=== PATIENT | female | born 1955 | race Caucasian/White ===

== ENCOUNTER 2016-11-24 09:43 | Inpatient (IN) | payer MEDICARE, OTHER ==
[~2016-11-24] VITALS: Ht 157.5 cm; Wt 49.5 kg
[2016-11-24] VITALS (10 sets, daily range): BP systolic 105–112; BP diastolic 64–70; PULSE 85–100; RESP 19–24; TEMP 97.6–98.7; O2SAT 98–100
[2016-11-24] MEDS: SODIUM CHLOR 0.9% 1000 ML INJ 1,000 ML IV SCH (11:30)
[2016-11-24] MEDS ORDERED: ACETAMINOPHEN 325 MG TAB PO PRN (11:30)
[2016-11-24] MEDS ORDERED: CHLORHEXIDINE GLUCONATE 2 % 1 PACK (2 CLOTHS) TOP PRN (11:30)
[2016-11-24] MEDS ORDERED: MISCELLANEOUS NURSING INFORMATION XX SCH (11:30)
[2016-11-24] MEDS ORDERED: MAGNESIUM SULFATE INJ 4 GM in SODIUM CHLORIDE 0.9% INJ 92 ML IV PRN (11:45)
[2016-11-24] MEDS ORDERED: POTASSIUM PHOSPHATE MONOBASIC 500 MG TAB PO PRN (11:45)
[2016-11-24] MEDS ORDERED: POTASSIUM CHLOR 40 MEQ PREMIX 100 ML IV PRN ×2 (11:45)
[2016-11-24] MEDS ORDERED: POTASSIUM CHLOR 20 MEQ PREMIX 100 ML IV PRN (11:45)
[2016-11-24] MEDS ORDERED: MAGNESIUM OXIDE 400 MG TAB PO PRN (11:45)
[2016-11-24] MEDS ORDERED: MAGNESIUM SULFATE INJ 2 GM in SODIUM CHLORIDE 0.9% INJ 96 ML IV PRN (11:45)
[2016-11-24] MEDS ORDERED: POTASSIUM PHOSPHATE INJ 30 MMOL in SODIUM CHLOR 0.9% 250 ML INJ 250 ML IV PRN (11:45)
[2016-11-24] MEDS ORDERED: POTASSIUM PHOSPHATE MONOBASIC 500 MG TAB PO/TUBE PRN (11:45)
[2016-11-24] MEDS ORDERED: SODIUM PHOSPHATE INJ 30 MMOL in SODIUM CHLOR 0.9% 250 ML INJ 240 ML IV PRN (11:45)
[2016-11-24] MEDS: RESP: ALBUTEROL 2.5 MG/IPRATROPIUM 0.5 MG NEB (SCH) NEB ×2 (12:00→21:06)
[2016-11-24] MEDS: LEVOFLOXACIN 750 MG PREMIX INJ 150 ML IV SCH (12:34)
[2016-11-24] MEDS: methylPREDNISolone SOD SUCC 125 MG/2 ML VIAL IV PUSH SCH ×3 (12:34→23:43)
[2016-11-24] MEDS: ENOXAPARIN SODIUM 40 MG/0.4 ML SYRINGE SQ SCH (12:35)
[2016-11-24 13:08] LABS: BLOOD GAS BASE EXCESS 1.9 mmol/L (-2-2); BLOOD GAS CARBOXYHEMOGLOBIN 0.8 % (0-4); BLOOD GAS HCO3 26 mmol/L (22-26); BLOOD GAS O2 HGB SATURATION 97 % (90-100); BLOOD GAS OXYGEN CONTENT 16.7 Vol % (12.0-20.0); BLOOD GAS PCO2 45 mmHg (38-42); BLOOD GAS PO2 153 mmHg (61-120); TEMP CORR TO 98.6
[2016-11-24 13:09] LABS: CRITICAL VALUE NO; OXYGEN DEVICE VENTILATOR; VENT SETTINGS VOLUME/AC 12/500/+5
[2016-11-24 13:10] LABS: FIO2 40 %
[2016-11-24 13:11] LABS: DRAW SITE RT RADIAL; NUMBER OF ARTERIAL PUNCTURES 2; STAT NO; ULNAR PULSE PRESENT
--- NOTE | 2016-11-24 13:24 | HHI.HP ---
[facility] Service Critical Care Medicine Primary Care Physician Unknown Admission Diagnosis Diagnosis: (1) Acute respiratory failure Diagnosis: Principal (2) COPD with acute exacerbation Diagnosis: Principal (3) Hypokalemia Diagnosis: Principal (4) COPD (chronic obstructive pulmonary disease) Diagnosis: Secondary (5) Tobacco abuse Diagnosis: Secondary (6) Hypertension Diagnosis: Secondary Chief Complaint: Severe SOB Respiratory failure Travel History International Travel<30 Days: No Contact w/Intl Traveler <30 Da: No Traveled to Known Affected Are: No Sepsis Criteria SIRS Criteria (2 or more): Heart rate over 90, RR > 20 or PaCO2 < 32 Criteria Outcome: Meets SIRS criteria History of Present Illness Patient is a 60-year-old female with past medical history of COPD, hypertension , tobacco abuse. Apparently patient called EMS for increasing shortness of breath and COPD exacerbation. EMS gave her back to back breathing treatments but due to impending respiratory failure patient was intubated. Patient received 2 mg of Ativan and 20 mg of etomidate for sedation and for intubation. In the ER patient was given IV Solu-Medrol and breathing treatments. Chest x- ray was unremarkable. CT pulmonary angiogram did not show any pulmonary embolism or pneumonia shortly chronic scarring. Patient was transferred to [facility] from [place] ER I evaluated the patient in the ICU. She is intubated sedated has bilateral wheezing on exam. is at the bedside, confirms ongoing smoking history and history of COPD. No previous intubations. I have placed her on scheduled IV Solu-Medrol, scheduled DuoNeb and IV Levaquin. Sputum culture is ordered Review of Systems ROS Limitations: Intubated Past Family Social History Allergies: Coded Allergies: No Known Allergies (Unverified , 11/24/16) Past Medical History COPD Hypertension Tobacco abuse Past Surgical History 4 Reported Medications is unsure of the name of the medications, and they live in [place] Active Ordered Medications Reviewed Family History Unable to obtain family history as patient is intubated Social History No alcohol or drug use Smokes cigarettes Physical Exam Vital Signs Vital Signs Date Time Temp Pulse Resp B/P Pulse Ox O2 Delivery O2 Flow Rate FiO2 11/24/16 12:00 100 40 11/24/16 12:00 98.7 85 24 105/66 100 11/24/16 12:00 85 11/24/16 10:15 100 40 11/24/16 10:00 100 Mechanical Ventilator 11/24/16 10:00 98 Physical Exam GENERAL: Intubated, intermittently coughing on vent SKIN: Warm and dry. No cyanosis or pallor HEAD: Atraumatic. Normocephalic. EYES: Pupils equal and round. ENT: Orotracheally intubated NECK: Trachea midline. No JVD. CARDIOVASCULAR: S1-S2 normal no murmurs RESPIRATORY: Intubated, equal bilateral air entry chest wall rise and auscultation. Bilateral expiratory wheezes and coarse rhonchi GASTROINTESTINAL: Abdomen soft, non-tender, nondistended. Hepatic and splenic margins not palpable. Well-healed abdominal scars MUSCULOSKELETAL: Extremities without clubbing, cyanosis, or edema. No obvious deformities. NEUROLOGICAL: Intubated sedated with propofol. Purposefully moves all extremities Laboratory Laboratory Tests Test 11/24/16 12:55 Blood Gas Puncture Site RT RADIAL Blood Gas Patient Temperature 98.6 Blood Gas HCO3 26 Blood Gas Base Excess 1.9 Blood Gas Oxygen Saturation 97 Arterial Blood pH 7.39 Arterial Blood Partial 45 Pressure CO2 Arterial Blood Partial 153 Pressure O2 Arterial Blood Oxygen Content 16.7 Arterial Blood 0.8 Carboxyhemoglobin Arterial Blood Methemoglobin 1.0 Blood Gas Hemoglobin 12.0 Oxygen Delivery Device VENTILATOR Blood Gas Ventilator Setting VOLUME/AC 12/500/+5 Blood Gas Inspired Oxygen [address] pulmonary angiogram negative for PE. Chronic scarring Assessment and Plan Assessment and Plan NEURO: - Propofol for sedation and ventilator synchrony RESP: Acute COPD exacerbation Acute hypercapnic respiratory failure - AC/VC vent support - Solumedrol 60 mg IV q8h - DuoNeb every 4 hours scheduled and when necessary - Empiric Levaquin - Check sputum culture - Tobacco cessation CV: - Normal saline IV fluids 1L bolus and 75 ml per hour GI: - NPO. IV Protonix 40 mg daily : - Monitor renal function closely. Méndez catheter. ID: - Check sputum culture. Empiric Levaquin HEME: - Monitor CBC, CMP ENDO: Hypokalemia - Electrolyte Replacement per protocol PROPH: - Bilateral lower extremity SCDs. Lovenox 40 mg daily, protonix IV LINES: - Utilize peripheral IVs, central line if needed CC time 38 min Code Status Full Discussed Condition With Patient's and bedside RN Problem Qualifiers (1) Acute respiratory failure: Qualified Code: J96.02 - Acute respiratory failure with hypercapnia Kaylene Hill MD Nov 24, 2016 13:24
[2016-11-24 19:24] LABS: MAGNESIUM 1.9 MG/DL (1.5-2.5)
[2016-11-24] MEDS: CHLORHEXIDINE 0.12% (ORAL KIT) 15 ML CUP MT SCH (20:00)
[2016-11-24] MEDS: FAMOTIDINE 20 MG/2 ML VIAL IV PUSH SCH (20:22)
[2016-11-25] VITALS (21 sets, daily range): BP systolic 97–112; BP diastolic 56–60; PULSE 84–114; RESP 12–27; TEMP 97.8–99.2; O2SAT 93–100
[2016-11-25] MEDS: SODIUM CHLOR 0.9% 1000 ML INJ 1,000 ML IV SCH ×2 (00:50→14:10)
[2016-11-25] MEDS: RESP: ALBUTEROL 2.5 MG/IPRATROPIUM 0.5 MG NEB (SCH) NEB ×7 (04:00→22:55)
[2016-11-25] MEDS: CHLORHEXIDINE GLUCONATE 2 % 1 PACK (2 CLOTHS) TOP SCH (04:00)
[2016-11-25 05:37] LABS: AUTOMATED NEUTROPHIL # 7.5 TH/MM3 (1.8-7.7); BASOPHIL % 0.1 % (0.0-2.0); HEMATOCRIT 36.8 % (35.0-46.0); HEMO FLAGS DIFF FINAL; LYMPH % 6.2 % (9.0-44.0); LYMPHOCYTE # 0.6 TH/MM3 (1.0-4.8); MEAN CELL VOLUME 94.4 FL (80.0-100.0); MEAN CORPUSCULAR HEMOGLOBIN 31.4 PG (27.0-34.0); MEAN CORPUSCULAR HGB CONC 33.3 % (32.0-36.0); MONO % 8.5 % (0.0-8.0); NEUT % 85.2 % (16.0-70.0); PLATELET COUNT 159 TH/MM3 (150-450); WHITE BLOOD COUNT 8.8 TH/MM3 (4.0-11.0)
[2016-11-25] MEDS: methylPREDNISolone SOD SUCC 125 MG/2 ML VIAL IV PUSH SCH ×3 (05:41→18:06)
[2016-11-25 06:02] LABS: ANION GAP 7 MEQ/L (5-15); AST (GOT) 41 U/L (15-37); BICARBONATE 27.3 MEQ/L (21.0-32.0); BLOOD UREA NITROGEN 15 MG/DL (7-18); CHLORIDE 106 MEQ/L (98-107); GLOMERULAR FILTRATION RATE 117 ML/MIN (>89); POTASSIUM 3.7 MEQ/L (3.5-5.1); SODIUM (NA) 140 MEQ/L (136-145)
[2016-11-25 06:04] LABS: ALT (GPT) 30 U/L (10-53)
[2016-11-25 06:05] LABS: ALKALINE PHOSPHATASE 59 U/L (45-117); TOTAL BILIRUBIN ADULT 0.4 MG/DL (0.2-1.0)
--- NOTE | 2016-11-25 06:22 | RADRPT ---
EXAM DATE/TIME: 11/25/2016 04:48 [facility] COMPARISON: CT PULMONARY ANGIOGRAM, November 24, 2016, 7:02. CHEST SINGLE AP, November 24, 2016, 2:57. INDICATIONS : Shortness of breath. MEDICAL HISTORY : Unobtainable. SURGICAL HISTORY : Unobtainable. ENCOUNTER: Subsequent ACUITY: 2 days PAIN SCORE: Non-responsive. LOCATION: Bilateral chest FINDINGS: Portable AP view of the chest demonstrates a normal-sized cardiac silhouette. No effusion, consolidat ion, or pneumothorax is visualized. The bones and soft tissues demonstrate no acute abnormality. ETT and nasogastric tube are present. CONCLUSION: No acute cardiopulmonary abnormality is identified. Sergio Hall MD on November 25, 2016 at 6:20 Board Certified Radiologist. This report was verified electronically.
[2016-11-25] MEDS: CHLORHEXIDINE 0.12% (ORAL KIT) 15 ML CUP MT SCH ×2 (08:52→20:00)
[2016-11-25] MEDS: FAMOTIDINE 20 MG/2 ML VIAL IV PUSH SCH ×2 (08:52→20:43)
[2016-11-25] MEDS: RESP: ALBUTEROL 2.5 MG/3 ML NEB (PRN) INH ×2 (09:29→15:32)
--- NOTE | 2016-11-25 09:40 | HHI.CCPN ---
Subjective Remarks/Hospital Course Patient is a 60-year-old female with past medical history of COPD, hypertension , tobacco abuse. Apparently patient called EMS for increasing shortness of breath and COPD exacerbation. EMS gave her back to back breathing treatments but due to impending respiratory failure patient was intubated. Patient received 2 mg of Ativan and 20 mg of etomidate for sedation and for intubation. In the ER patient was given IV Solu-Medrol and breathing treatments. Chest x- ray was unremarkable. CT pulmonary angiogram did not show any pulmonary embolism or pneumonia shortly chronic scarring. Patient was transferred to [facility] from [place] ER I evaluated the patient in the ICU. She is intubated sedated has bilateral wheezing on exam. is at the bedside, confirms ongoing smoking history and history of COPD. No previous intubations. I have placed her on scheduled IV Solu-Medrol, scheduled DuoNeb and IV Levaquin. Sputum culture is ordered SUBJ 11/25: Remains intubated on sedation lightening patient is alert awake but becomes very agitated. Bilateral wheezing and respiratory distress on CPAP trial, patient was re-sedated due to respiratory distress and agitation Objective Vital Signs Date Time Temp Pulse Resp B/P Pulse Ox O2 Delivery O2 Flow Rate FiO2 11/25/16 09:10 35 11/25/16 09:10 99 11/25/16 07:00 Mechanical Ventilator 11/25/16 06:00 88 11/25/16 04:00 98.6 15 107/59 Intake and Output 11/24/16 11/24/16 11/24/16 07:59 15:59 23:59 Intake Total 346 ml 731 ml Output Total 400 ml 250 ml Balance -54 ml 481 ml Result Diagram: 11/25/16 0521 11/25/16 0521 Other Results Laboratory Tests Test 11/24/16 12:55 Blood Gas Puncture Site RT RADIAL Blood Gas Patient Temperature 98.6 Blood Gas HCO3 26 mmol/L (22-26) Blood Gas Base Excess 1.9 mmol/L (-2-2) Blood Gas Oxygen Saturation 97 % (90-100) Arterial Blood pH 7.39 (7.380-7.420) Arterial Blood Partial 45 mmHg (38-42) Pressure CO2 Arterial Blood Partial 153 mmHg Pressure O2 (61-120) Arterial Blood Oxygen Content 16.7 Vol % (12.0-20.0) Arterial Blood 0.8 % (0-4) Carboxyhemoglobin Arterial Blood Methemoglobin 1.0 % (0-2) Blood Gas Hemoglobin 12.0 G/DL (12.0-16.0) Oxygen Delivery Device VENTILATOR Blood Gas Ventilator Setting VOLUME/AC 12/500/+5 Blood Gas Inspired Oxygen 40 % Imaging CT pulmonary angiogram negative for PE. Chronic scarring Objective Remarks GENERAL: Intubated, intermittently coughing SKIN: Warm and dry. No cyanosis or pallor HEAD: Atraumatic. Normocephalic. EYES: Pupils equal and round. ENT: Orotracheally intubated NECK: Trachea midline. No JVD. CARDIOVASCULAR: S1-S2 normal no murmurs RESPIRATORY: Intubated, equal bilateral air entry chest wall rise and auscultation. Bilateral expiratory wheezes and coarse rhonchi GASTROINTESTINAL: Abdomen soft, non-tender, nondistended. Hepatic and splenic margins not palpable. Well-healed abdominal scars MUSCULOSKELETAL: Extremities without clubbing, cyanosis, or edema. No obvious deformities. NEUROLOGICAL: Intubated sedated with propofol. Purposefully moves all extremities Urinary Catheter: Yes Assessment to: Continue A/P Assessment and Plan NEURO: - Propofol for sedation and ventilator synchrony - Start Precedex to facilitate ventilator weaning RESP: Acute COPD exacerbation Acute hypercapnic respiratory failure - AC/VC vent support, daily CPAP - Solumedrol 60 mg IV q8h - DuoNeb every 4 hours scheduled and when necessary - Empiric Levaquin - F/U sputum culture - Tobacco cessation CV: - Normal saline IV fluids 75 ml per hour GI: - NPO. IV Protonix 40 mg daily : - Monitor renal function closely. Méndez catheter. ID: - F/U sputum culture. Empiric Levaquin HEME: - Monitor CBC, CMP ENDO: Hypokalemia - Electrolyte Replacement per protocol PROPH: - Bilateral lower extremity SCDs. Lovenox 40 mg daily, protonix IV LINES: - Utilize peripheral IVs, central line if needed CC time 32 min Failing CPAP due to severe respiratory distress and wheezing, remains critically ill. Continue IV steroids and DuoNeb with empiric antibiotics. Family at bedside updated Kaylene Hill MD Nov 25, 2016 09:40
[2016-11-25] MEDS: DEXMEDETOMIDINE INJ 200 MCG in SODIUM CHLORIDE 0.9% INJ 50 ML IV SCH (10:28)
[2016-11-25] MEDS ORDERED: RESP: ALBUTEROL 2.5 MG/IPRATROPIUM 0.5 MG NEB (SCH) NEB ONE (11:00)
[2016-11-25] MEDS: LEVOFLOXACIN 750 MG PREMIX INJ 150 ML IV SCH (11:47)
[2016-11-25] MEDS: ENOXAPARIN SODIUM 40 MG/0.4 ML SYRINGE SQ SCH (11:47)
[2016-11-25] MEDS ORDERED: ETOMIDATE 20 MG/10 ML VIAL ONE (15:18)
[2016-11-25] MEDS ORDERED: VECURONIUM BROMIDE 10 MG VIAL ONE (15:21)
[2016-11-25] MEDS: PROPOFOL 1000 MG/100 ML INJ 100 ML IV SCH (15:57)
--- NOTE | 2016-11-25 15:59 | PD.PROCEDR ---
Procedure Note Procedure After the risks and benefits were discussed the following procedure was performed: INTUBATION: The patient was put in optimal position for the procedure. Rapid sequence intubation was initiated by me using 20 milligrams of etomidate IV and 10 milligrams of Vecuronium IV. DL Mac 4 grad 1 view. (After I confirmed a Grade 1 view, the patient was intubated with a 7.5 cuffed endotracheal tube, by RT Nadine Gonzales, with myself being present at head of bed for procedure). Tube placement was confirmed by visualization of the tube and balloon passing through the cords, capnometry and subsequent chest x-ray. Breath sounds were equal and well aerated bilaterally postintubation. No breath sounds over stomach. Patient tolerated procedure well. Kaylene Hill MD Nov 25, 2016 15:59
[2016-11-25 16:51] LABS: BLOOD GAS BASE EXCESS 1.2 mmol/L (-2-2); BLOOD GAS CARBOXYHEMOGLOBIN 0.5 % (0-4); BLOOD GAS HCO3 27 mmol/L (22-26); BLOOD GAS METHEMOGLOBIN 0.9 % (0-2); BLOOD GAS O2 HGB SATURATION 98 % (90-100); BLOOD GAS OXYGEN CONTENT 16.8 Vol % (12.0-20.0); BLOOD GAS PCO2 56 mmHg (38-42); BLOOD GAS PO2 186 mmHg (61-120); TEMP CORR TO 98.6
[2016-11-25 16:52] LABS: CRITICAL VALUE YES; DRAW SITE RT RADIAL; FIO2 50 %; NUMBER OF ARTERIAL PUNCTURES 1; OXYGEN DEVICE VENTILATOR; STAT NO; ULNAR PULSE PRESENT; VENT SETTINGS AC/RR12/VT425/PEEP5
--- NOTE | 2016-11-25 17:19 | RADRPT ---
EXAM DATE/TIME: 11/25/2016 16:18 [facility] COMPARISON: CHEST SINGLE AP, November 25, 2016, 4:48. INDICATIONS : Post intubation. MEDICAL HISTORY : Unobtainable. SURGICAL HISTORY : Unobtainable. ENCOUNTER: Subsequent ACUITY: 1 day PAIN SCORE: Non-responsive. LOCATION: chest FINDINGS: Interval removal of nasogastric catheter. ETT is approximately 2 cm above the annia. Lungs are clear without significant focal pleural or parenchymal opacities. Cardi cell contours are within normal li mits. Remainder of the exam is unchanged. CONCLUSION: 1. ETT approximately 2 cm above the annia. 2. No acute abnormality. Juan Antonio Gallo MD on November 25, 2016 at 17:16 Board Certified Radiologist. This report was verified electronically.
[2016-11-25 18:18] LABS: POTASSIUM 3.5 MEQ/L (3.5-5.1)
[2016-11-25 18:49] LABS: CKMB 5.3 NG/ML (0.5-3.6)
[2016-11-25] MEDS ORDERED: HEPARIN SODIUM - IV 10,000 UNITS/10 ML VIAL IV PRN ×2 (19:30)
[2016-11-25] MEDS ORDERED: ASPIRIN 325 MG TAB PO ONE (20:00)
[2016-11-25] MEDS: HEPARIN 25,000 UNITS-D5W 250 ML - PREMIX IV SCH (20:49)
[2016-11-26] VITALS (17 sets, daily range): BP systolic 89–132; BP diastolic 53–72; PULSE 75–104; RESP 12–26; TEMP 97.8–99.3; O2SAT 98–100
[2016-11-26] MEDS: methylPREDNISolone SOD SUCC 125 MG/2 ML VIAL IV PUSH SCH ×4 (00:12→18:45)
[2016-11-26] MEDS: RESP: ALBUTEROL 2.5 MG/IPRATROPIUM 0.5 MG NEB (SCH) NEB ×6 (02:44→23:27)
[2016-11-26] MEDS: CHLORHEXIDINE GLUCONATE 2 % 1 PACK (2 CLOTHS) TOP SCH (03:02)
[2016-11-26] MEDS: SODIUM CHLOR 0.9% 1000 ML INJ 1,000 ML IV SCH ×2 (03:02→15:26)
[2016-11-26] MEDS: PROPOFOL 1000 MG/100 ML INJ 100 ML IV SCH ×3 (04:01→23:10)
[2016-11-26 04:24] LABS: APTT (PATIENT) 37.7 SEC (24.3-30.1)
[2016-11-26] MEDS: MIDAZOLAM 100 MG/ML INJ 100 ML IV SCH ×2 (06:43→13:07)
[2016-11-26] MEDS ORDERED: ROCURONIUM INJ 50 MG/5 ML VIAL IV ONE (08:45)
[2016-11-26] MEDS: CHLORHEXIDINE 0.12% (ORAL KIT) 15 ML CUP MT SCH ×2 (09:39→20:23)
[2016-11-26] MEDS: FAMOTIDINE 20 MG/2 ML VIAL IV PUSH SCH ×2 (09:46→20:24)
[2016-11-26] MEDS: ASPIRIN 325 MG TAB PO SCH (09:47)
[2016-11-26] MEDS ORDERED: SPIRCAP INH (10:19)
[2016-11-26] MEDS ORDERED: PRED10PA PO (10:19)
[2016-11-26] MEDS ORDERED: GUAI100S5 PO (10:19)
[2016-11-26] MEDS ORDERED: DULO1CAP3 PO (10:19)
[2016-11-26] MEDS ORDERED: DOXY100C PO (10:19)
[2016-11-26] MEDS ORDERED: LISI-515 PO (10:19)
[2016-11-26] MEDS ORDERED: VENTAER INH (10:19)
[2016-11-26] MEDS ORDERED: BUSP10TA PO (10:19)
[2016-11-26] MEDS: RESP: ALBUTEROL 2.5 MG/3 ML NEB (PRN) INH ×2 (10:20→21:22)
--- NOTE | 2016-11-26 10:26 | HHI.CCPN ---
Subjective Remarks/Hospital Course Patient is a 60-year-old female with past medical history of COPD, hypertension , tobacco abuse. Apparently patient called EMS for increasing shortness of breath and COPD exacerbation. EMS gave her back to back breathing treatments but due to impending respiratory failure patient was intubated. Patient received 2 mg of Ativan and 20 mg of etomidate for sedation and for intubation. In the ER patient was given IV Solu-Medrol and breathing treatments. Chest x- ray was unremarkable. CT pulmonary angiogram did not show any pulmonary embolism or pneumonia shortly chronic scarring. Patient was transferred to [facility] from [place] ER I evaluated the patient in the ICU. She is intubated sedated has bilateral wheezing on exam. is at the bedside, confirms ongoing smoking history and history of COPD. No previous intubations. I have placed her on scheduled IV Solu-Medrol, scheduled DuoNeb and IV Levaquin. Sputum culture is ordered SUBJ 11/25: Remains intubated on sedation lightening patient is alert awake but becomes very agitated. Bilateral wheezing and respiratory distress on CPAP trial, patient was re-sedated due to respiratory distress and agitation 11/26: Failed extubation trial yesterday. Developed severe shortness of breath and respiratory distress and was reintubated. Today has bilateral inspiratory and expiratory wheezing. Will not attempt vent weaning today Objective Vital Signs Date Time Temp Pulse Resp B/P Pulse Ox O2 Delivery O2 Flow Rate FiO2 11/26/16 07:32 100 35 11/26/16 06:00 82 11/26/16 04:00 98.3 18 131/71 11/25/16 19:00 Mechanical Ventilator 11/25/16 14:32 3 Intake and Output 11/25/16 11/25/16 11/26/16 08:00 16:00 00:00 Intake Total 666 ml 978 ml 592 ml Output Total 400 ml 325 ml 425 ml Balance 266 ml 653 ml 167 ml Result Diagram: 11/25/16 0521 11/25/16 1739 Other Results Laboratory Tests Test 11/25/16 16:38 Blood Gas Puncture Site RT RADIAL Blood Gas Patient Temperature 98.6 Blood Gas HCO3 27 mmol/L (22-26) Blood Gas Base Excess 1.2 mmol/L (-2-2) Blood Gas Oxygen Saturation 98 % (90-100) Arterial Blood pH 7.31 (7.380-7.420) Arterial Blood Partial 56 mmHg (38-42) Pressure CO2 Arterial Blood Partial 186 mmHg Pressure O2 (61-120) Arterial Blood Oxygen Content 16.8 Vol % (12.0-20.0) Arterial Blood 0.5 % (0-4) Carboxyhemoglobin Arterial Blood Methemoglobin 0.9 % (0-2) Blood Gas Hemoglobin 12.0 G/DL (12.0-16.0) Oxygen Delivery Device VENTILATOR Blood Gas Ventilator Setting AC/RR12/VT425/PEEP5 Blood Gas Inspired Oxygen 50 % Imaging CT pulmonary angiogram negative for PE. Chronic scarring Objective Remarks GENERAL: Intubated, becomes agitated on sedation lightening SKIN: Warm and dry. No cyanosis or pallor HEAD: Atraumatic. Normocephalic. EYES: Pupils equal and round. ENT: Orotracheally intubated NECK: Trachea midline. No JVD. CARDIOVASCULAR: S1-S2 normal no murmurs RESPIRATORY: Intubated, equal bilateral air entry chest wall rise and auscultation. Bilateral expiratory wheezes and coarse rhonchi GASTROINTESTINAL: Abdomen soft, non-tender, nondistended. Hepatic and splenic margins not palpable. Well-healed abdominal scars MUSCULOSKELETAL: Extremities without clubbing, cyanosis, or edema. No obvious deformities. NEUROLOGICAL: Intubated sedated with propofol, versed. Purposefully moves all extremities A/P Assessment and Plan NEURO: - Propofol, Versed for sedation and ventilator synchrony - Apparently takes Tylenol 3 at home. Start fentanyl infusion for pain control RESP: Acute COPD exacerbation Acute hypercapnic respiratory failure - AC/VC vent support, daily CPAP - Patient was extubated yesterday 11/25/16 but, due to respiratory distress was reintubated and next in the next 1 hour - Solu-medrol 60 mg IV q8h - DuoNeb every 4 hours scheduled and when necessary - Empiric Levaquin - F/U sputum culture - Tobacco cessation CV: - Normal saline IV fluids 75 ml per hour GI: - NPO. IV Protonix 40 mg daily : - Monitor renal function closely. Méndez catheter. ID: - F/U sputum culture. Empiric Levaquin HEME: - Monitor CBC, CMP ENDO: Hypokalemia - Electrolyte Replacement per protocol PROPH: - Bilateral lower extremity SCDs. Lovenox 40 mg daily, protonix IV LINES: - Utilize peripheral IVs, central line if needed CC time 35 min Continues to be critically ill with respiratory failure and COPD exacerbation with bilateral wheezing. Failed extubation yesterday almost immediately due to severe COPD Kaylene Hill MD Nov 26, 2016 10:26
[2016-11-26] MEDS ORDERED: guaiFENesin/CODEINE SYRUP 200 MG/20 MG/10 ML CUP PO PRN (10:30)
--- NOTE | 2016-11-26 10:49 | ECHRPT ---
Indication: RULE OUT GA CONCLUSIONS The left ventricular systolic function is shvhdhwa-li-tijrgxi reduced with an estimated ejection fra ction in the range of 35-40%. Wall thickness is measured at the upper limits of normal. Normal left ventricular size. Severe anterior and apical hypokinesis.There is mild tricuspid valve regurgitation. The estimated pulmonary arterial pressure is 33 mmHg. The pulmonary valve is not well visualized. BP: 131 / 71 HR: 89 Rhythm: Sinus MEASUREMENTS (Male / Female) Normal Values Technical Quality:Fair 2D ECHO LV Diastolic Diameter PLAX 4.3 cm 4.2 - 5.9 / 3.9 - 5.3 cm LV Systolic Diameter PLAX 3.7 cm IVS Diastolic Thickness 1.1 cm 0.6 - 1.0 / 0.6 - 0.9 cm LVPW Diastolic Thickness 1.1 cm 0.6 - 1.0 / 0.6 - 0.9 cm LV Relative Wall Thickness 0.5 LVOT Diameter 1.7 cm LA Systolic Diameter LX 3.0 cm 3.0 - 4.0 / 2.7 - 3.8 cm LA Volume Index 23.3 cm/m 16 - 28 cm/m M-MODE Aortic Root Diameter MM 1.9 cm DOPPLER AV Peak Velocity 105.0 cm/s AV Peak Gradient 4.4 mmHg LVOT Peak Velocity 83.4 cm/s LVOT Peak Gradient 2.8 mmHg AV Area Cont Eq pk 1.8 cm TR Peak Velocity 240.0 cm/s TR Peak Gradient 23.0 mmHg PV Peak Velocity 121.0 cm/s PV Peak Gradient 5.9 mmHg FINDINGS LEFT VENTRICLE The left ventricular systolic function is xheniesl-wz-ydperqm reduced with an estimated ejection fra ction in the range of 35-40%. Wall thickness is measured at the upper limits of normal. Normal left ventricular size. Severe anterior and apical hypokinesis. RIGHT VENTRICLE Normal right ventricular size and systolic function. LEFT ATRIUM The left atrial size is normal. RIGHT ATRIUM The right atrial size is normal. ATRIAL SEPTUM Normal atrial septal thickness without atrial level shunting by limited color doppler interrogation. AORTA The aortic root and proximal ascending aorta are normal in size on limited imaging. MITRAL VALVE Structurally normal mitral valve. No mitral valve stenosis or regurgitation. AORTIC VALVE Trileaflet aortic valve. No aortic valve stenosis or regurgitation. TRICUSPID VALVE There is mild tricuspid valve regurgitation. The estimated pulmonary arterial pressure is 33 mmHg. PULMONARY VALVE The pulmonary valve is not well visualized. VESSELS The inferior vena cava is normal in size. PERICARDIUM No pericardial effusion. Samuel Reese MD (Electronically Signed) Final Date:26 November 2016 10:48
[2016-11-26 11:21] LABS: APTT (PATIENT) 34.8 SEC (24.3-30.1)
[2016-11-26] MEDS: LEVOFLOXACIN 750 MG PREMIX INJ 150 ML IV SCH (11:55)
[2016-11-26] MEDS: fentaNYL DRIP 250 ML IV SCH (11:55)
[2016-11-26] MEDS: busPIRone HCL 10 MG TAB PO SCH (20:24)
[2016-11-26 20:27] LABS: APTT (PATIENT) 45.8 SEC (24.3-30.1)
--- NOTE | 2016-11-26 20:55 | MB ---
cc: JUSTINO RIVERA DATE OF CONSULTATION 11/26/16 HISTORY OF PRESENT ILLNESS Ms. Hollingsworth is a 60 year old white female with history of COPD, hypertension and smoking. She was brought to the emergency room by EMS for severe shortness of breath. She was diagnosed with respiratory failure and was intubated. Her pulmonary angiogram showed no evidence of pulmonary embolism or pneumonia. She was diagnosed with COPD exacerbation. She has had recent shortness of breath but no chest pains. Her echocardiogram showed moderate left ventricular dysfunction with an ejection fraction 35-40% with anterior and apical hypokinesis. PAST MEDICAL HISTORY 1. Positive for COPD, 2. Hypertension, 3. Smoking 4. C-sections ALLERGIES None. MEDICATIONS 1. Spiriva 2. BuSpar. 3. Fentanyl. 4. Aspirin 5. IV Heparin 6. Dexmedetomidine 7. Versed 8. Levofloxacin. 9. Propofol. SOCIAL HISTORY The patient does not drink alcohol. She is a smoker. FAMILY HISTORY Positive for heart disease. REVIEW OF SYSTEMS Otherwise negative. PHYSICAL EXAMINATION VITAL SIGNS: Blood pressure 89/63, pulse 83 and regular. HEENT: The patient is intubated and sedated, 2+ carotid upstrokes. LUNGS: With few wheezes and rhonchi. HEART: Regular with no murmur, gallop or rub. ABDOMEN: Soft. No bruits. EXTREMITIES: Without edema. 1+ distal pulses. NEUROLOGIC: Grossly nonfocal. The patient is sedated. LABORATORY DATA Hemoglobin 12.3, potassium 3.5, creatinine 0.5, AST 41, ALT 30, CK 210, CK-MB 5.3, troponin 1.21 and 1.20. DIAGNOSES 1. Acute exacerbation of chronic COPD 2. Acute respiratory failure 3. Moderate left ventricular dysfunction suggestive of ischemic cardiomyopathy. 4. Hypertension 5. Smoking. DISPOSITION Ms. Hollingsworth will be monitored in the ICU. She will be treated for COPD exacerbation. Her echocardiogram found moderate left ventricular dysfunction with anteroapical wall motion abnormality consistent with ischemic cardiomyopathy. Her troponin is only slightly elevated and is not consistent with recent acute coronary event. I recommend to continue ICU care with ventilatory support. Recommend to continue heparin, aspirin. Once she is stable, I recommend to have add beta-danielito as tolerated and GARRETT inhibitor. I recommend to add statin to her regimen. I will follow her for cardiology during hospitalization. Once she is extubated and stable, we will proceed with further cardiology evaluation. The plan will be discussed with the patient's son. MD BROOK[place]N Lora/ /6:33 PM /8:35 PM
[2016-11-26] MEDS ORDERED: SODIUM CHLOR 0.9% 1000 ML INJ 1,000 ML IV ONE (21:15)
[2016-11-27] VITALS (18 sets, daily range): BP systolic 103–132; BP diastolic 56–79; PULSE 52–86; RESP 10–17; TEMP 96.5–99.1; O2SAT 98–100
[2016-11-27] MEDS: methylPREDNISolone SOD SUCC 125 MG/2 ML VIAL IV PUSH SCH ×4 (00:17→18:17)
[2016-11-27] MEDS: HEPARIN 25,000 UNITS-D5W 250 ML - PREMIX IV SCH (01:12)
[2016-11-27] MEDS: RESP: ALBUTEROL 2.5 MG/3 ML NEB (PRN) INH ×3 (02:24→18:04)
[2016-11-27] MEDS: RESP: ALBUTEROL 2.5 MG/IPRATROPIUM 0.5 MG NEB (SCH) NEB ×5 (03:47→20:14)
[2016-11-27] MEDS: CHLORHEXIDINE GLUCONATE 2 % 1 PACK (2 CLOTHS) TOP SCH (04:09)
[2016-11-27 04:45] LABS: AUTOMATED NEUTROPHIL # 8.9 TH/MM3 (1.8-7.7); BASOPHIL % 0.1 % (0.0-2.0); HEMATOCRIT 35.8 % (35.0-46.0); LYMPH % 4.1 % (9.0-44.0); LYMPHOCYTE # 0.4 TH/MM3 (1.0-4.8); MEAN CELL VOLUME 95.5 FL (80.0-100.0); MEAN CORPUSCULAR HEMOGLOBIN 31.3 PG (27.0-34.0); MEAN CORPUSCULAR HGB CONC 32.8 % (32.0-36.0); MONO % 4.4 % (0.0-8.0); NEUT % 91.4 % (16.0-70.0); PLATELET COUNT 180 TH/MM3 (150-450); RED BLOOD COUNT 3.75 MIL/MM3 (4.00-5.30); RED CELL DISTRIBUTION WIDTH 14.3 % (11.6-17.2); WHITE BLOOD COUNT 9.8 TH/MM3 (4.0-11.0)
[2016-11-27 04:54] LABS: HEMO FLAGS AUTO DIFF
[2016-11-27 04:58] LABS: APTT (PATIENT) 41.1 SEC (24.3-30.1)
[2016-11-27 05:12] LABS: ANION GAP 6 MEQ/L (5-15); AST (GOT) 25 U/L (15-37); BICARBONATE 26.4 MEQ/L (21.0-32.0); BLOOD UREA NITROGEN 20 MG/DL (7-18); CHLORIDE 111 MEQ/L (98-107); GLOMERULAR FILTRATION RATE 137 ML/MIN (>89); MAGNESIUM 2.3 MG/DL (1.5-2.5); POTASSIUM 4.1 MEQ/L (3.5-5.1); SODIUM (NA) 143 MEQ/L (136-145)
[2016-11-27 05:14] LABS: ALKALINE PHOSPHATASE 49 U/L (45-117); ALT (GPT) 31 U/L (10-53); TOTAL BILIRUBIN ADULT 0.3 MG/DL (0.2-1.0)
[2016-11-27 05:26] LABS: SCAN/DIFF AUTO DIFF CONFIRMED
--- NOTE | 2016-11-27 05:40 | RADRPT ---
EXAM DATE/TIME: 11/27/2016 04:25 [facility] COMPARISON: CHEST SINGLE AP, November 25, 2016, 16:18. INDICATIONS : Respiratory disease. MEDICAL HISTORY : Unobtainable SURGICAL HISTORY : Unobtainable ENCOUNTER: Subsequent ACUITY: 3 days PAIN SCORE: Non-responsive. LOCATION: Bilateral chest FINDINGS: Single AP view of the chest. Nasogastric tube is now in place with the tip below the [id number] of the radiograph. Endotracheal tube remains in place. Lungs are clear. No evidence of pleural effusion or pneumothorax. CONCLUSION: Nasogastric tube non-place with the tip below the field of view of the radiograph. Kermit Veliz MD on November 27, 2016 at 5:38 Board Certified Radiologist. This report was verified electronically.
[2016-11-27] MEDS: SODIUM CHLOR 0.9% 1000 ML INJ 1,000 ML IV SCH ×2 (06:06→11:52)
[2016-11-27] MEDS: PROPOFOL 1000 MG/100 ML INJ 100 ML IV SCH ×4 (06:40→23:03)
[2016-11-27] MEDS: TIOTROPIUM BROMIDE 18 MCG INH INH SCH (09:00)
[2016-11-27] MEDS: busPIRone HCL 10 MG TAB PO SCH ×2 (09:22→20:24)
[2016-11-27] MEDS: FAMOTIDINE 20 MG/2 ML VIAL IV PUSH SCH ×2 (09:22→20:24)
[2016-11-27] MEDS: ASPIRIN 325 MG TAB PO SCH (09:22)
[2016-11-27] MEDS: CHLORHEXIDINE 0.12% (ORAL KIT) 15 ML CUP MT SCH ×2 (09:23→20:23)
[2016-11-27] MEDS: MIDAZOLAM 100 MG/ML INJ 100 ML IV SCH ×2 (11:51→23:03)
[2016-11-27] MEDS: LEVOFLOXACIN 750 MG PREMIX INJ 150 ML IV SCH (11:51)
[2016-11-27 12:15] LABS: APTT (PATIENT) 49.9 SEC (24.3-30.1)
--- NOTE | 2016-11-27 12:37 | HHI.CCPN ---
Subjective Remarks/Hospital Course Patient is a 60-year-old female with past medical history of COPD, hypertension , tobacco abuse. Apparently patient called EMS for increasing shortness of breath and COPD exacerbation. EMS gave her back to back breathing treatments but due to impending respiratory failure patient was intubated. Patient received 2 mg of Ativan and 20 mg of etomidate for sedation and for intubation. In the ER patient was given IV Solu-Medrol and breathing treatments. Chest x- ray was unremarkable. CT pulmonary angiogram did not show any pulmonary embolism or pneumonia shortly chronic scarring. Patient was transferred to [facility] from [place] [facility] I evaluated the patient in the ICU. She is intubated sedated has bilateral wheezing on exam. is at the bedside, confirms ongoing smoking history and history of COPD. No previous intubations. I have placed her on scheduled IV Solu-Medrol, scheduled DuoNeb and IV Levaquin. Sputum culture is ordered SUBJ 11/25: Remains intubated on sedation lightening patient is alert awake but becomes very agitated. Bilateral wheezing and respiratory distress on CPAP trial, patient was re-sedated due to respiratory distress and agitation 11/26: Failed extubation trial yesterday. Developed severe shortness of breath and respiratory distress and was reintubated. Today has bilateral inspiratory and expiratory wheezing. Will not attempt vent weaning today 11/27: Remains intubated. Continues to have bilateral wheezing. 2D Echo: The LV systolic function is qcxbvarp-ls-rjgopjxc reduced with an estimated EF 35-40% . Severe anterior and apical hypokinesis. Echo consistent with ischemic cardiomyopathy. Further cardiac workup once extubated-Dr. Lind Objective Vital Signs Date Time Temp Pulse Resp B/P Pulse Ox O2 Delivery O2 Flow Rate FiO2 11/27/16 12:00 35 11/27/16 12:00 67 11/27/16 08:18 99 11/27/16 07:00 Mechanical Ventilator 3.00 11/27/16 04:00 99.1 12 112/58 Intake and Output 11/26/16 11/26/16 11/27/16 08:00 16:00 00:00 Intake Total 750 ml 827 ml 1395 ml Output Total 500 ml 300 ml 140 ml Balance 250 ml 527 ml 1255 ml Result Diagram: 11/27/16 0352 11/27/16 0352 Other Results Microbiology Date/Time Procedure Status Source Growth 11/25/16 18:15 Gram Stain - Final Complete Sputum Endotracheal 11/25/16 18:15 Sputum Culture - Final Complete Sputum Endotracheal HEAVY GROWTH NORMAL RESPIRATORY [facility] Imaging CT pulmonary angiogram negative for PE. Chronic scarring Objective Remarks GENERAL: Intubated, becomes agitated on sedation lightening SKIN: Warm and dry. No cyanosis or pallor HEAD: Atraumatic. Normocephalic. EYES: Pupils equal and round. ENT: Orotracheally intubated NECK: Trachea midline. No JVD. CARDIOVASCULAR: S1-S2 normal no murmurs RESPIRATORY: Intubated, equal bilateral air entry. Bilateral expiratory wheezes and coarse rhonchi GASTROINTESTINAL: Abdomen soft, non-tender, nondistended. Hepatic and splenic margins not palpable. Well-healed abdominal scars MUSCULOSKELETAL: Extremities without clubbing, cyanosis, or edema. No obvious deformities. NEUROLOGICAL: Intubated sedated with propofol, versed. Purposefully moves all extremities A/P Assessment and Plan NEURO: - Propofol, Versed and fentanyl for sedation and ventilator synchrony - Apparently takes Tylenol 3 at home. - Daily sedation vacation if patient can tolerate RESP: Acute COPD exacerbation Acute hypercapnic respiratory failure - PRVC vent support, still with significant wheezing. No SBT - Patient was extubated 11/25/16 but, due to respiratory distress was reintubated same day - Solu-medrol 60 mg IV q8h - DuoNeb every 4 hours scheduled and when necessary - Empiric Levaquin - F/U sputum culture - Tobacco cessation CV: Ischemic cardiomyopathy Elevated troponin - Normal saline IV fluids 75 ml per hour-KVO - LV systolic function is sgymcydi-qh-adfkbxm reduced with an estimated EF 35- 40%. - Severe anterior and apical hypokinesis. - Further cardiac workup once extubated, get previous cardiac catheterization report - Start Coreg 3.125 mg twice a day - Continue aspirin. Check lipid profile start Lipitor - Chest x-ray did not show any evidence of heart failure GI: - Start Jevity today. IV Protonix 40 mg daily - Bowel regimen : - Monitor renal function closely. Méndez catheter. ID: - F/U sputum culture. Empiric Levaquin HEME: - Monitor CBC, CMP ENDO: Hypokalemia - Electrolyte Replacement per protocol PROPH: - Bilateral lower extremity SCDs. Lovenox 40 mg daily, protonix IV LINES: - Utilize peripheral IVs, central line if needed CC time 35 min Continues to be critically ill with respiratory failure and COPD exacerbation with bilateral wheezing. Failed extubation 11/25 almost immediately due to severe COPD. now with elevated troponin and ischemic heart disease Kaylene Hill MD Nov 27, 2016 12:37
[2016-11-27] MEDS ORDERED: ROCURONIUM INJ 50 MG/5 ML VIAL IV ONE (13:00)
[2016-11-27] MEDS: CARVEDILOL 3.125 MG TAB PO SCH (13:01)
[2016-11-27] MEDS: BENEPROTEIN POWDER 1 PACK G-TUBE SCH ×2 (13:02→18:17)
[2016-11-27] MEDS: NICOTINE 14 MG/24 HR PATCH TOPICAL SCH (15:09)
--- NOTE | 2016-11-27 18:00 | PD.CARD.PN ---
Subjective Subjective Remarks Intubated, sedated Objective Medications Current Medications Medications (Trade) Dose Ordered Sig/Jeniffer Route Start Time Stop Time Status Last Admin (NS 1000 ml Inj) 1,000 ml @ 75 mls/hr [id number] IV 11/24/16 11:30 11/27/16 11:52 (Tylenol) 650 mg Q6H PRN PO 11/24/16 11:30 (Peridex 0.12% Liq) 15 ml BID@08,20 MT 11/24/16 20:00 11/27/16 09:23 (Pepcid Inj) 20 mg Q12HR IV PUSH 11/24/16 21:00 11/27/16 09:22 Miscellaneous Information 1 [id number] XX 11/24/16 11:30 11/24/16 11:30 (Chlorhexidine 2% Cloth) 3 pack Taper DAILY@04 TOP 11/25/16 04:00 11/21/17 03:59 11/27/16 04:09 Chlorhexidine Gluconate 3 pack 3 pack UNSCH PRN TOP 11/24/16 11:30 Propofol 100 ml @ 0 mls/hr TITRATE IV 11/24/16 11:30 11/27/16 14:13 (Levaquin 750 Mg Premix Inj) 150 ml @ 100 mls/hr Q24H IV 11/24/16 12:00 11/27/16 11:51 Methylprednisolone Sodium Succinate 60 mg 60 mg Q6HR IV PUSH 11/24/16 12:00 11/27/16 11:51 Potassium Chloride 100 ml @ 50 mls/hr Q2H PRN IV 11/24/16 11:45 (KCl 20 Meq Premix Inj) 100 ml @ 50 mls/hr Q2H PRN IV 11/24/16 11:45 Potassium Bicarb/ Potassium Chloride 50 meq 50 meq UNSCH PRN PO 11/24/16 11:45 Potassium Chloride 100 ml @ 25 mls/hr UNSCH PRN IV 11/24/16 11:45 Potassium Chloride 100 ml @ 50 mls/hr Q2H PRN IV 11/24/16 11:45 (Magnesium Sulfate Inj/NS Inj) 100 ml @ 50 mls/hr UNSCH PRN IV 11/24/16 11:45 Magnesium Oxide 800 mg 800 mg UNSCH PRN PO 11/24/16 11:45 (Magnesium Sulfate Inj/NS Inj) 100 ml @ 50 mls/hr UNSCH PRN IV 11/24/16 11:45 Potassium Phosphate 2000 mg 2,000 mg Q4H PRN PO 11/24/16 11:45 (Sodium Phosphate Inj/NS 250 ml Inj) 250 ml @ 42 mls/hr UNSCH PRN IV 11/24/16 11:45 Potassium Phosphate 2000 mg 2,000 mg UNSCH PRN PO/TUBE 11/24/16 11:45 Potassium Phosphate 30 mmol/ Sodium Chloride 260 ml @ 42 mls/hr UNSCH PRN IV 11/24/16 11:45 Midazolam HCl 100 ml @ 0 mls/hr TITRATE IV 11/25/16 00:00 11/27/16 11:51 Dexmedetomidine HCl 200 mcg/ Sodium Chloride 52 ml @ 0 mls/hr TITRATE IV 11/25/16 09:45 11/25/16 10:28 (Heparin-D5W Inj) 250 ml @ 0 mls/hr TITRATE IV 11/25/16 19:30 11/27/16 01:12 (Heparin Inj) 5,000 units UNSCH PRN IV 11/25/16 19:30 (Heparin Inj) 2,500 units UNSCH PRN IV 11/25/16 19:30 Aspirin 325 mg 325 mg DAILY PO 11/26/16 09:00 11/27/16 09:22 (fentaNYL DRIP) 250 ml @ 0 mls/hr TITRATE IV 11/26/16 10:30 11/26/16 11:55 (Buspar) 10 mg BID PO 11/26/16 21:00 11/27/16 09:22 (Robitussin Ac 200-20 Mg/10 ml Liq) 5 ml Q6H PRN PO 11/26/16 10:30 (Spiriva Inh) 18 mcg DAILY INH 11/27/16 09:00 (Beneprotein Powder) 1 pack TID G-TUBE 11/27/16 13:00 11/27/16 13:02 (Coreg) 3.125 mg Q12H PO 11/27/16 13:00 11/27/16 13:01 (Lipitor) 20 mg HS PO 11/27/16 21:00 (Habitrol 14 Mg Patch.24 Hr) 1 patch DAILY TOPICAL 11/27/16 15:00 11/27/16 15:09 Miscellaneous Information 1 HS T-DERMAL 11/27/16 21:00 Vital Signs / I&O Vital Signs Date Time Temp Pulse Resp B/P Pulse Ox O2 Delivery O2 Flow Rate FiO2 11/27/16 16:00 35 11/27/16 16:00 58 11/27/16 15:58 98 35 11/27/16 14:00 60 11/27/16 12:28 99 35 11/27/16 12:00 35 11/27/16 12:00 67 11/27/16 12:00 98.7 62 10 132/73 99 11/27/16 10:00 63 11/27/16 08:18 99 35 11/27/16 08:00 98.6 86 17 121/73 100 11/27/16 08:00 35 11/27/16 08:00 64 11/27/16 07:00 100 Mechanical Ventilator 3.00 35 11/27/16 06:00 72 11/27/16 04:12 100 35 11/27/16 04:00 35 11/27/16 04:00 99.1 84 12 112/58 100 11/27/16 04:00 84 11/27/16 02:00 76 11/27/16 01:15 100 35 11/27/16 00:00 35 11/27/16 00:00 96.5 68 12 103/56 100 11/27/16 00:00 68 11/26/16 22:15 100 35 11/26/16 22:00 77 11/26/16 20:08 100 35 11/26/16 20:00 35 11/26/16 20:00 75 11/26/16 20:00 97.8 76 13 115/62 100 11/26/16 19:00 100 Mechanical Ventilator 35 11/26/16 18:00 83 I/O 11/26/16 11/26/16 11/26/16 11/27/16 11/27/16 11/27/16 07:00 15:00 23:00 07:00 15:00 23:00 Intake Total 750 ml 827 ml 1395 ml 1005 ml 932 ml Output Total 500 ml 300 ml 140 ml 185 ml 250 ml Balance 250 ml 527 ml 1255 ml 820 ml 682 ml Intake Oral 0 ml 0 ml 0 ml IV Total 600 ml 797 ml 1395 ml 1005 ml 932 ml Tube Irrigant 150 ml 30 ml 0 ml Output Urine Total 500 ml 250 ml 140 ml 185 ml 250 ml Gastric Drainage Total 50 ml 0 ml # Bowel Movements 0 0 0 0 Physical Exam GENERAL: Intubated, on the vent, sedated SKIN: Warm and dry. HEAD: Normocephalic. EYES: No scleral icterus. No injection or drainage. NECK: Supple, trachea midline. No JVD or lymphadenopathy. CARDIOVASCULAR: Regular rate and rhythm without murmurs, gallops, or rubs. RESPIRATORY: Breath sounds equal bilaterally. No accessory muscle use. GASTROINTESTINAL: Abdomen soft, non-tender, nondistended. MUSCULOSKELETAL: No cyanosis, or edema. Laboratory Laboratory Tests Test 11/26/16 11/27/16 11/27/16 11/27/16 19:28 03:45 03:52 11:30 Activated Partial 45.8 SEC 41.1 SEC 49.9 SEC Thromboplast Time White Blood Count 9.8 TH/MM3 Red Blood Count 3.75 MIL/MM3 Hemoglobin 11.7 GM/DL Hematocrit 35.8 % Mean Corpuscular Volume 95.5 FL Mean Corpuscular Hemoglobin 31.3 PG Mean Corpuscular Hemoglobin 32.8 % Concent Red Cell Distribution Width 14.3 % Platelet Count 180 TH/MM3 Mean Platelet Volume 9.0 FL Neutrophils (%) (Auto) 91.4 % Lymphocytes (%) (Auto) 4.1 % Monocytes (%) (Auto) 4.4 % Eosinophils (%) (Auto) 0.0 % Basophils (%) (Auto) 0.1 % Neutrophils # (Auto) 8.9 TH/MM3 Lymphocytes # (Auto) 0.4 TH/MM3 Monocytes # (Auto) 0.4 TH/MM3 Eosinophils # (Auto) 0.0 TH/MM3 Basophils # (Auto) 0.0 TH/MM3 CBC Comment AUTO DIFF Differential Comment AUTO DIFF CONFIRMED Sodium Level 143 MEQ/L Potassium Level 4.1 MEQ/L Chloride Level 111 MEQ/L Carbon Dioxide Level 26.4 MEQ/L Anion Gap 6 MEQ/L Blood Urea Nitrogen 20 MG/DL Creatinine 0.46 MG/DL Estimat Glomerular Filtration 137 ML/MIN Rate Random Glucose 124 MG/DL Calcium Level 8.6 MG/DL Magnesium Level 2.3 MG/DL Total Bilirubin 0.3 MG/DL Aspartate Amino Transf 25 U/L (AST/SGOT) Alanine Aminotransferase 31 U/L (ALT/SGPT) Alkaline Phosphatase 49 U/L B-Type Natriuretic Peptide 363 PG/ML Total Protein 5.8 GM/DL Albumin 2.7 GM/DL Imaging Last Impressions Chest X-Ray 11/27/16 0600 Signed Impressions: Service Date/Time: Sunday, November 27, 2016 04:25 - CONCLUSION: Nasogastric tube non-place with the tip below the field of view of the radiograph. Kermit Veliz MD Assessment and Plan Problem List: (1) Acute respiratory failure (2) COPD (chronic obstructive pulmonary disease) (3) Tobacco abuse (4) Hypertension (5) Cardiomyopathy Assessment and Plan Continue ICU care. Wean vent as tolerated. She had cath within the last 2 years in [place], will obtain the results. Dr. Barnard is her swage tender. She will likely need nuclear ST once extubated and stable. D/w pt's son. Problem Qualifiers (1) Acute respiratory failure: Qualified Code: J96.02 - Acute respiratory failure with hypercapnia Pearl Lind MD Nov 27, 2016 18:00
[2016-11-27] MEDS: fentaNYL DRIP 250 ML IV SCH (19:39)
[2016-11-27] MEDS: ATORVASTATIN 20 MG TAB PO SCH (20:24)
[2016-11-27] MEDS: REMOVE OLD PATCH T-DERMAL SCH (21:00)
[2016-11-28] VITALS (19 sets, daily range): BP systolic 114–171; BP diastolic 65–87; PULSE 52–134; RESP 10–30; TEMP 97.7–98.8; O2SAT 93–100
[2016-11-28] MEDS: RESP: ALBUTEROL 2.5 MG/IPRATROPIUM 0.5 MG NEB (SCH) NEB ×6 (00:10→19:23)
[2016-11-28] MEDS: CARVEDILOL 3.125 MG TAB PO SCH ×2 (01:00→13:00)
[2016-11-28] MEDS: methylPREDNISolone SOD SUCC 125 MG/2 ML VIAL IV PUSH SCH ×4 (01:13→18:03)
[2016-11-28] MEDS: PROPOFOL 1000 MG/100 ML INJ 100 ML IV SCH (04:11)
[2016-11-28] MEDS: CHLORHEXIDINE GLUCONATE 2 % 1 PACK (2 CLOTHS) TOP SCH (05:44)
[2016-11-28] MEDS ORDERED: SODIUM BICARBONATE 8.4% INJ 50 MEQ/50 ML SYR IV ONE (06:15)
[2016-11-28 06:24] LABS: HDL CHOLESTEROL 51.2 MG/DL (40.0-60.0)
[2016-11-28 07:25] LABS: APTT (PATIENT) 51.6 SEC (24.3-30.1)
[2016-11-28] MEDS: HEPARIN 25,000 UNITS-D5W 250 ML - PREMIX IV SCH (07:32)
[2016-11-28] MEDS: CHLORHEXIDINE 0.12% (ORAL KIT) 15 ML CUP MT SCH ×2 (08:00→20:00)
[2016-11-28] MEDS: TIOTROPIUM BROMIDE 18 MCG INH INH SCH (08:10)
[2016-11-28] MEDS: BENEPROTEIN POWDER 1 PACK G-TUBE SCH ×3 (09:52→18:00)
[2016-11-28] MEDS: FAMOTIDINE 20 MG/2 ML VIAL IV PUSH SCH ×2 (09:52→20:55)
[2016-11-28] MEDS: SODIUM CHLOR 0.9% 1000 ML INJ 1,000 ML IV SCH (09:52)
[2016-11-28] MEDS: ASPIRIN 325 MG TAB PO SCH (09:53)
[2016-11-28] MEDS: NICOTINE 14 MG/24 HR PATCH TOPICAL SCH (09:53)
[2016-11-28] MEDS: busPIRone HCL 10 MG TAB PO SCH ×2 (09:53→21:04)
--- NOTE | 2016-11-28 10:10 | HHI.CCPN ---
Subjective Remarks/Hospital Course Patient is a 60-year-old female with past medical history of COPD, hypertension , tobacco abuse. Apparently patient called EMS for increasing shortness of breath and COPD exacerbation. EMS gave her back to back breathing treatments but due to impending respiratory failure patient was intubated. Patient received 2 mg of Ativan and 20 mg of etomidate for sedation and for intubation. In the ER patient was given IV Solu-Medrol and breathing treatments. Chest x- ray was unremarkable. CT pulmonary angiogram did not show any pulmonary embolism or pneumonia shortly chronic scarring. Patient was transferred to [facility] from [place] [facility] I evaluated the patient in the ICU. She is intubated sedated has bilateral wheezing on exam. is at the bedside, confirms ongoing smoking history and history of COPD. No previous intubations. I have placed her on scheduled IV Solu-Medrol, scheduled DuoNeb and IV Levaquin. Sputum culture is ordered SUBJ 11/25: Remains intubated on sedation lightening patient is alert awake but becomes very agitated. Bilateral wheezing and respiratory distress on CPAP trial, patient was re-sedated due to respiratory distress and agitation 11/26: Failed extubation trial yesterday. Developed severe shortness of breath and respiratory distress and was reintubated. Today has bilateral inspiratory and expiratory wheezing. Will not attempt vent weaning today 11/27: Remains intubated. Continues to have bilateral wheezing. 2D Echo: The LV systolic function is hbupbhkf-xy-tennywvq reduced with an estimated EF 35-40% . Severe anterior and apical hypokinesis. Echo consistent with ischemic cardiomyopathy. Further cardiac workup once extubated-Dr. Lind 11/28: Remains intubated, heavily sedated for ventilator synchrony. Lateral wheezing appears to have improved. And was air trapping yesterday for that reason ventilatory rate was reduced to 10. Objective Vital Signs Date Time Temp Pulse Resp B/P Pulse Ox O2 Delivery O2 Flow Rate FiO2 11/28/16 07:50 100 35 11/28/16 06:00 58 11/28/16 04:00 98.1 10 122/71 11/27/16 19:00 Mechanical Ventilator 11/27/16 07:00 3.00 Intake and Output 11/27/16 11/27/16 11/27/16 07:59 15:59 23:59 Intake Total 1005 ml 932 ml 1027 ml Output Total 185 ml 250 ml 200 ml Balance 820 ml 682 ml 827 ml Result Diagram: 11/27/16 0352 11/27/16 0352 Other Results Microbiology Date/Time Procedure Status Source Growth 11/25/16 18:15 Gram Stain - Final Complete Sputum Endotracheal 11/25/16 18:15 Sputum Culture - Final Complete Sputum Endotracheal HEAVY GROWTH NORMAL RESPIRATORY [facility] Imaging CT pulmonary angiogram negative for PE. Chronic scarring Objective Remarks GENERAL: Intubated, becomes agitated on sedation lightening SKIN: Warm and dry. No cyanosis or pallor HEAD: Atraumatic. Normocephalic. EYES: Pupils equal and round. ENT: Orotracheally intubated NECK: Trachea midline. No JVD. CARDIOVASCULAR: S1-S2 normal no murmurs RESPIRATORY: Intubated, equal bilateral air entry. Bilateral expiratory wheezes and coarse rhonchi has improved in the interim GASTROINTESTINAL: Abdomen soft, non-tender, nondistended. Hepatic and splenic margins not palpable. Well-healed abdominal scars MUSCULOSKELETAL: Extremities without clubbing, cyanosis, or edema. No obvious deformities. NEUROLOGICAL: Intubated sedated with propofol, versed. Purposefully moves all extremities Urinary Catheter: Yes Assessment to: Continue A/P Assessment and Plan NEURO: - Propofol, Versed and fentanyl for sedation and ventilator synchrony - Start Precedex to facilitate weaning trial - Apparently takes Tylenol 3 at home. - Daily sedation vacation if patient can tolerate RESP: Acute COPD exacerbation Acute hypercapnic respiratory failure - PRVC vent support, improving wheezing. SBT today - Patient was extubated 11/25/16 but, due to respiratory distress was reintubated same day - Solu-medrol 60 mg IV q6h - DuoNeb every 4 hours scheduled and when necessary - Empiric Levaquin - F/U sputum culture-negative - Tobacco cessation CV: Ischemic cardiomyopathy Elevated troponin - Normal saline IV fluids 75 ml per hour-DC. Q Bumex 1 mg 1 - LV systolic function is moderately reduced with an estimated EF 35-40%. Severe anterior and apical hypokinesis. - Further cardiac workup once extubated, get previous cardiac catheterization report - Coreg 3.125 mg twice a day - Continue aspirin. Check lipid profile start Lipitor. Discontinue IV heparin - Chest x-ray did not show any evidence of heart failure GI: - Jevity. IV Protonix 40 mg daily - Bowel regimen : - Monitor renal function closely. Méndez catheter. ID: - F/U sputum culture-negative. Empiric Levaquin HEME: - Monitor CBC, CMP ENDO: Hypokalemia - Electrolyte Replacement per protocol PROPH: - Bilateral lower extremity SCDs. Lovenox 40 mg daily, protonix IV LINES: - Utilize peripheral IVs, central line if needed CC time 35 min Continues to be critically ill with respiratory failure and COPD exacerbation with bilateral wheezing. Failed extubation 11/25 almost immediately due to severe COPD. now with elevated troponin and ischemic heart disease. Will attend SBT again Kaylene Hill MD Nov 28, 2016 10:10
[2016-11-28] MEDS ORDERED: BUMETANIDE INJ 1 MG/4 ML VIAL IV PUSH ONE (10:15)
[2016-11-28] MEDS: DEXMEDETOMIDINE INJ 200 MCG in SODIUM CHLORIDE 0.9% INJ 50 ML IV SCH ×2 (10:46→14:51)
[2016-11-28] MEDS: ENOXAPARIN SODIUM 40 MG/0.4 ML SYRINGE SQ SCH (10:47)
[2016-11-28] MEDS: LEVOFLOXACIN 750 MG PREMIX INJ 150 ML IV SCH (11:57)
[2016-11-28] MEDS: RESP: ALBUTEROL 2.5 MG/3 ML NEB (PRN) INH ×3 (13:05→22:32)
[2016-11-28 13:23] LABS: BLOOD GAS BASE EXCESS 2.8 mmol/L (-2-2); BLOOD GAS CARBOXYHEMOGLOBIN 0.8 % (0-4); BLOOD GAS HCO3 27 mmol/L (22-26); BLOOD GAS METHEMOGLOBIN 0.9 % (0-2); BLOOD GAS O2 HGB SATURATION 94 % (90-100); BLOOD GAS OXYGEN CONTENT 15.6 Vol % (12.0-20.0); BLOOD GAS PCO2 46 mmHg (38-42); BLOOD GAS PO2 86 mmHg (61-120); BLOOD GAS TOTAL HGB 11.7 G/DL (12.0-16.0); CRITICAL VALUE NO; DRAW SITE LT RADIAL; FIO2 35 %; NUMBER OF ARTERIAL PUNCTURES 1; OXYGEN DEVICE VENTILATOR; STAT NO; TEMP CORR TO 98.6; ULNAR PULSE PRESENT; VENT SETTINGS CPAP/PS5/PEEP5
[2016-11-28 13:53] LABS: BLOOD GAS BASE EXCESS 2.8 mmol/L (-2-2); BLOOD GAS CARBOXYHEMOGLOBIN 0.7 % (0-4); BLOOD GAS HCO3 27 mmol/L (22-26); BLOOD GAS METHEMOGLOBIN 0.8 % (0-2); BLOOD GAS O2 HGB SATURATION 96 % (90-100); BLOOD GAS OXYGEN CONTENT 15.9 Vol % (12.0-20.0); BLOOD GAS PCO2 46 mmHg (38-42); BLOOD GAS PO2 80 mmHg (61-120); BLOOD GAS TOTAL HGB 11.8 G/DL (12.0-16.0); CRITICAL VALUE NO; DRAW SITE RT RADIAL; LITER FLOW 3 L/M; NUMBER OF ARTERIAL PUNCTURES 1; OXYGEN DEVICE NASAL CANNULA; STAT NO; TEMP CORR TO 98.6; ULNAR PULSE PRESENT
[2016-11-28] MEDS ORDERED: DEXMEDETOMIDINE HCL 200 MCG/2 ML VIAL ONE (14:46)
[2016-11-28] MEDS: fentaNYL DRIP 250 ML IV SCH (14:51)
--- NOTE | 2016-11-28 16:58 | HHI.CCPN ---
Subjective Remarks/Hospital Course Patient is a 60-year-old female with past medical history of COPD, hypertension , tobacco abuse. Apparently patient called EMS for increasing shortness of breath and COPD exacerbation. EMS gave her back to back breathing treatments but due to impending respiratory failure patient was intubated. Patient received 2 mg of Ativan and 20 mg of etomidate for sedation and for intubation. In the ER patient was given IV Solu-Medrol and breathing treatments. Chest x- ray was unremarkable. CT pulmonary angiogram did not show any pulmonary embolism or pneumonia shortly chronic scarring. Patient was transferred to [facility] from [place] [facility] I evaluated the patient in the ICU. She is intubated sedated has bilateral wheezing on exam. is at the bedside, confirms ongoing smoking history and history of COPD. No previous intubations. I have placed her on scheduled IV Solu-Medrol, scheduled DuoNeb and IV Levaquin. Sputum culture is ordered SUBJ 11/25: Remains intubated on sedation lightening patient is alert awake but becomes very agitated. Bilateral wheezing and respiratory distress on CPAP trial, patient was re-sedated due to respiratory distress and agitation 11/26: Failed extubation trial yesterday. Developed severe shortness of breath and respiratory distress and was reintubated. Today has bilateral inspiratory and expiratory wheezing. Will not attempt vent weaning today 11/27: Remains intubated. Continues to have bilateral wheezing. 2D Echo: The LV systolic function is slcrygdw-cg-uoopinox reduced with an estimated EF 35-40% . Severe anterior and apical hypokinesis. Echo consistent with ischemic cardiomyopathy. Further cardiac workup once extubated-Dr. Lind 11/28: Remains intubated, heavily sedated for ventilator synchrony. Lateral wheezing appears to have improved. And was air trapping yesterday for that reason ventilatory rate was reduced to 10. 11/28 (1645 hours): Patient was extubated about 45 mins ago after meeting acceptable weaning parameters. Nurse reported increased work of breathing and I went to examine the patient. She is clearly labored with severe bronchospasm and poor air flow. I stated to 3 family members in attendance that she was doing poorly and would probably need to be re-intubated. One stated that her oxygen saturation was 100% and that she did not need intubation. I explained about CO2 retention and respiratory failure. I explained that she has advanced COPD which may be exacerbated by bronchitis or heart failure. I explained that her ejection fraction is 35% and they expressed anger that no one had explained this to them. I stated quite simply that her pulmonary function was not adequate and that we need to support her somehow. They want BiPAP. Family states she is too sedated, we will reduce medication. I will comply with there requests. Steroids have been ordered IV q6h. Will add lasix now. Bronchodilators continued. Objective Vital Signs Date Time Temp Pulse Resp B/P Pulse Ox O2 Delivery O2 Flow Rate FiO2 11/28/16 14:00 69 11/28/16 13:00 99 Nasal Cannula 3 11/28/16 12:00 35 11/28/16 12:00 98.8 13 153/84 Intake and Output 11/27/16 11/27/16 11/28/16 08:00 16:00 00:00 Intake Total 1005 ml 932 ml 1027 ml Output Total 185 ml 250 ml 200.0 ml Balance 820 ml 682 ml 827.0 ml Result Diagram: 11/27/16 0352 11/27/16 0352 Other Results Microbiology Date/Time Procedure Status Source Growth 11/25/16 18:15 Gram Stain - Final Complete Sputum Endotracheal 11/25/16 18:15 Sputum Culture - Final Complete Sputum Endotracheal HEAVY GROWTH NORMAL RESPIRATORY [facility] Laboratory Tests Test 11/28/16 11/28/16 12:39 13:36 Blood Gas Puncture Site LT RADIAL RT RADIAL Blood Gas Patient Temperature 98.6 98.6 Blood Gas HCO3 27 mmol/L 27 mmol/L (22-26) (22-26) Blood Gas Base Excess 2.8 mmol/L 2.8 mmol/L (-2-2) (-2-2) Blood Gas Oxygen Saturation 94 % (90-100) 96 % (90-100) Arterial Blood pH 7.39 7.39 (7.380-7.420) (7.380-7.420) Arterial Blood Partial 46 mmHg (38-42) 46 mmHg (38-42) Pressure CO2 Arterial Blood Partial 86 mmHg 80 mmHg Pressure O2 (61-120) (61-120) Arterial Blood Oxygen Content 15.6 Vol % 15.9 Vol % (12.0-20.0) (12.0-20.0) Arterial Blood 0.8 % (0-4) 0.7 % (0-4) Carboxyhemoglobin Arterial Blood Methemoglobin 0.9 % (0-2) 0.8 % (0-2) Blood Gas Hemoglobin 11.7 G/DL 11.8 G/DL (12.0-16.0) (12.0-16.0) Oxygen Delivery Device VENTILATOR NASAL CANNULA Blood Gas Ventilator Setting CPAP/PS5/PEEP5 Blood Gas Inspired Oxygen 35 % Blood Gas Liter Flow 3 L/M Imaging CT pulmonary angiogram negative for PE. Chronic scarring Objective Remarks GENERAL: Intubated, becomes agitated when sedation lightened. SKIN: Warm and dry. No cyanosis or pallor HEAD: Atraumatic. Normocephalic. EYES: Pupils equal and round. ENT: Clear. NECK: Trachea midline. + JVD. CARDIOVASCULAR: S1-S2 normal no murmurs RESPIRATORY: Bilateral expiratory wheezes and coarse rhonchi. Labored. GASTROINTESTINAL: Abdomen soft, non-tender, nondistended. MUSCULOSKELETAL: Extremities without clubbing, cyanosis, or edema. No obvious deformities. NEUROLOGICAL: Purposefully moves all extremities. Exhausted. A/P Assessment and Plan NEURO: - Propofol, Versed and fentanyl for sedation and ventilator synchrony - Start Precedex to facilitate weaning trial - Apparently takes Tylenol 3 at home. RESP: Acute COPD exacerbation Acute hypercapnic respiratory failure - PRVC vent support, improving wheezing. SBT today - Patient was extubated 11/25/16 but, due to respiratory distress was reintubated same day - Solu-medrol 60 mg IV q6h - DuoNeb every 4 hours scheduled and when necessary - Empiric Levaquin - F/U sputum culture-negative - Tobacco cessation CV: Ischemic cardiomyopathy Elevated troponin - Normal saline IV fluids 75 ml per hour-DC. Q Bumex 1 mg 1 - LV systolic function is moderately reduced with an estimated EF 35-40%. Severe anterior and apical hypokinesis. - Further cardiac workup once extubated, get previous cardiac catheterization report - Coreg 3.125 mg twice a day - Continue aspirin. Check lipid profile start Lipitor. Discontinue IV heparin - Chest x-ray did not show any evidence of heart failure GI: - Jevity. IV Protonix 40 mg daily - Bowel regimen : - Monitor renal function closely. Méndez catheter. ID: - F/U sputum culture-negative. Empiric Levaquin HEME: - Monitor CBC, CMP ENDO: Hypokalemia - Electrolyte Replacement per protocol PROPH: - Bilateral lower extremity SCDs. Lovenox 40 mg daily, protonix IV LINES: - Utilize peripheral IVs, central line if needed Overall impression: Continues to be critically ill with respiratory failure and COPD exacerbation with bilateral wheezing. Failed extubation 11/25 almost immediately due to severe COPD. now with elevated troponin and ischemic heart disease. Extubated earlier but has clearly failed. Family wants BiPAP. Critical care 50 mins Peter Garnica MD Nov 28, 2016 16:58 Peter Garnica MD Nov 28, 2016 16:58
[2016-11-28] MEDS ORDERED: FUROSEMIDE 40 MG/4 ML VIAL IV PUSH SCH (17:15)
[2016-11-28] MEDS: MORPHINE SULFATE 4 MG/ML INJ IV PUSH PRN (20:55)
[2016-11-28] MEDS: ATORVASTATIN 20 MG TAB PO SCH (21:04)
[2016-11-28] MEDS ORDERED: DILTIAZEM HCL 25 MG/5 ML VIAL IVP ONE (22:30)
[2016-11-28] MEDS: DILTIAZEM INJ 125 MG in SODIUM CHLORIDE 0.9% INJ 100 ML IV SCH (23:06)
[2016-11-28] MEDS: REMOVE OLD PATCH T-DERMAL SCH (23:15)
[2016-11-29] VITALS (15 sets, daily range): BP systolic 112–149; BP diastolic 61–92; PULSE 80–114; RESP 14–28; TEMP 97.6–99.3; O2SAT 92–98
[2016-11-29] MEDS: methylPREDNISolone SOD SUCC 125 MG/2 ML VIAL IV PUSH SCH ×4 (00:07→18:06)
[2016-11-29] MEDS: MORPHINE SULFATE 4 MG/ML INJ IV PUSH PRN ×4 (00:31→23:10)
[2016-11-29] MEDS: RESP: ALBUTEROL 2.5 MG/IPRATROPIUM 0.5 MG NEB (SCH) NEB ×6 (01:15→19:30)
[2016-11-29] MEDS: CARVEDILOL 3.125 MG TAB PO SCH (02:00)
[2016-11-29] MEDS: DILTIAZEM INJ 125 MG in SODIUM CHLORIDE 0.9% INJ 100 ML IV SCH (03:52)
[2016-11-29] MEDS: CHLORHEXIDINE GLUCONATE 2 % 1 PACK (2 CLOTHS) TOP SCH (04:43)
[2016-11-29 07:04] LABS: ALKALINE PHOSPHATASE 56 U/L (45-117); ALT (GPT) 58 U/L (10-53); ANION GAP 7 MEQ/L (5-15); AST (GOT) 63 U/L (15-37); BICARBONATE 30.6 MEQ/L (21.0-32.0); BLOOD UREA NITROGEN 25 MG/DL (7-18); CHLORIDE 103 MEQ/L (98-107); GLOMERULAR FILTRATION RATE 114 ML/MIN (>89); MAGNESIUM 2.2 MG/DL (1.5-2.5); POTASSIUM 3.6 MEQ/L (3.5-5.1); SODIUM (NA) 141 MEQ/L (136-145); TOTAL BILIRUBIN ADULT 0.5 MG/DL (0.2-1.0)
[2016-11-29 07:06] LABS: APTT (PATIENT) 22.5 SEC (24.3-30.1)
[2016-11-29] MEDS ORDERED: methylPREDNISolone SOD SUCC 125 MG/2 ML VIAL IV PUSH ONE (07:45)
--- NOTE | 2016-11-29 07:47 | HHI.CCPN ---
Subjective Remarks/Hospital Course Patient is a 60-year-old female with past medical history of COPD, hypertension , tobacco abuse. Apparently patient called EMS for increasing shortness of breath and COPD exacerbation. EMS gave her back to back breathing treatments but due to impending respiratory failure patient was intubated. Patient received 2 mg of Ativan and 20 mg of etomidate for sedation and for intubation. In the ER patient was given IV Solu-Medrol and breathing treatments. Chest x- ray was unremarkable. CT pulmonary angiogram did not show any pulmonary embolism or pneumonia shortly chronic scarring. Patient was transferred to [facility] from [place] [facility] I evaluated the patient in the ICU. She is intubated sedated has bilateral wheezing on exam. is at the bedside, confirms ongoing smoking history and history of COPD. No previous intubations. I have placed her on scheduled IV Solu-Medrol, scheduled DuoNeb and IV Levaquin. Sputum culture is ordered SUBJ 11/25: Remains intubated on sedation lightening patient is alert awake but becomes very agitated. Bilateral wheezing and respiratory distress on CPAP trial, patient was re-sedated due to respiratory distress and agitation 11/26: Failed extubation trial yesterday. Developed severe shortness of breath and respiratory distress and was reintubated. Today has bilateral inspiratory and expiratory wheezing. Will not attempt vent weaning today 11/27: Remains intubated. Continues to have bilateral wheezing. 2D Echo: The LV systolic function is [id number] reduced with an estimated EF 35-40% . Severe anterior and apical hypokinesis. Echo consistent with ischemic cardiomyopathy. Further cardiac workup once extubated-Dr. Lind 11/28: Remains intubated, heavily sedated for ventilator synchrony. Lateral wheezing appears to have improved. And was air trapping yesterday for that reason ventilatory rate was reduced to 10. 11/28 (1645 hours): Patient was extubated about 45 mins ago after meeting acceptable weaning parameters. Nurse reported increased work of breathing and I went to examine the patient. She is clearly labored with severe bronchospasm and poor air flow. I stated to 3 family members in attendance that she was doing poorly and would probably need to be re-intubated. One stated that her oxygen saturation was 100% and that she did not need intubation. I explained about CO2 retention and respiratory failure. I explained that she has advanced COPD which may be exacerbated by bronchitis or heart failure. I explained that her ejection fraction is 35% and they expressed anger that no one had explained this to them. I stated quite simply that her pulmonary function was not adequate and that we need to support her somehow. They want BiPAP. Family states she is too sedated, we will reduce medication. I will comply with there requests. Steroids have been ordered IV q6h. Will add lasix now. Bronchodilators continued. 11/29: Events from yesterday noted. Patient currently on high flow nasal cannula. Continues to have bilateral wheezing. Patient is agreeable for BiPAP. Will use BiPAP with intermittent breaks. Objective Vital Signs Date Time Temp Pulse Resp B/P Pulse Ox O2 Delivery O2 Flow Rate FiO2 11/29/16 06:00 90 11/29/16 05:00 92 High Flow Nasal Cannula 20.00 55 11/29/16 04:00 98.8 19 112/61 Intake and Output 11/28/16 11/28/16 11/29/16 08:00 16:00 00:00 Intake Total 1133 ml 1000 ml Output Total 400 ml 1400 ml 1700 ml Balance 733 ml -400 ml -1700 ml Result Diagram: 11/27/16 0352 11/29/16 0523 Other Results Laboratory Tests Test 11/28/16 11/28/16 12:39 13:36 Blood Gas Puncture Site LT RADIAL RT RADIAL Blood Gas Patient Temperature 98.6 98.6 Blood Gas HCO3 27 mmol/L 27 mmol/L (22-26) (22-26) Blood Gas Base Excess 2.8 mmol/L 2.8 mmol/L (-2-2) (-2-2) Blood Gas Oxygen Saturation 94 % (90-100) 96 % (90-100) Arterial Blood pH 7.39 7.39 (7.380-7.420) (7.380-7.420) Arterial Blood Partial 46 mmHg (38-42) 46 mmHg (38-42) Pressure CO2 Arterial Blood Partial 86 mmHg 80 mmHg Pressure O2 (61-120) (61-120) Arterial Blood Oxygen Content 15.6 Vol % 15.9 Vol % (12.0-20.0) (12.0-20.0) Arterial Blood 0.8 % (0-4) 0.7 % (0-4) Carboxyhemoglobin Arterial Blood Methemoglobin 0.9 % (0-2) 0.8 % (0-2) Blood Gas Hemoglobin 11.7 G/DL 11.8 G/DL (12.0-16.0) (12.0-16.0) Oxygen Delivery Device VENTILATOR NASAL CANNULA Blood Gas Ventilator Setting CPAP/PS5/PEEP5 Blood Gas Inspired Oxygen 35 % Blood Gas Liter Flow 3 L/M Imaging CT pulmonary angiogram negative for PE. Chronic scarring Objective Remarks GENERAL: Alert awake. In moderate respiratory distress SKIN: Warm and dry. HEAD: Atraumatic. Normocephalic. EYES: Pupils equal and round. ENT: Clear. Edentulous NECK: Trachea midline. + JVD. CARDIOVASCULAR: S1-S2 normal no murmurs RESPIRATORY: Bilateral expiratory wheezes and coarse rhonchi. Labored breathing , using accessory muscle GASTROINTESTINAL: Abdomen soft, non-tender, nondistended. MUSCULOSKELETAL: Extremities without clubbing, cyanosis, or edema. No obvious deformities. NEUROLOGICAL: Purposefully moves all extremities. Oriented, alert Urinary Catheter: Yes Assessment to: Continue A/P Assessment and Plan NEURO: - Use Precedex as needed for anxiety - Use when necessary Ativan and morphine for anxiety and shortness of breath - Apparently takes Tylenol 3 at home. RESP: Acute COPD exacerbation Acute hypercapnic respiratory failure - Patient was extubated 11/25/16 but, due to respiratory distress was reintubated same day. Now extubated again 11/29 - Solu-Medrol 60 mg IV q6h. Give additional 100 mg IV x1 - DuoNeb every 4 hours scheduled and when necessary - Start Symbicort, Spiriva. Consult pulmonology - Empiric Levaquin - F/U sputum culture-negative - Tobacco cessation CV: Ischemic cardiomyopathy Elevated troponin/NSTEMI Compensated systolic heart failure Sinus tachycardia - IV Lasix 20 mg every 8 hours. LV systolic function moderately reduced EF 35-40 %. Severe anterior and apical hypokinesis. - Further cardiac workup once extubated, get previous cardiac catheterization report - Coreg 3.125 mg twice a day-hold due to sever wheezing. Continue Cardizem infusion - Continue aspirin, Lipitor. Discontinued IV heparin-placed on prophylactic Lovenox - Chest x-ray did not show any evidence of heart failure GI: - Keep NPO except ice chips. IV Protonix 40 mg daily - Bowel regimen : - Monitor renal function closely. Méndez catheter. ID: - F/U sputum culture-negative. Empiric Levaquin HEME: - Monitor CBC, CMP ENDO: Hypokalemia - Electrolyte Replacement per protocol PROPH: - Bilateral lower extremity SCDs. Lovenox 40 mg daily, Protonix IV LINES: - Utilize peripheral IVs, central line if needed Overall impression: Continues to be critically ill with respiratory failure and COPD exacerbation with bilateral wheezing. Failed extubation 11/25 almost immediately due to severe COPD and underlying cardiomyopathy. Updated at the bedside. I have expressed to him very clearly that patient may need reintubation, and due to NSTEMI not ideal to have additional stressors, like increased work of breathing tachypnea tachycardia and hypoxia Critical care 45 mins Kaylene Hill MD Nov 29, 2016 07:47
[2016-11-29] MEDS: CHLORHEXIDINE 0.12% (ORAL KIT) 15 ML CUP MT SCH ×2 (08:00→20:00)
[2016-11-29] MEDS: FAMOTIDINE 20 MG/2 ML VIAL IV PUSH SCH ×2 (08:13→21:22)
[2016-11-29] MEDS: FUROSEMIDE 40 MG/4 ML VIAL IV PUSH SCH ×2 (08:13→16:36)
[2016-11-29] MEDS: LORazepam 2 MG/ML VIAL IV PUSH PRN (08:13)
[2016-11-29] MEDS: NICOTINE 14 MG/24 HR PATCH TOPICAL SCH (08:14)
--- NOTE | 2016-11-29 08:21 | RADRPT ---
EXAM DATE/TIME: 11/29/2016 08:09 [facility] COMPARISON: CHEST SINGLE AP, November 27, 2016, 4:25. INDICATIONS : Respiratory distress. MEDICAL HISTORY : None. SURGICAL HISTORY : None. ENCOUNTER: Initial ACUITY: 1 day PAIN SCORE: 0/10 LOCATION: Bilateral chest FINDINGS: Very minimal parenchymal changes are present apex of the right lung. Left lung is clear. The heart a nd pulmonary vascularity are normal. The portion of the bony skeleton visualized is unremarkable. CONCLUSION: Minimal parenchymal changes apex of the right lung. Vijay Gusman MD FACR on November 29, 2016 at 8:17 Board Certified Radiologist. This report was verified electronically.
[2016-11-29] MEDS: TIOTROPIUM BROMIDE 18 MCG INH INH SCH ×2 (08:26→11:36)
[2016-11-29] MEDS: BENEPROTEIN POWDER 1 PACK G-TUBE SCH ×3 (08:26→18:00)
[2016-11-29] MEDS ORDERED: TIOTROPIUM BROMIDE 18 MCG INH INH SCH (09:00)
[2016-11-29] MEDS: POTASSIUM CHLORIDE 25 MEQ EFFERVESCENT TAB PO SCH (11:35)
[2016-11-29] MEDS: ASPIRIN 325 MG TAB PO SCH (11:36)
[2016-11-29] MEDS: busPIRone HCL 10 MG TAB PO SCH ×2 (11:36→21:22)
[2016-11-29] MEDS: BUDESONIDE-FORMOTEROL 160/4.5 MCG INHALER INH SCH ×2 (11:36→21:00)
[2016-11-29] MEDS: ENOXAPARIN SODIUM 40 MG/0.4 ML SYRINGE SQ SCH (11:37)
[2016-11-29] MEDS: LEVOFLOXACIN 750 MG PREMIX INJ 150 ML IV SCH (11:37)
--- NOTE | 2016-11-29 15:43 | EKG ---
Date Performed: 11/28/2016 Time Performed: 20:27:14 PTAGE: 61 years EKG: Sinus tachycardia with 1 couplet of PVCs. Short CA interval Small inferior Q waves of undet ermined significance Nonspecific ST-T change Abnormal ECG NO PREVIOUS TRACING DOCTOR: Brad Pope Interpretating Date/Time 11/29/2016 15:42:51
[2016-11-29] MEDS: RESP: ALBUTEROL 2.5 MG/3 ML NEB (PRN) INH (17:58)
[2016-11-29] MEDS: REMOVE OLD PATCH T-DERMAL SCH (21:00)
[2016-11-29] MEDS: ATORVASTATIN 20 MG TAB PO SCH (21:22)
[2016-11-30] VITALS (16 sets, daily range): BP systolic 130–159; BP diastolic 72–97; PULSE 83–107; RESP 10–32; TEMP 98.7–99.4; O2SAT 92–99
[2016-11-30] MEDS: methylPREDNISolone SOD SUCC 125 MG/2 ML VIAL IV PUSH SCH ×5 (00:30→22:54)
[2016-11-30] MEDS: FUROSEMIDE 40 MG/4 ML VIAL IV PUSH SCH ×2 (02:15→08:45)
[2016-11-30] MEDS: RESP: ALBUTEROL 2.5 MG/IPRATROPIUM 0.5 MG NEB (SCH) NEB ×7 (03:42→23:35)
[2016-11-30] MEDS: CHLORHEXIDINE GLUCONATE 2 % 1 PACK (2 CLOTHS) TOP SCH (04:00)
[2016-11-30 04:49] LABS: AUTOMATED NEUTROPHIL # 9.3 TH/MM3 (1.8-7.7); BASOPHIL % 0.2 % (0.0-2.0); HEMATOCRIT 37.8 % (35.0-46.0); LYMPHOCYTE # 0.5 TH/MM3 (1.0-4.8); MEAN CELL VOLUME 91.4 FL (80.0-100.0); MEAN CORPUSCULAR HEMOGLOBIN 31.9 PG (27.0-34.0); MEAN CORPUSCULAR HGB CONC 34.9 % (32.0-36.0); MONO % 7.8 % (0.0-8.0); PLATELET COUNT 173 TH/MM3 (150-450); RED BLOOD COUNT 4.14 MIL/MM3 (4.00-5.30); RED CELL DISTRIBUTION WIDTH 13.5 % (11.6-17.2); WHITE BLOOD COUNT 10.7 TH/MM3 (4.0-11.0)
[2016-11-30 05:09] LABS: HEMO FLAGS AUTO DIFF
[2016-11-30 05:16] LABS: ALT (GPT) 55 U/L (10-53); ANION GAP 7 MEQ/L (5-15); AST (GOT) 45 U/L (15-37); BICARBONATE 38.4 MEQ/L (21.0-32.0); BLOOD UREA NITROGEN 16 MG/DL (7-18); CHLORIDE 96 MEQ/L (98-107); GLOMERULAR FILTRATION RATE 114 ML/MIN (>89); MAGNESIUM 2.1 MG/DL (1.5-2.5); SODIUM (NA) 141 MEQ/L (136-145)
[2016-11-30 05:18] LABS: ALKALINE PHOSPHATASE 53 U/L (45-117); TOTAL BILIRUBIN ADULT 0.6 MG/DL (0.2-1.0)
[2016-11-30] MEDS: POTASSIUM CHLOR 20 MEQ PREMIX 100 ML IV PRN ×2 (05:34→22:54)
[2016-11-30] MEDS: POTASSIUM CHLORIDE 25 MEQ EFFERVESCENT TAB PO PRN (05:35)
--- NOTE | 2016-11-30 05:36 | RADRPT ---
EXAM DATE/TIME: 11/30/2016 04:12 [facility] COMPARISON: CHEST SINGLE AP, November 29, 2016, 8:09. INDICATIONS : Respiratory distress. MEDICAL HISTORY : None. SURGICAL HISTORY : None. ENCOUNTER: Subsequent ACUITY: 1 week PAIN SCORE: 0/10 LOCATION: Bilateral chest FINDINGS: A single view of the chest demonstrates the lungs to be symmetrically aerated without evidence of mas s, infiltrate or effusion. The cardiomediastinal contours are unremarkable. Osseous structures are intact. There are multiple overlying electrocardiogram leads and oxygen tubing. CONCLUSION: No acute disease. Huber Barkley MD on November 30, 2016 at 5:34 Board Certified Radiologist. This report was verified electronically.
[2016-11-30] MEDS: CHLORHEXIDINE 0.12% (ORAL KIT) 15 ML CUP MT SCH ×2 (08:00→20:00)
[2016-11-30 08:01] LABS: HYPERSEGMENTED POLYS 1+ (NORMAL); PLATELET ESTIMATE SMEAR NORMAL (NORMAL); PLATELET MORPHOLOGY NORMAL (NORMAL); SCAN/DIFF AUTO DIFF CONFIRMED
[2016-11-30] MEDS: NICOTINE 14 MG/24 HR PATCH TOPICAL SCH (08:43)
[2016-11-30] MEDS: POTASSIUM CHLORIDE 25 MEQ EFFERVESCENT TAB PO SCH (08:44)
[2016-11-30] MEDS: ASPIRIN 325 MG TAB PO SCH (08:45)
[2016-11-30] MEDS: busPIRone HCL 10 MG TAB PO SCH ×2 (08:45→20:01)
[2016-11-30] MEDS: BUDESONIDE-FORMOTEROL 160/4.5 MCG INHALER INH SCH ×3 (08:59→20:00)
[2016-11-30] MEDS: TIOTROPIUM BROMIDE 18 MCG INH INH SCH (08:59)
[2016-11-30] MEDS: PANTOPRAZOLE SOD 40 MG DELAYED RELEASE TAB PO SCH (09:00)
[2016-11-30] MEDS: BENEPROTEIN POWDER 1 PACK G-TUBE SCH ×3 (09:00→17:37)
--- NOTE | 2016-11-30 09:07 | HHI.CCPN ---
Subjective Remarks/Hospital Course Patient is a 60-year-old female with past medical history of COPD, hypertension , tobacco abuse. Apparently patient called EMS for increasing shortness of breath and COPD exacerbation. EMS gave her back to back breathing treatments but due to impending respiratory failure patient was intubated. Patient received 2 mg of Ativan and 20 mg of etomidate for sedation and for intubation. In the ER patient was given IV Solu-Medrol and breathing treatments. Chest x- ray was unremarkable. CT pulmonary angiogram did not show any pulmonary embolism or pneumonia shortly chronic scarring. Patient was transferred to [facility] from [place] ER I evaluated the patient in the ICU. She is intubated sedated has bilateral wheezing on exam. is at the bedside, confirms ongoing smoking history and history of COPD. No previous intubations. I have placed her on scheduled IV Solu-Medrol, scheduled DuoNeb and IV Levaquin. Sputum culture is ordered SUBJ 11/25: Remains intubated on sedation lightening patient is alert awake but becomes very agitated. Bilateral wheezing and respiratory distress on CPAP trial, patient was re-sedated due to respiratory distress and agitation 11/26: Failed extubation trial yesterday. Developed severe shortness of breath and respiratory distress and was reintubated. Today has bilateral inspiratory and expiratory wheezing. Will not attempt vent weaning today 11/27: Remains intubated. Continues to have bilateral wheezing. 2D Echo: The LV systolic function is opylbgrk-ln-fcngjgps reduced with an estimated EF 35-40% . Severe anterior and apical hypokinesis. Echo consistent with ischemic cardiomyopathy. Further cardiac workup once extubated-Dr. Lind 11/28: Remains intubated, heavily sedated for ventilator synchrony. Lateral wheezing appears to have improved. And was air trapping yesterday for that reason ventilatory rate was reduced to 10. 11/28 (1645 hours): Patient was extubated about 45 mins ago after meeting acceptable weaning parameters. Nurse reported increased work of breathing and I went to examine the patient. She is clearly labored with severe bronchospasm and poor air flow. I stated to 3 family members in attendance that she was doing poorly and would probably need to be re-intubated. One stated that her oxygen saturation was 100% and that she did not need intubation. I explained about CO2 retention and respiratory failure. I explained that she has advanced COPD which may be exacerbated by bronchitis or heart failure. I explained that her ejection fraction is 35% and they expressed anger that no one had explained this to them. I stated quite simply that her pulmonary function was not adequate and that we need to support her somehow. They want BiPAP. Family states she is too sedated, we will reduce medication. I will comply with there requests. Steroids have been ordered IV q6h. Will add lasix now. Bronchodilators continued. 11/29: Events from yesterday noted. Patient currently on high flow nasal cannula. Continues to have bilateral wheezing. Patient is agreeable for BiPAP. Will use BiPAP with intermittent breaks. 11/30: Respiratory status improving remains on high flow oxygen. Continues to have bilateral wheezing but improving. Will d/w Dr. Lind re: further cardiac work up. OOB today Objective Vital Signs Date Time Temp Pulse Resp B/P Pulse Ox O2 Delivery O2 Flow Rate FiO2 11/30/16 08:05 97 High Flow Nasal Cannula 15.00 35 11/30/16 04:00 99.3 97 19 159/91 Intake and Output 11/29/16 11/29/16 11/30/16 08:00 16:00 00:00 Intake Total 173 ml 330 ml 480 ml Output Total 650 ml 2850 ml 1350 ml Balance -477 ml -2520 ml -870 ml Result Diagram: 11/30/16 0353 11/30/[address] pulmonary angiogram negative for PE. Chronic scarring Objective Remarks GENERAL: Alert awake. Mild tachypnea SKIN: Warm and dry. HEAD: Atraumatic. Normocephalic. EYES: Pupils equal and round. ENT: Edentulous NECK: Trachea midline. + JVD. CARDIOVASCULAR: S1-S2 normal no murmurs RESPIRATORY: Bilateral inspiratory and expiratory wheezes and coarse rhonchi. Slightly tachypneic GASTROINTESTINAL: Abdomen soft, non-tender, nondistended. MUSCULOSKELETAL: Extremities without clubbing, cyanosis, or edema. NEUROLOGICAL: Alert and oriented. Motor and sensation grossly preserved A/P Assessment and Plan NEURO: - Use Ativan and morphine for anxiety and shortness of breath - Apparently takes Tylenol 3 at home. resume Tylenol #3 for pain RESP: Acute COPD exacerbation Acute hypercapnic respiratory failure - Patient was extubated 11/25/16 but, due to respiratory distress was reintubated same day. Now extubated again 11/28, initially tender was gradually improving now - Solu-Medrol 60 mg IV q6h. reduced dose from tomorrow - DuoNeb every 4 hours scheduled and when necessary - Symbicort, Spiriva. Consulted pulmonology - Empiric Levaquin - Sputum culture-negative - Tobacco cessation, NicoDerm patch CV: Ischemic cardiomyopathy Elevated troponin/NSTEMI Compensated systolic heart failure Sinus tachycardia - IV Lasix 20 mg every 8 hours. Change to lasix 20 mg po daily - LV systolic function moderately reduced EF 35-40%. Severe anterior and apical hypokinesis. - Will discuss with Dr. Marin further cardiac. Get previous cardiac catheterization report - Coreg 3.125 mg twice a day-holding due to sever wheezing, resume once resp status stabilizes. DCd Cardizem infusion - Chest x-ray did not show any evidence of heart failure GI: - Advance diet as tolerated. Protonix 40 mg po daily - Bowel regimen : - Monitor renal function closely. Méndez catheter. ID: - F/U sputum culture-negative. Empiric Levaquin for 7 days HEME: - Monitor CBC, CMP ENDO: Hypokalemia - Electrolyte Replacement per protocol PROPH: - Bilateral lower extremity SCDs. Lovenox 40 mg daily, Protonix po LINES: - Utilize peripheral IVs, central line if needed Overall impression: Showing signs of improvement but respiratory status remains tenuous. Continue ICU care for another 24 hours. Cardiac workup per Dr. Lind Level 3 Kaylene Hill MD Nov 30, 2016 09:07 Kaylene Hill MD Nov 30, 2016 09:07
[2016-11-30] MEDS: ENOXAPARIN SODIUM 40 MG/0.4 ML SYRINGE SQ SCH (10:48)
[2016-11-30] MEDS: LEVOFLOXACIN 750 MG PREMIX INJ 150 ML IV SCH (12:19)
--- NOTE | 2016-11-30 13:33 | PD.CARD.PN ---
Subjective Subjective Remarks Extubated, no angina or excessive dyspnea Objective Medications Current Medications Medications (Trade) Dose Ordered Sig/Jeniffer Route Start Time Stop Time Status Last Admin (Peridex 0.12% Liq) 15 ml BID@08,20 MT 11/24/16 20:00 11/28/16 08:00 Miscellaneous Information 1 Q361D XX 11/24/16 11:30 11/24/16 11:30 (Chlorhexidine 2% Cloth) Taper DAILY@04 TOP 11/25/16 04:00 11/21/17 03:59 11/29/16 04:43 Chlorhexidine Gluconate 3 pack 3 pack UNSCH PRN TOP 11/24/16 11:30 (Levaquin 750 Mg Premix Inj) 150 ml @ 100 mls/hr Q24H IV 11/24/16 12:00 11/30/16 12:19 Methylprednisolone Sodium Succinate 60 mg 60 mg Q6HR IV PUSH 11/24/16 12:00 11/30/16 12:19 Potassium Chloride 100 ml @ 50 mls/hr Q2H PRN IV 11/24/16 11:45 (KCl 20 Meq Premix Inj) 100 ml @ 50 mls/hr Q2H PRN IV 11/24/16 11:45 11/30/16 05:34 Potassium Bicarb/ Potassium Chloride 50 meq 50 meq UNSCH PRN PO 11/24/16 11:45 11/30/16 05:35 Potassium Chloride 100 ml @ 25 mls/hr UNSCH PRN IV 11/24/16 11:45 Potassium Chloride 100 ml @ 50 mls/hr Q2H PRN IV 11/24/16 11:45 (Magnesium Sulfate Inj/NS Inj) 100 ml @ 50 mls/hr UNSCH PRN IV 11/24/16 11:45 Magnesium Oxide 800 mg 800 mg UNSCH PRN PO 11/24/16 11:45 (Magnesium Sulfate Inj/NS Inj) 100 ml @ 50 mls/hr UNSCH PRN IV 11/24/16 11:45 Potassium Phosphate 2000 mg 2,000 mg Q4H PRN PO 11/24/16 11:45 (Sodium Phosphate Inj/NS 250 ml Inj) 250 ml @ 42 mls/hr UNSCH PRN IV 11/24/16 11:45 Potassium Phosphate 2000 mg 2,000 mg UNSCH PRN PO/TUBE 11/24/16 11:45 (Potassium Phosphate Inj/NS 250 ml Inj) 260 ml @ 42 mls/hr UNSCH PRN IV 11/24/16 11:45 (Aspirin) 325 mg DAILY PO 11/26/16 09:00 11/30/16 08:45 (Buspar) 10 mg BID PO 11/26/16 21:00 11/30/16 08:45 (Robitussin Ac 200-20 Mg/10 ml Liq) 5 ml Q6H PRN PO 11/26/16 10:30 (Spiriva Inh) 18 mcg DAILY INH 11/27/16 09:00 11/30/16 08:59 (Beneprotein Powder) 1 pack TID G-TUBE 11/27/16 13:00 11/28/16 09:52 (Coreg) 3.125 mg Q12H PO 11/27/16 13:00 Hold 11/29/16 02:00 (Lipitor) 20 mg HS PO 11/27/16 21:00 11/29/16 21:22 (Habitrol 14 Mg Patch.24 Hr) 1 patch DAILY TOPICAL 11/27/16 15:00 11/30/16 08:43 Miscellaneous Information 1 HS T-DERMAL 11/27/16 21:00 11/28/16 23:15 (Lovenox Inj) 40 mg Q24H SQ 11/28/16 10:15 11/30/16 10:48 (Morphine Inj) 2 mg Q3H PRN IV PUSH 11/28/16 20:45 11/29/16 07:40 (Symbicort 160-4.5 Inh) 2 puff Q12HR INH 11/29/16 09:00 11/30/16 08:59 (Ativan Inj) 1 mg Q2H PRN IV PUSH 11/29/16 07:45 11/29/16 08:13 (Morphine Inj) 2 mg Q3H PRN IV PUSH 11/29/16 07:45 11/29/16 23:10 (Protonix) 40 mg DAILY PO 11/30/16 09:00 (Lasix) 20 mg DAILY PO 12/01/16 09:00 (K-Lyte Cl Eff) 25 meq DAILY PO 12/01/16 09:00 (Tylenol-Codeine #3) 1 tab Q6H PRN PO 11/30/16 09:15 Vital Signs / I&O Vital Signs Date Time Temp Pulse Resp B/P Pulse Ox O2 Delivery O2 Flow Rate FiO2 11/30/16 12:00 98.7 106 30 137/72 97 11/30/16 12:00 105 11/30/16 11:25 99 Venturi Mask 35 11/30/16 10:00 96 11/30/16 08:05 97 High Flow Nasal Cannula 15.00 35 11/30/16 08:00 98.8 102 23 154/79 95 11/30/16 08:00 106 11/30/16 07:00 95 15.00 40 11/30/16 04:00 99.3 97 19 159/91 98 11/30/16 04:00 97 11/30/16 03:30 98 High Flow Nasal Cannula 15.00 35 11/30/16 02:00 89 11/30/16 00:00 83 11/30/16 00:00 99 High Flow Nasal Cannula 15.00 11/30/16 00:00 99.4 83 10 145/97 96 11/29/16 22:00 86 11/29/16 20:00 101 11/29/16 20:00 95 11/29/16 20:00 99.3 84 21 142/89 95 11/29/16 19:30 98 High Flow Nasal Cannula 15.00 40 11/29/16 17:58 96 High Flow Nasal Cannula 15.00 40 11/29/16 16:00 97.6 96 24 135/77 96 I/O 11/29/16 11/29/16 11/29/16 11/30/16 11/30/16 11/30/16 07:00 15:00 23:00 07:00 15:00 23:00 Intake Total 173 ml 330 ml 480 ml Output Total 650 ml 2850 ml 1350 ml Balance -477 ml -2520 ml -870 ml Intake Oral 30 ml 100 ml 480 ml IV Total 143 ml 230 ml Output Urine Total 650 ml 2850 ml 1350 ml Physical Exam GENERAL: In NAD SKIN: Warm and dry. HEAD: Normocephalic. EYES: No scleral icterus. No injection or drainage. NECK: Supple, trachea midline. No JVD or lymphadenopathy. CARDIOVASCULAR: Regular rate and rhythm without murmurs, gallops, or rubs. RESPIRATORY: Breath sounds equal bilaterally. No accessory muscle use. GASTROINTESTINAL: Abdomen soft, non-tender, nondistended. MUSCULOSKELETAL: No cyanosis, or edema. Laboratory Laboratory Tests Test 11/30/16 03:53 White Blood Count 10.7 TH/MM3 Red Blood Count 4.14 MIL/MM3 Hemoglobin 13.2 GM/DL Hematocrit 37.8 % Mean Corpuscular Volume 91.4 FL Mean Corpuscular Hemoglobin 31.9 PG Mean Corpuscular Hemoglobin 34.9 % Concent Red Cell Distribution Width 13.5 % Platelet Count 173 TH/MM3 Mean Platelet Volume 9.3 FL Neutrophils (%) (Auto) 87.0 % Lymphocytes (%) (Auto) 5.0 % Monocytes (%) (Auto) 7.8 % Eosinophils (%) (Auto) 0.0 % Basophils (%) (Auto) 0.2 % Neutrophils # (Auto) 9.3 TH/MM3 Lymphocytes # (Auto) 0.5 TH/MM3 Monocytes # (Auto) 0.8 TH/MM3 Eosinophils # (Auto) 0.0 TH/MM3 Basophils # (Auto) 0.0 TH/MM3 CBC Comment AUTO DIFF Differential Comment AUTO DIFF CONFIRMED Hypersegmented Polys 1+ Platelet Estimate NORMAL Platelet Morphology Comment NORMAL Red Cell Morphology Comment NORMAL Sodium Level 141 MEQ/L Potassium Level 3.0 MEQ/L Chloride Level 96 MEQ/L Carbon Dioxide Level 38.4 MEQ/L Anion Gap 7 MEQ/L Blood Urea Nitrogen 16 MG/DL Creatinine 0.54 MG/DL Estimat Glomerular Filtration 114 ML/MIN Rate Random Glucose 152 MG/DL Calcium Level 8.9 MG/DL Magnesium Level 2.1 MG/DL Total Bilirubin 0.6 MG/DL Aspartate Amino Transf 45 U/L (AST/SGOT) Alanine Aminotransferase 55 U/L (ALT/SGPT) Alkaline Phosphatase 53 U/L Total Protein 6.6 GM/DL Albumin 3.1 GM/DL Imaging Last Impressions Chest X-Ray 11/30/16 0600 Signed Impressions: Service Date/Time: Wednesday, November 30, 2016 04:12 - CONCLUSION: No acute disease. Huber Barkley MD Assessment and Plan Problem List: (1) Acute respiratory failure (2) COPD (chronic obstructive pulmonary disease) (3) Tobacco abuse (4) Hypertension (5) Cardiomyopathy Assessment and Plan Continue ICU care. Successfully weaned and extubated. She had cath within the last 2 years in [place], still trying to obtain the results. 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 Still with mild wheezing. Echo c/w ischemic CM and anterior SC. Proceed with cath and PCI if necessary tomorrow. Problem Qualifiers (1) Acute respiratory failure: Qualified Code: J96.02 - Acute respiratory failure with hypercapnia (2) Cardiomyopathy: Qualified Code: I25.5 - Ischemic cardiomyopathy Pearl Lind MD Nov 30, 2016 13:32
--- NOTE | 2016-11-30 17:22 | HHI.PR ---
Subjective Remarks 61 YOWF with RF, s/p extubation, COPD, CHF,CMP Doing well concerned about having cath Son at Objective Vital Signs Vital Signs Date Time Temp Pulse Resp B/P Pulse Ox O2 Delivery O2 Flow Rate FiO2 11/30/16 16:50 98.7 107 31 140/87 95 11/30/16 16:00 103 11/30/16 14:00 105 11/30/16 12:00 98.7 106 30 137/72 97 11/30/16 12:00 105 11/30/16 11:25 99 Venturi Mask 35 11/30/16 10:00 96 11/30/16 08:05 97 High Flow Nasal Cannula 15.00 35 11/30/16 08:00 98.8 102 23 154/79 95 11/30/16 08:00 106 11/30/16 07:00 95 15.00 40 11/30/16 04:00 99.3 97 19 159/91 98 11/30/16 04:00 97 11/30/16 03:30 98 High Flow Nasal Cannula 15.00 35 11/30/16 02:00 89 11/30/16 00:00 83 11/30/16 00:00 99 High Flow Nasal Cannula 15.00 11/30/16 00:00 99.4 83 10 145/97 96 11/29/16 22:00 86 11/29/16 20:00 101 11/29/16 20:00 95 11/29/16 20:00 99.3 84 21 142/89 95 11/29/16 19:30 98 High Flow Nasal Cannula 15.00 40 11/29/16 17:58 96 High Flow Nasal Cannula 15.00 40 I/O 11/29/16 11/29/16 11/29/16 11/30/16 11/30/16 11/30/16 07:00 15:00 23:00 07:00 15:00 23:00 Intake Total 173 ml 330 ml 480 ml 516 ml Output Total 650 ml 2850 ml 1350 ml 1500 ml Balance -477 ml -2520 ml -870 ml -984 ml Intake Oral 30 ml 100 ml 480 ml 420 ml IV Total 143 ml 230 ml 96 ml Output Urine Total 650 ml 2850 ml 1350 ml 1500 ml # Bowel Movements 0 Result Diagram: 11/30/16 0353 11/30/16 0353 Objective Remarks GENERAL: MBMN WF,NAD SKIN: Warm and dry. HEAD: Normocephalic. EYES: No scleral icterus. No injection or drainage. NECK: Supple, trachea midline. No JVD or lymphadenopathy. CARDIOVASCULAR: Regular rate and rhythm without murmurs, gallops, or rubs. RESPIRATORY: Breath sounds equal bilaterally. No accessory muscle use. End exp rhonchi GASTROINTESTINAL: Abdomen soft, non-tender, nondistended. MUSCULOSKELETAL: No cyanosis, or edema. BACK: Nontender without obvious deformity. No CVA tenderness. A/P Assessment and Plan RF s/p extubation COPD exac CHF CMP Nicotine use PLAN: Aerosol nebs Cont Solumedrol Supplement 02 DW pt and her son Plans for cath in [place]io Mcdermott MD Nov 30, 2016 17:21
[2016-11-30] MEDS: ATORVASTATIN 20 MG TAB PO SCH (20:01)
[2016-11-30] MEDS: REMOVE OLD PATCH T-DERMAL SCH ×2 (20:01→21:00)
[2016-11-30] MEDS: MORPHINE SULFATE 4 MG/ML INJ IV PUSH PRN (20:02)
[2016-11-30] MEDS: LORazepam 2 MG/ML VIAL IV PUSH PRN (22:55)
[2016-12-01] VITALS (14 sets, daily range): BP systolic 127–145; BP diastolic 76–86; PULSE 86–105; RESP 24–45; TEMP 97.5–99.3; O2SAT 90–95
[2016-12-01] MEDS: RESP: ALBUTEROL 2.5 MG/IPRATROPIUM 0.5 MG NEB (SCH) NEB ×6 (03:17→23:13)
[2016-12-01] MEDS: methylPREDNISolone SOD SUCC 125 MG/2 ML VIAL IV PUSH SCH ×3 (03:49→20:36)
[2016-12-01] MEDS: CHLORHEXIDINE GLUCONATE 2 % 1 PACK (2 CLOTHS) TOP SCH ×2 (03:49→20:05)
[2016-12-01] MEDS: MORPHINE SULFATE 4 MG/ML INJ IV PUSH PRN ×4 (03:56→20:39)
--- NOTE | 2016-12-01 05:57 | RADRPT ---
EXAM DATE/TIME: 12/01/2016 03:28 [place] COMPARISON: CHEST SINGLE AP, November 30, 2016, 4:12. INDICATIONS : Shortness of breath. MEDICAL HISTORY : None. SURGICAL HISTORY : None. ENCOUNTER: Subsequent ACUITY: 1 week PAIN SCORE: 0/10 LOCATION: Bilateral chest FINDINGS: A single view of the chest demonstrates the lungs to be symmetrically aerated without evidence of mas s, infiltrate or effusion. The cardiomediastinal contours are unremarkable. Osseous structures are intact. CONCLUSION: No acute disease. Huber Barkley MD on December 01, 2016 at 5:56 Board Certified Radiologist. This report was verified electronically.
[2016-12-01] MEDS: POTASSIUM CHLOR 20 MEQ PREMIX 100 ML IV PRN (05:58)
[2016-12-01] MEDS: POTASSIUM CHLORIDE 25 MEQ EFFERVESCENT TAB PO PRN (06:29)
[2016-12-01] MEDS: ACETAMINOPHEN/CODEINE 300 MG/30 MG TAB PO PRN (06:29)
[2016-12-01] MEDS: CHLORHEXIDINE 0.12% (ORAL KIT) 15 ML CUP MT SCH ×2 (08:00→20:00)
--- NOTE | 2016-12-01 08:32 | MB ---
cc: CARMELLA RUIZ DATE OF CONSULTATION 11/29/[address] Kaylene Hill. REASON FOR CONSULTATION COPD exacerbation . HISTORY OF THE PRESENT ILLNESS Ms. Hollingsworth is a 61-year-old female who has a longstanding history of nicotine use, COPD and coronary artery disease. The patient has seen Dr. Mueller in the past and she had a cardiac catheterization done about two years ago. She follows with Dr. Ty at [facility]. The patient's son and wyfoqcch-aa-tmo are at the bedside. They said she has had not been feeling well for more than a week. She has cough and congestion, was given antibiotics, did not get better. She was at home and was sleeping, and she woke up her that she was not feeling well. EVAC was called and she was went to [facility]. The patient was found to be in respiratory distress and she was transferred to the [facility]. The patient was intubated. She was extubated once and had to be re-intubated. Now she was extubated was, she went DNR. The patient of 100. Respiratory systems to the [facility]. The patient was intubated. She was extubated 1 cm and was intubated. She was extubated yesterday. She is holding on well. She is on nasal cannula, feels weak, mild shortness of breath. Mild wheezing. The patient stated that normally she is up, around and active. Has no seizure, stroke or epilepsy. No deep venous thrombosis or pulmonary embolism. PAST MEDICAL HISTORY Significant for: 1. A history of chronic obstructive pulmonary disease. 2. Coronary artery disease. 3. Hypertension. MEDICATIONS She is currently takin. Lasix 20 milligrams q.8h. 2. Symbicort 160/4.5 two puffs twice a day. 3. Spiriva once a day. 4. Potassium 25 mEq daily. 5. Lorazepam 1 milligram as needed. 6. Morphine as needed. 7. She is on Cardizem drip. 8. Lovenox 40 milligrams daily. 9. Lipitor 20 milligrams daily. 10. Nicotine patch 14 milligrams once a day. 11. Robitussin AC cough syrup. 12. Albuterol/Atrovent nebulizer treatment. 13. Solu-Medrol 60 milligrams q.6h. 14. Levaquin 750 milligrams daily. ALLERGIES NO KNOWN DRUG ALLERGIES. SOCIAL HISTORY She is , has a long history of smoking, continues to smoke one pack of cigarettes per day. Drinks socially. FAMILY HISTORY She has four children. REVIEW OF SYSTEMS Normally she is up, around, active. Denies any weight loss. Intermittent chest pain. PHYSICAL EXAMINATION GENERAL: Elderly female, mild short of breath. She is currently on nasal cannula. Her son and ntvjqvcy-jf-usp are at the bedside. VITAL SIGNS: Blood pressure 140/70, heart rate 97, respiratory rate 14, temperature 99. HEENT: Pupils are equal and reactive to light. Oral mucosa, nasal mucosa normal. NECK: Supple. JVP not raised. CHEST: Air entry equal bilaterally. She has expiratory rhonchi. CARDIOVASCULAR: S1, S2 normal. ABDOMEN: Benign. EXTREMITIES: No edema. IMPRESSION 1. Respiratory failure status post extubation. 2. COPD exacerbation. 3. Hypoxia. She is on high flow oxygen. 4. Nicotine use. 5. Alcohol use. 6. Cardiomyopathy, ejection fraction 35%. PLAN I discussed with the patient and her son at the bedside. She is on high-flow oxygen. We will wean the oxygen. She will use C-PAP at nighttime. Continue IV Solu-Medrol aerosol treatment with albuterol and Atrovent. Continue antibiotics. Once she gets better she will need PFT and we will evaluate her for home oxygen therapy. Thank you Dr. Hill for this consultation. Further treatment will depend on the course in the hospital. MD ROSELINE Rinaldi/PRISCILLA /3:38 PM /8:24 AM [place]
[2016-12-01] MEDS: BENEPROTEIN POWDER 1 PACK G-TUBE SCH ×3 (08:33→16:10)
[2016-12-01] MEDS: busPIRone HCL 10 MG TAB PO SCH ×2 (08:47→20:34)
[2016-12-01] MEDS: ASPIRIN 325 MG TAB PO SCH (08:47)
[2016-12-01] MEDS: NICOTINE 14 MG/24 HR PATCH TOPICAL SCH (08:47)
[2016-12-01] MEDS: PANTOPRAZOLE SOD 40 MG DELAYED RELEASE TAB PO SCH (08:47)
[2016-12-01] MEDS: FUROSEMIDE 20 MG TAB PO SCH (08:47)
[2016-12-01] MEDS: BUDESONIDE-FORMOTEROL 160/4.5 MCG INHALER INH SCH ×2 (08:48→20:33)
[2016-12-01] MEDS: POTASSIUM CHLORIDE 25 MEQ EFFERVESCENT TAB PO SCH (08:48)
[2016-12-01] MEDS: ENOXAPARIN SODIUM 40 MG/0.4 ML SYRINGE SQ SCH (08:49)
[2016-12-01] MEDS: TIOTROPIUM BROMIDE 18 MCG INH INH SCH (08:49)
[2016-12-01 09:57] LABS: AUTOMATED NEUTROPHIL # 10.7 TH/MM3 (1.8-7.7); BASOPHIL % 0.1 % (0.0-2.0); HEMATOCRIT 36.2 % (35.0-46.0); HEMO FLAGS DIFF FINAL; LYMPHOCYTE # 0.4 TH/MM3 (1.0-4.8); MEAN CELL VOLUME 92.7 FL (80.0-100.0); MEAN CORPUSCULAR HEMOGLOBIN 31.5 PG (27.0-34.0); MONO % 6.5 % (0.0-8.0); NEUT % 90.4 % (16.0-70.0); PLATELET COUNT 156 TH/MM3 (150-450); RED BLOOD COUNT 3.91 MIL/MM3 (4.00-5.30); RED CELL DISTRIBUTION WIDTH 13.8 % (11.6-17.2); WHITE BLOOD COUNT 11.8 TH/MM3 (4.0-11.0)
[2016-12-01] MEDS ORDERED: LISINOPRIL 5 MG TAB PO SCH (10:00)
--- NOTE | 2016-12-01 10:02 | HHI.CCPN ---
Subjective Remarks/Hospital Course Patient is a 60-year-old female with past medical history of COPD, hypertension , tobacco abuse. Apparently patient called EMS for increasing shortness of breath and COPD exacerbation. EMS gave her back to back breathing treatments but due to impending respiratory failure patient was intubated. Patient received 2 mg of Ativan and 20 mg of etomidate for sedation and for intubation. In the ER patient was given IV Solu-Medrol and breathing treatments. Chest x- ray was unremarkable. CT pulmonary angiogram did not show any pulmonary embolism or pneumonia shortly chronic scarring. Patient was transferred to [facility] from [place] [facility] I evaluated the patient in the ICU. She is intubated sedated has bilateral wheezing on exam. is at the bedside, confirms ongoing smoking history and history of COPD. No previous intubations. I have placed her on scheduled IV Solu-Medrol, scheduled DuoNeb and IV Levaquin. Sputum culture is ordered SUBJ 11/25: Remains intubated on sedation lightening patient is alert awake but becomes very agitated. Bilateral wheezing and respiratory distress on CPAP trial, patient was re-sedated due to respiratory distress and agitation 11/26: Failed extubation trial yesterday. Developed severe shortness of breath and respiratory distress and was reintubated. Today has bilateral inspiratory and expiratory wheezing. Will not attempt vent weaning today 11/27: Remains intubated. Continues to have bilateral wheezing. 2D Echo: The LV systolic function is nxzptmrc-hp-hycoprzg reduced with an estimated EF 35-40% . Severe anterior and apical hypokinesis. Echo consistent with ischemic cardiomyopathy. Further cardiac workup once extubated-Dr. Lind 11/28: Remains intubated, heavily sedated for ventilator synchrony. Lateral wheezing appears to have improved. And was air trapping yesterday for that reason ventilatory rate was reduced to 10. 11/28 (1645 hours): Patient was extubated about 45 mins ago after meeting acceptable weaning parameters. Nurse reported increased work of breathing and I went to examine the patient. She is clearly labored with severe bronchospasm and poor air flow. I stated to 3 family members in attendance that she was doing poorly and would probably need to be re-intubated. One stated that her oxygen saturation was 100% and that she did not need intubation. I explained about CO2 retention and respiratory failure. I explained that she has advanced COPD which may be exacerbated by bronchitis or heart failure. I explained that her ejection fraction is 35% and they expressed anger that no one had explained this to them. I stated quite simply that her pulmonary function was not adequate and that we need to support her somehow. They want BiPAP. Family states she is too sedated, we will reduce medication. I will comply with there requests. Steroids have been ordered IV q6h. Will add lasix now. Bronchodilators continued. 11/29: Events from yesterday noted. Patient currently on high flow nasal cannula. Continues to have bilateral wheezing. Patient is agreeable for BiPAP. Will use BiPAP with intermittent breaks. 11/30: Respiratory status improving remains on high flow oxygen. Continues to have bilateral wheezing but improving. Will d/w Dr. Lind re: further cardiac work up. OOB today 12/01 Patient is on 4L oxygen with good sats. Afebrile. Objective Vital Signs Date Time Temp Pulse Resp B/P Pulse Ox O2 Delivery O2 Flow Rate FiO2 12/01/16 09:26 94 Nasal Cannula 4.00 12/01/16 08:00 105 12/01/16 08:00 97.5 45 145/86 11/30/16 11:25 35 Intake and Output 11/30/16 11/30/16 12/01/16 08:00 16:00 00:00 Intake Total 516 ml 120 ml Output Total 1500 ml 550 ml Balance -984 ml -430 ml Result Diagram: 11/30/16 0353 11/30/162041 Other Results Laboratory Tests Test 11/30/16 11/30/16 15:37 20:42 Magnesium Level 2.2 MG/DL Potassium Level 3.0 MEQ/L Imaging Last Impressions Chest X-Ray 12/01/16 0600 Signed Impressions: Service Date/Time: Thursday, December 01, 2016 03:28 - CONCLUSION: No acute disease. Huber Barkley MD Objective Remarks GENERAL: Alert awake. SKIN: Warm and dry. HEAD: Atraumatic. Normocephalic. EYES: Pupils equal and round. ENT: Edentulous NECK: Trachea midline. JVD. CARDIOVASCULAR: S1-S2 normal no murmurs RESPIRATORY: B/L equal air entry with few coarse BS, wheezing GASTROINTESTINAL: Abdomen soft, non-tender, nondistended. MUSCULOSKELETAL: Extremities without clubbing, cyanosis, or edema. NEUROLOGICAL: Alert and oriented. Motor and sensation grossly preserved A/P Assessment and Plan NEURO: - Use Ativan and morphine for anxiety and shortness of breath RESP: Acute COPD exacerbation Acute hypercapnic respiratory failure - Patient was extubated 11/25/16 but, due to respiratory distress was reintubated same day. Extubated again 11/28, - Decrease Solu-Medrol 60 mg IV q8h. - DuoNeb every 4 hours scheduled and when necessary - Symbicort, Spiriva. pulmonology - Empiric Levaquin - Sputum culture-negative - Tobacco cessation, NicoDerm patch CXR today- No acute disease CV: Ischemic cardiomyopathy Elevated troponin/NSTEMI Compensated systolic heart failure Sinus tachycardia - Monitor HR and BP keep MAP>65mmHg, on On Lasix 20 mg po daily, add Lisinopril 5mg daily - LV systolic function moderately reduced EF 35-40%. Severe anterior and apical hypokinesis. -Cards is following- Dr. Lind, for possible cardiac cath today - Coreg 3.125 mg twice a day-holding due to sever wheezing, resume once resp status stabilizes. - Chest x-ray did not show any evidence of heart failure GI: - On Po diet. Protonix 40 mg po daily - Bowel regimen : - Monitor renal function, I/O's, electrolytes replacement per protocol. ID: - F/U sputum culture-negative. Empiric Levaquin for 7 days HEME: - Monitor CBC, CMP ENDO: - Electrolyte Replacement per protocol -SSI for glycemic control PROPH: - Bilateral lower extremity SCDs. Lovenox 40 mg daily, Protonix po LINES: - Utilize peripheral IVs, Follow up on labs Level 3 Bao Zimmer MD Dec 01, 2016 10:02
[2016-12-01] MEDS ORDERED: GLUCAGON 1 MG/ML VIAL OTHER PRN (10:15)
[2016-12-01] MEDS ORDERED: DEXTROSE 50% IN WATER 50 ML VIAL(D50) IV PRN (10:15)
[2016-12-01] MEDS: INSULIN NovoLIN REGULAR SUPPLEMENTAL SCALE SQ SCH ×3 (10:15→20:37)
[2016-12-01 10:28] LABS: ALKALINE PHOSPHATASE 48 U/L (45-117); ALT (GPT) 46 U/L (10-53); ANION GAP 7 MEQ/L (5-15); AST (GOT) 31 U/L (15-37); BICARBONATE 32.5 MEQ/L (21.0-32.0); BLOOD UREA NITROGEN 20 MG/DL (7-18); CHLORIDE 103 MEQ/L (98-107); GLOMERULAR FILTRATION RATE 128 ML/MIN (>89); POTASSIUM 4.5 MEQ/L (3.5-5.1); SODIUM (NA) 142 MEQ/L (136-145); TOTAL BILIRUBIN ADULT 0.6 MG/DL (0.2-1.0)
[2016-12-01] MEDS: LEVOFLOXACIN 750 MG PREMIX INJ 150 ML IV SCH (11:11)
[2016-12-01] MEDS ORDERED: IOHEXOL 350 MG/ML 50 ML BTL (for Cath Lab) OTHER ONE (14:00)
[2016-12-01] MEDS ORDERED: IOHEXOL 350 MG/ML 100 ML BTL (for Cath Lab) OTHER ONE (14:00)
[2016-12-01] MEDS ORDERED: MIDAZOLAM HCL 2 MG/2 ML VIAL ONE (14:03)
[2016-12-01] MEDS ORDERED: HEPARIN-NS/PF INJ 500 ML ONE (14:03)
[2016-12-01] MEDS ORDERED: NITROGLYCERIN INJ 5 ML ONE (14:03)
[2016-12-01] MEDS ORDERED: SODIUM CHLOR 0.9% 1000 ML INJ 500 ML IV SCH (15:06)
--- NOTE | 2016-12-01 15:06 | CATHPROC ---
[facility] HIS Report Study Information Study Number Admission Scheduled Start Study Start [id number] Nov 24 2016 10:01AM 12/01/2016 Dec 01 2016 1:39PM [place] [facility] Cardiac Catheterization Admit Source Facility Department Emergency department [facility] - Makeup Artist Physician and Clinical Staff Initial Pearl Cruz Help Desk Coordinator Cathy Correa,LYNN Help Desk Coordinator Leeanna Villegas,LYNN Help Desk Coordinator Bryan Zarate RN Recorder Karissa Oquendo RT(R) (BS) Scrub Krishna Amaral RCIS(BS) Procedures Performed Procedure Location (Site) Vessel Name Angiogram LV LV Ventricle Coronary Angiograms LCA Left Coronary Coronary Angiograms RCA Right Coronary L Heart Cath Equipment Time Administrative Assistant Front Desk Description Size Mfg Part Number Used/Scraped TRANSDUCER, SEAN [id number] 13:41 [employer] GREEN * Used W/STOCKCOCK *[id number] *[id number] [id number] *[id number] *[id number] 13:41 [employer] INDUSTRIES PACK, CCL CUSTOM * Used *[id number] 13:41 [employer] PACER PEN, SKIN DUAL W/ RULER * Used *[id number] 13:41 [employer] WIRE, 3MMJ .035 180CM 180CM Used *[id number] PROBE COVER, STERILE [id number] 13:41 [employer] * Used ULTRASOUND W/ GEL *[id number] 13:41 NAMIC MANIFOLD, 4 PORT * Used *[id number] 13:41 NAMIC TUBING, HIGH PRESSURE 48" 48" Used *[id number] 13:41 [employer] OMNIPAQUE, 350 MG, 150ML 150ML [id number] Used [id number] 13:41 [employer],WARM AIR CCL * Used *[id number] 13:41 [employer]UM[employer] MED[employer] SHEATH, FR5 TERUMO (10CM) FR 5 Used *[id number] History: Current Medications Medication Dosage/Unit Route Frequency Last Date/Time Taken LOVENOX ASA LISINOPRIL History: Allergies Allergy Reaction No Known Allergies History: Risk Factors Family History of Hypertension Dyslipidemia Previous RI Previous Heart Failure Premature CAD Yes No No No No Prior Valve Prior PCI Prior CABG Surgery No No No Cerebrovascular Peripheral Artery Chronic Lung On Dialysis Diabetes Disease Disease Disease No No No Yes No History: Symptoms/Diagnosis Selection Items SOB History: Stress Tests Stress or Imaging Studies Performed No History: Other Current Smoker Method Packs a Day Years Used Pack Years Yes Cigarettes 1 45 45 Labs Hgb (g/dl) Hct (%) WBC (l/cumm) Platelets (thousands) 11.60-17.00 35.00-51.00 4.00-11.00 150.00-450.00 12.3 36.2 11.8 156 Glucose (mg/dl) BUN (mg/dl) Creatinine (mg/dl) BUN:Creatinine (1:x) 74.00-106.00 7.00-18.00 0.50-1.30 10.00-20.00 147 20 0.4 50 Na (meq/l) K (meq/l) 136.00-145.00 3.50-5.10 142 4.5 INR (PTT:PT) 0.90-1.10 1 Troponin I (ng/ml) CPK (u/l) CPK-MB (ng/ML) 0.02-0.05 26.00-308.00 0.50-3.60 1.2 210 5.3 Medication Medication Total Dose (Bolus/Oral) Medication Total Dosage/Unit 1% XYLOCAINE 20 mL VERSED 1 mg Medications (Bolus/Oral) Medication Time Given Dosage/Unit Administered By Reason VERSED 12/01/2016 2:20:30 PM 1 mg Bryan Zarate 1 mg VERSED given in lab by Bryan Zarate, RN in Left Antecubital via Peripheral IV. 1% XYLOCAINE 12/01/2016 2:21:46 PM 20 mL Pearl Lind 20 mL 1% XYLOCAINE given in lab by Pearl Lind in Left Antecubital via Subcutaneous. Medication (Drip) Medication Time Given Dosage/Unit Concentration/Unit Diluent (ml) Solut ion IV Solutions 12/01/2016 1:57:30 PM 0 mL (IV) 500 NaCl .9 IV Solutions given in lab by Cathy Correa, LYNN in Left Antecubital via Peripheral IV. Pump/Drip Lyndon w = 20 ml/hr using NaCl .9. Initial Case Assessment Cardiovascular HR Rhythm NIBP Chest Pain 118 sinus tach 162/97 0 Edema Present Skin color Skin None Normal Warm Dry Circulatory - Right Pulses Dorsalis Pedis Femoral 1 1 Scale (0,1,2,3,4,d) Circulatory - Left Pulses Dorsalis Pedis Femoral 1 1 Scale (0,1,2,3,4,d) Circulatory - Lower Extremities Color Lower Right Color Lower Left Normal Normal Neurological State Oriented to time-place- Alert Moves all extremities person Respiration - General Respiration Rate SpO2 (%) O2 (lpm) (B/min) 17 98 2 Chronological Log Time Study Chronological Log 13:54:02 Patient arrived via Bed. 13:54:02 Patient Name, D.O.B, / Armband Verified By R.N. 13:54:03 Consent signed by the physician and the patient and verified by the Makeup Artist staff. 13:54:04 Pre-op and post- op instructions given; patient acknowledges understanding of instructions. 13:54:24 Verbal Stimulation=2 Physical Stimulation=2 Airway=2 Respiration=2 TOTAL=8. (0=absent, 1=li mited, 2=present) 13:56:48 MD arrived. 13:57:15 Presedation assessment performed by Makeup Artist RN. 13:57:19 Patient has been NPO for More than 6Hrs. 13:57:21 Skin Breakdown none per pt 13:57:25 Patient Warmer Placed on the Table. 13:57:27 Erlin Prominences Protected 13:57:28 A # 20 IV was noted in the Antecubital (left). Grade = 0 IV Solutions given in lab by Cathy Correa, RN in Left Antecubital via Peripheral IV. Pump/Dr ip Flow = 20 ml/hr using 13:57:30 NaCl .9. 13:57:31 History and physical on the chart or being dictated. Vitals capture started with the following parameters, Patient=Adult, Interval=5 min, Initial Pr wwflgf=165 mmHg, 14:03:31 Deflation Rate=5 mmHg, Cuff placed on Right Arm Assessment: Initial Case, FZ=512 BPM, Rhythm=sinus tach, FIRW=009/97 mmhg, Chest Pain=0, Edema= None, Color=Normal, Skin = Warm, Dry Right Pulses: Lemuel Ped=1, Femoral=1 Left Pulses: Lemuel Ped=1, Femoral=1 14:03:35 Lower Right Extremities: Color=Normal Lower Left Extremities: Color=Normal Neurological: State=Alert, Ox3, KRAUS Respiration: Resp=17 B/min, SpO2=98 %, O2=2 lpm 14:04:34 QI=724 bpm, COHM=531/97 mmhg, SpO2=97.0 %, Resp=16 B/min, Pain=0, [place]=10, [place]=2 14:07:06 Reference ECG taken 14:07:53 Bilateral groins prepped with 2% chlorhexidine, and with a 3 min. waiting time. 14:09:06 ND=157 bpm, MROW=502/108 mmhg, SpO2=97.0 %, Resp=15 B/min, Pain=0, [place]=10, [place]=2 14:14:05 TQ=801 bpm, OHJX=886/101 mmhg, SpO2=97.0 %, Resp=22 B/min, Pain=0, Del[place]=10, [place]=2 14:14:07 Pressure channel 1 zeroed. 14:19:06 HE=402 bpm, XBIW=894/104 mmhg, SpO2=98.0 %, Resp=11 B/min, Pain=0, Delmar=10, [place]=2 14:20:30 1 mg VERSED given in lab by Bryan Zarate RN in Left Antecubital via Peripheral IV. Time Out. Correct patient, correct procedure,correct physician, power injector loaded loaded wi th contrast with surgical 14:20:35 team present. Time Out Concurred by MD, individual staff in procedure 14:21:28 Case Start 14:21:46 20 mL 1% XYLOCAINE given in lab by Pearl Lind in Left Antecubital via Subcutaneous. 14:22:31 Access site was Right Femoral Artery using ultrasound 14:23:17 A SHEATH, FR5 TERUMO (10CM) FR 5 was advanced into the Fem Art (right) using the Percutaneo us technique. A PIGTAIL ANG. INFINITI CATHETER FR 5 was advanced over a wire. OMNIPAQUE, 350 MG, 150ML 150ML was used 14:23:55 for injections. 14:24:07 HA=493 bpm, OIEJ=807/98 mmhg, SpO2=96.0 %, Resp=19 B/min, Pain=0, Delmar=10, [place]=2 Recorded Pressure: LV, LS=266, Condition=Condition 1 14:24:47 (Left Ventricle) LV 141/9/11 14:26:06 The LV was injected at 10 cc/sec for a total of 30. OMNIPAQUE, 350 MG, 150ML 150ML used. Recorded Pressure: LV, Ao, RJ=531, Condition=Condition 1 14:26:56 (Left Ventricle) LV 146/13/13, (Aorta) Ao 152/89/116 14:27:31 Catheter was removed A JL 4.0 INFINITI CATHETER FR 5 was advanced over a wire. OMNIPAQUE, 350 MG, 150ML 150ML was us ed for 14:27:36 injections. Recorded Pressure: Ao, PZ=235, Condition=Condition 1 14:28:18 (Aorta) Ao 141/93/115 14:29:04 W[place]=459 bpm, FDZL=862/94 mmhg, SpO2=98.0 %, Resp=20 B/min, Pain=0, Del[place]=10, [place]=2 14:29:48 The LCA was injected and visualized at various angles. OMNIPAQUE, 350 MG, 150ML 150ML used . 14:32:04 Catheter was removed A AR MOD INFINITI CATHETER FR 5 was advanced over a wire. OMNIPAQUE, 350 MG, 150ML 150ML was us ed for 14:32:05 injections. 14:32:28 The RCA was injected and visualized at various angles. OMNIPAQUE, 350 MG, 150ML 150ML used . 14:33:56 Catheter was removed 14:33:59 Case End 14:34:03 HR=97 bpm, OHNA=920/79 mmhg, SpO2=98.0 %, Resp=19 B/min, Pain=0, Delmar=10, [place]=2 14:34:33 Catheter(s) removed without difficulty 14:35:16 No case complications noted. 14:35:20 Cine recording checked. 14:35:23 Bedside Report will be given. 14:35:26 Contrast Scanned 14:35:28 A Left Heart Cath was performed. 14:38:30 Sheath removed; pressure applied to access site. 14:39:05 HR=93 bpm, PZRU=371/84 mmhg, SpO2=98 %, Resp=21 B/min, Pain=0, Delmar=10, [place]=2 14:44:06 HR=97 bpm, PDKD=623/77 mmhg, SpO2=98.0 %, Resp=24 B/min, Pain=0, [place]=10, [place]=2 14:49:05 HR=97 bpm, BWGJ=190/76 mmhg, SpO2=98.0 %, Resp=23 B/min, Pain=0, Del[place]=10, [place]=2 14:53:58 Sterile dressing applied to site 14:54:00 IQ=538 bpm, IIAT=806/85 mmhg, Resp=23 B/min, Pain=0, Delmar=10, [place]=2 14:54:02 [facility] called. 14:59:24 [facility] End Study - Contrast Media Used In Study Contrast Total Opened (mL) Total Used (mL) Total Wasted (mL) Omnipaque 120 120 0 End Study - Maximum Contrast Load Max Contrast Load (mL) 650.0 End Study - Radiation Exposure Fluoro Time (minutes) 1.3 End Study - Sheaths Sheaths Pulled By Sheath Hold Time (min) Krishna Amaral End Study - Patient Disposition Complications Transferred To Interventional Outcome No Critical Care Bed No attempt made
[2016-12-01 16:23] LABS: HDL CHOLESTEROL 63.9 MG/DL (40.0-60.0)
--- NOTE | 2016-12-01 19:18 | HHI.PR ---
Subjective Remarks 61 YOWF with RF, s/p extubation, COPD, CHF,CMP Doing well Son at [facility] Had cardiac cath Objective Vital Signs Vital Signs Date Time Temp Pulse Resp B/P Pulse Ox O2 Delivery O2 Flow Rate FiO2 12/01/16 18:00 93 12/01/16 17:16 18 12/01/16 16:00 88 12/01/16 16:00 99.0 91 35 127/76 93 12/01/16 16:00 99.3 95 28 140/85 90 12/01/16 14:00 90 12/01/16 12:00 98.0 91 26 132/84 93 12/01/16 12:00 91 12/01/16 10:00 90 12/01/16 10:00 94 12/01/16 09:26 94 Nasal Cannula 4.00 12/01/16 08:00 105 12/01/16 08:00 97.5 105 45 145/86 92 12/01/16 07:29 20 12/01/16 07:00 92 Nasal Cannula 4.00 12/01/16 06:00 94 12/01/16 04:00 97.6 97 24 144/83 92 12/01/16 04:00 97 12/01/16 02:00 86 12/01/16 00:00 95 12/01/16 00:00 99.3 95 28 140/85 90 11/30/16 22:00 94 11/30/16 20:00 106 11/30/16 20:00 99.3 106 32 130/78 92 I/O 11/30/16 11/30/16 11/30/16 12/01/16 12/01/16 12/01/16 07:00 15:00 23:00 07:00 15:00 23:00 Intake Total 516 ml 120 ml 739 ml 202 ml Output Total 1500 ml 550 ml 250 ml 1250 ml Balance -984 ml -430 ml 489 ml -1048 ml Intake Oral 420 ml 120 ml 0 ml 50 ml IV Total 96 ml 0 ml 739 ml 152 ml Output Urine Total 1500 ml 550 ml 250 ml 1250 ml # Bowel Movements 0 1 0 0 Result Diagram: 12/01/16 0854 12/01/16 1142 Objective Remarks GENERAL: MBMN WF,NAD SKIN: Warm and dry. HEAD: Normocephalic. EYES: No scleral icterus. No injection or drainage. NECK: Supple, trachea midline. No JVD or lymphadenopathy. CARDIOVASCULAR: Regular rate and rhythm without murmurs, gallops, or rubs. RESPIRATORY: Breath sounds equal bilaterally. No accessory muscle use. End exp rhonchi GASTROINTESTINAL: Abdomen soft, non-tender, nondistended. MUSCULOSKELETAL: No cyanosis, or edema. BACK: Nontender without obvious deformity. No CVA tenderness. A/P Assessment and Plan RF s/p extubation COPD exac CHF CMP Nicotine use PLAN: Aerosol nebs Cont Solumedrol Supplement 02 DW pt and her son Porfirio Oneil Melecio OCONNELL Dec 01, 2016 19:18
[2016-12-01] MEDS: ATORVASTATIN 20 MG TAB PO SCH (20:34)
[2016-12-01] MEDS: REMOVE OLD PATCH T-DERMAL SCH (20:36)
--- NOTE | 2016-12-01 21:36 | MR ---
cc: JUSTINO RIVERA DATE: 12/01/2016 INDICATIONS Rhz-CG-qoqewvrun myocardial function, cardiomyopathy with moderate left ventricular dysfunction, congestive heart failure, class II angina. PROCEDURE PERFORMED 1. Retrograde heart catheterization with left ventriculography and selective coronary angiography. 2. Moderate sedation ACCESS SITE Right femoral artery EQUIPMENT USED 5 American pigtail catheter, 5 American JL4 and AR modified coronary artery catheters. MEDICATIONS Versed IV CONTRAST Omnipaque 125 cc. COMPLICATIONS None. BLOOD LOSS: Less than 10 cc METHOD OF HEMOSTASIS Manual compression. RESULTS HEMODYNAMICS Heart rate 100 beats per minute. Left ventricular end-diastolic pressure 13 mmHg. Left ventricle 140/13. Aorta 140/93/115 LEFT VENTRICULOGRAPHY Left ventricular ejection fraction 35%. Wall motion, akinesis of the mid to left ventricle with hyperdynamic basilar and apical segments. CORONARY ANGIOGRAPHY The main coronary artery is patent. Left anterior descending artery: Patent. First diagonal artery is large and patent. Circumflex artery has 30% stenosis in the mid portion. OM1, patent. OM2, patent. Right coronary artery is a dominant vessel with 30% stenosis in the proximal portion and 20% stenosis in the mid portion. PDA patent. PLV patent. DIAGNOSIS: 1. Mild nonobstructive coronary artery disease. 2. Moderate left ventricular dysfunction, consistent with Tako-Tsubo cardiomyopathy. DISPOSITION Ms. Hollingsworth will continue her current medical therapy for congestive heart failure. Her study revealed no evidence of significant obstructive disease and moderate left ventricular dysfunction. She is strongly encouraged to quit smoking. MD BROOKLYN Lora/ALEX /3:03 PM /9:21 PM
[2016-12-01] MEDS: LORazepam 2 MG/ML VIAL IV PUSH PRN (23:02)
[2016-12-02] VITALS (13 sets, daily range): BP systolic 101–145; BP diastolic 59–85; PULSE 72–105; RESP 16–37; TEMP 96.8–99.2; O2SAT 94–100
[2016-12-02] MEDS: MORPHINE SULFATE 4 MG/ML INJ IV PUSH PRN ×3 (03:01→18:51)
[2016-12-02] MEDS: INSULIN NovoLIN REGULAR SUPPLEMENTAL SCALE SQ SCH ×4 (03:15→21:49)
[2016-12-02] MEDS: RESP: ALBUTEROL 2.5 MG/IPRATROPIUM 0.5 MG NEB (SCH) NEB ×2 (03:55→08:56)
[2016-12-02] MEDS: methylPREDNISolone SOD SUCC 125 MG/2 ML VIAL IV PUSH SCH ×3 (05:24→21:44)
[2016-12-02 06:35] LABS: AUTOMATED NEUTROPHIL # 7.6 TH/MM3 (1.8-7.7); BASOPHIL % 0.1 % (0.0-2.0); HEMATOCRIT 34.9 % (35.0-46.0); HEMO FLAGS DIFF FINAL; LYMPHOCYTE # 0.7 TH/MM3 (1.0-4.8); MEAN CORPUSCULAR HEMOGLOBIN 31.3 PG (27.0-34.0); MEAN CORPUSCULAR HGB CONC 33.6 % (32.0-36.0); MONO % 12.3 % (0.0-8.0); NEUT % 80.6 % (16.0-70.0); PLATELET COUNT 141 TH/MM3 (150-450); RED BLOOD COUNT 3.76 MIL/MM3 (4.00-5.30); RED CELL DISTRIBUTION WIDTH 13.5 % (11.6-17.2); WHITE BLOOD COUNT 9.4 TH/MM3 (4.0-11.0)
[2016-12-02 06:51] LABS: ANION GAP 5 MEQ/L (5-15); AST (GOT) 37 U/L (15-37); BICARBONATE 35.1 MEQ/L (21.0-32.0); BLOOD UREA NITROGEN 21 MG/DL (7-18); CHLORIDE 99 MEQ/L (98-107); GLOMERULAR FILTRATION RATE 157 ML/MIN (>89); POTASSIUM 3.8 MEQ/L (3.5-5.1); SODIUM (NA) 139 MEQ/L (136-145)
[2016-12-02 06:52] LABS: ALT (GPT) 43 U/L (10-53)
[2016-12-02 06:54] LABS: ALKALINE PHOSPHATASE 41 U/L (45-117); TOTAL BILIRUBIN ADULT 0.7 MG/DL (0.2-1.0)
--- NOTE | 2016-12-02 07:33 | HHI.CCPN ---
Subjective Remarks/Hospital Course Patient is a 60-year-old female with past medical history of COPD, hypertension , tobacco abuse. Apparently patient called EMS for increasing shortness of breath and COPD exacerbation. EMS gave her back to back breathing treatments but due to impending respiratory failure patient was intubated. Patient received 2 mg of Ativan and 20 mg of etomidate for sedation and for intubation. In the ER patient was given IV Solu-Medrol and breathing treatments. Chest x- ray was unremarkable. CT pulmonary angiogram did not show any pulmonary embolism or pneumonia shortly chronic scarring. Patient was transferred to [facility] from [place] [facility] I evaluated the patient in the ICU. She is intubated sedated has bilateral wheezing on exam. is at the bedside, confirms ongoing smoking history and history of COPD. No previous intubations. I have placed her on scheduled IV Solu-Medrol, scheduled DuoNeb and IV Levaquin. Sputum culture is ordered SUBJ 11/25: Remains intubated on sedation lightening patient is alert awake but becomes very agitated. Bilateral wheezing and respiratory distress on CPAP trial, patient was re-sedated due to respiratory distress and agitation 11/26: Failed extubation trial yesterday. Developed severe shortness of breath and respiratory distress and was reintubated. Today has bilateral inspiratory and expiratory wheezing. Will not attempt vent weaning today 11/27: Remains intubated. Continues to have bilateral wheezing. 2D Echo: The LV systolic function is [id number] reduced with an estimated EF 35-40% . Severe anterior and apical hypokinesis. Echo consistent with ischemic cardiomyopathy. Further cardiac workup once extubated-Dr. Lind 11/28: Remains intubated, heavily sedated for ventilator synchrony. Lateral wheezing appears to have improved. And was air trapping yesterday for that reason ventilatory rate was reduced to 10. 11/28 (1645 hours): Patient was extubated about 45 mins ago after meeting acceptable weaning parameters. Nurse reported increased work of breathing and I went to examine the patient. She is clearly labored with severe bronchospasm and poor air flow. I stated to 3 family members in attendance that she was doing poorly and would probably need to be re-intubated. One stated that her oxygen saturation was 100% and that she did not need intubation. I explained about CO2 retention and respiratory failure. I explained that she has advanced COPD which may be exacerbated by bronchitis or heart failure. I explained that her ejection fraction is 35% and they expressed anger that no one had explained this to them. I stated quite simply that her pulmonary function was not adequate and that we need to support her somehow. They want BiPAP. Family states she is too sedated, we will reduce medication. I will comply with there requests. Steroids have been ordered IV q6h. Will add lasix now. Bronchodilators continued. 11/29: Events from yesterday noted. Patient currently on high flow nasal cannula. Continues to have bilateral wheezing. Patient is agreeable for BiPAP. Will use BiPAP with intermittent breaks. 11/30: Respiratory status improving remains on high flow oxygen. Continues to have bilateral wheezing but improving. Will d/w Dr. Lind re: further cardiac work up. OOB today 12/01 Patient is on 4L oxygen with good sats. Afebrile. 12/02 Patient s/p cardiac cath yesterday which showed mild non obstructive CAD, mod LV dysfunction ( EF 35%) with Tako-Tsubo syndrome. Objective Vital Signs Date Time Temp Pulse Resp B/P Pulse Ox O2 Delivery O2 Flow Rate FiO2 12/02/16 07:00 Nasal Cannula 5.00 12/02/16 06:00 72 12/02/16 04:00 98.3 37 114/65 94 11/30/16 11:25 35 Intake and Output 12/01/16 12/01/16 12/02/16 08:00 16:00 00:00 Intake Total 739 ml 202 ml 240 ml Output Total 250 ml 1250 ml 700 ml Balance 489 ml -1048 ml -460 ml Result Diagram: 12/02/16 0615 12/02/16 0615 Other Results Laboratory Tests Test 12/01/16 12/01/16 12/02/16 08:54 11:42 06:15 White Blood Count 11.8 TH/MM3 9.4 TH/MM3 Red Blood Count 3.91 MIL/MM3 3.76 MIL/MM3 Hemoglobin 12.3 GM/DL 11.7 GM/DL Hematocrit 36.2 % 34.9 % Mean Corpuscular Volume 92.7 FL 93.0 FL Mean Corpuscular Hemoglobin 31.5 PG 31.3 PG Mean Corpuscular Hemoglobin 34.0 % 33.6 % Concent Red Cell Distribution Width 13.8 % 13.5 % Platelet Count 156 TH/MM3 141 TH/MM3 Mean Platelet Volume 9.5 FL 8.7 FL Neutrophils (%) (Auto) 90.4 % 80.6 % Lymphocytes (%) (Auto) 3.0 % 7.0 % Monocytes (%) (Auto) 6.5 % 12.3 % Eosinophils (%) (Auto) 0.0 % 0.0 % Basophils (%) (Auto) 0.1 % 0.1 % Neutrophils # (Auto) 10.7 TH/MM3 7.6 TH/MM3 Lymphocytes # (Auto) 0.4 TH/MM3 0.7 TH/MM3 Monocytes # (Auto) 0.8 TH/MM3 1.2 TH/MM3 Eosinophils # (Auto) 0.0 TH/MM3 0.0 TH/MM3 Basophils # (Auto) 0.0 TH/MM3 0.0 TH/MM3 CBC Comment DIFF FINAL DIFF FINAL Differential Comment Sodium Level 142 MEQ/L 139 MEQ/L Potassium Level 4.5 MEQ/L 4.1 MEQ/L 3.8 MEQ/L Chloride Level 103 MEQ/L 99 MEQ/L Carbon Dioxide Level 32.5 MEQ/L 35.1 MEQ/L Anion Gap 7 MEQ/L 5 MEQ/L Blood Urea Nitrogen 20 MG/DL 21 MG/DL Creatinine 0.49 MG/DL 0.41 MG/DL Estimat Glomerular Filtration 128 ML/MIN 157 ML/MIN Rate Random Glucose 147 MG/DL 109 MG/DL Calcium Level 8.7 MG/DL 8.6 MG/DL Total Bilirubin 0.6 MG/DL 0.7 MG/DL Aspartate Amino Transf 31 U/L 37 U/L (AST/SGOT) Alanine Aminotransferase 46 U/L 43 U/L (ALT/SGPT) Alkaline Phosphatase 48 U/L 41 U/L Total Protein 5.8 GM/DL 5.4 GM/DL Albumin 3.0 GM/DL 2.8 GM/DL Triglycerides Level 135 MG/DL Cholesterol Level 202 MG/DL LDL Cholesterol 111 MG/DL HDL Cholesterol 63.9 MG/DL Cholesterol/HDL Ratio 3.16 RATIO Imaging Last Impressions Chest X-Ray 12/01/16 0600 Signed Impressions: Service Date/Time: Thursday, December 01, 2016 03:28 - CONCLUSION: No acute disease. Huber Barkley MD Objective Remarks GENERAL: Alert awake. SKIN: Warm and dry. HEAD: Atraumatic. Normocephalic. EYES: Pupils equal and round. ENT: Edentulous NECK: Trachea midline. JVD. CARDIOVASCULAR: S1-S2 normal no murmurs RESPIRATORY: B/L equal air entry with few coarse BS, wheezing GASTROINTESTINAL: Abdomen soft, non-tender, nondistended. MUSCULOSKELETAL: Extremities without clubbing, cyanosis, or edema. NEUROLOGICAL: Alert and oriented. Motor and sensation grossly preserved A/P Assessment and Plan NEURO: - Use Ativan and morphine for anxiety and shortness of breath RESP: Acute COPD exacerbation Acute hypercapnic respiratory failure - Patient was extubated 11/25/16 but, due to respiratory distress was reintubated same day. Extubated again 11/28, - Solu-Medrol 60 mg IV q8h. - DuoNeb every 4 hours scheduled and when necessary - Symbicort, Spiriva. pulmonology - Empiric Levaquin - Sputum culture-negative - Tobacco cessation, NicoDerm patch CXR 12/01- No acute disease CV: Ischemic cardiomyopathy Elevated troponin/NSTEMI Compensated systolic heart failure Sinus tachycardia - Monitor HR and BP keep MAP>65mmHg, on On Lasix 20 mg po daily, Lisinopril 10 mg daily, ASA 81 mg daily, Lipitor 20mg hs - LV systolic function moderately reduced EF 35-40%. Severe anterior and apical hypokinesis. -Cards is following- Dr. Lind, s/p cardiac cath yesterday which showed mild non obstructive CAD, mod LV dysfunction ( EF 35%) with Tako-Tsubo syndrome. GI: - On Po diet. Protonix 40 mg po daily - Bowel regimen : - Monitor renal function, I/O's, electrolytes replacement per protocol. ID: - F/U sputum culture-negative on 11/25. d/c Levaquin has been on it since 11/24 HEME: - Monitor CBC, CMP ENDO: - Electrolyte Replacement per protocol -SSI for glycemic control PROPH: - Bilateral lower extremity SCDs. Lovenox 40 mg daily, Protonix po LINES: - Utilize peripheral IVs, Level 3 Bao Zimmer MD Dec 02, 2016 07:33
[2016-12-02] MEDS: CHLORHEXIDINE 0.12% (ORAL KIT) 15 ML CUP MT SCH ×2 (08:00→20:00)
[2016-12-02] MEDS: FUROSEMIDE 20 MG TAB PO SCH (08:34)
[2016-12-02] MEDS: POTASSIUM CHLORIDE 25 MEQ EFFERVESCENT TAB PO SCH (08:34)
[2016-12-02] MEDS: PANTOPRAZOLE SOD 40 MG DELAYED RELEASE TAB PO SCH (08:34)
[2016-12-02] MEDS: BUDESONIDE-FORMOTEROL 160/4.5 MCG INHALER INH SCH ×2 (08:35→21:41)
[2016-12-02] MEDS: busPIRone HCL 10 MG TAB PO SCH ×2 (08:35→21:43)
[2016-12-02] MEDS: ASPIRIN 81 MG CHEW TAB PO SCH (08:35)
[2016-12-02] MEDS: BENEPROTEIN POWDER 1 PACK G-TUBE SCH ×3 (08:35→18:00)
[2016-12-02] MEDS: LISINOPRIL 10 MG TAB PO SCH (08:35)
[2016-12-02] MEDS: TIOTROPIUM BROMIDE 18 MCG INH INH SCH (08:36)
[2016-12-02] MEDS: NICOTINE 14 MG/24 HR PATCH TOPICAL SCH (08:46)
[2016-12-02] MEDS: ENOXAPARIN SODIUM 40 MG/0.4 ML SYRINGE SQ SCH (10:51)
[2016-12-02] MEDS ORDERED: ONDANSETRON HCL 4 MG/2 ML VIAL IV PUSH ONE (11:15)
--- NOTE | 2016-12-02 14:30 | PD.CARD.PN ---
Subjective Subjective Remarks No CP or excessive SOB, ambulating in the room Objective Medications Current Medications Medications (Trade) Dose Ordered Sig/Jeniffer Route Start Time Stop Time Status Last Admin (Peridex 0.12% Liq) 15 ml BID@08,20 MT 11/24/16 20:00 11/28/16 08:00 Miscellaneous Information 1 Q361D XX 11/24/16 11:30 11/24/16 11:30 (Chlorhexidine 2% Cloth) Taper DAILY@04 TOP 11/25/16 04:00 11/21/17 03:59 12/01/16 03:49 (Chlorhexidine 2% Cloth) 3 pack UNSCH PRN TOP 11/24/16 11:30 (Buspar) 10 mg BID PO 11/26/16 21:00 12/02/16 08:35 (Robitussin Ac 200-20 Mg/10 ml Liq) 5 ml Q6H PRN PO 11/26/16 10:30 (Spiriva Inh) 18 mcg DAILY INH 11/27/16 09:00 12/02/16 08:36 (Beneprotein Powder) 1 pack TID G-TUBE 11/27/16 13:00 12/02/16 08:35 (Coreg) 3.125 mg Q12H PO 11/27/16 13:00 Hold 11/29/16 02:00 (Lipitor) 20 mg HS PO 11/27/16 21:00 12/01/16 20:34 (Habitrol 14 Mg Patch.24 Hr) 1 patch DAILY TOPICAL 11/27/16 15:00 12/02/16 08:46 Miscellaneous Information 1 HS T-DERMAL 11/27/16 21:00 11/30/16 21:00 (Lovenox Inj) 40 mg Q24H SQ 11/28/16 10:15 12/02/16 10:51 (Morphine Inj) 2 mg Q3H PRN IV PUSH 11/28/16 20:45 11/29/16 07:40 (Symbicort 160-4.5 Inh) 2 puff Q12HR INH 11/29/16 09:00 12/02/16 08:35 (Ativan Inj) 1 mg Q2H PRN IV PUSH 11/29/16 07:45 12/01/16 23:02 (Morphine Inj) 2 mg Q3H PRN IV PUSH 11/29/16 07:45 8/2/17 11:12 (Protonix) 40 mg DAILY PO 11/30/16 09:00 12/02/16 08:34 (Lasix) 20 mg DAILY PO 12/01/16 09:00 12/02/16 08:34 (K-Lyte Cl Eff) 25 meq DAILY PO 12/01/16 09:00 12/02/16 08:34 (Tylenol-Codeine #3) 1 tab Q6H PRN PO 11/30/16 09:15 12/01/16 06:29 (SoluMEDROL INJ) 60 mg Q8HR IV PUSH 12/01/16 14:00 12/02/16 12:58 (D50w (Vial) Inj) 50 ml UNSCH PRN IV 12/01/16 10:15 (Glucagon Inj) 1 mg UNSCH PRN OTHER 12/01/16 10:15 (NovoLIN R SUPPLEMENTAL SCALE) 1 Q6H SQ 12/01/16 10:15 (Aspirin Chew) 81 mg DAILY PO 12/02/16 09:00 12/02/16 08:35 (Prinivil) 10 mg DAILY PO 12/02/16 09:00 12/02/16 08:35 Vital Signs / I&O Vital Signs Date Time Temp Pulse Resp B/P Pulse Ox O2 Delivery O2 Flow Rate FiO2 12/02/16 12:00 96.8 84 16 105/62 96 12/02/16 10:00 102 12/02/16 09:12 100 Nasal Cannula 4.00 12/02/16 08:57 99 Nasal Cannula 5.00 12/02/16 08:00 84 12/02/16 08:00 98.9 84 25 127/78 94 12/02/16 07:00 Nasal Cannula 5.00 12/02/16 06:00 72 12/02/16 04:00 98.3 73 37 114/65 94 12/02/16 04:00 73 12/02/16 02:00 92 12/02/16 00:00 99.2 105 33 145/85 94 12/02/16 00:00 105 12/02/16 00:00 Nasal Cannula 5.00 12/01/16 22:00 86 12/01/16 20:13 94 Nasal Cannula 4.00 12/01/16 20:00 Nasal Cannula 4.00 12/01/16 20:00 98.8 104 45 139/76 95 12/01/16 20:00 104 12/01/16 18:00 93 12/01/16 17:16 18 12/01/16 16:00 88 12/01/16 16:00 99.0 91 35 127/76 93 12/01/16 16:00 99.3 95 28 140/85 90 I/O 12/01/16 12/01/16 12/01/16 12/02/16 12/02/16 12/02/16 07:00 15:00 23:00 07:00 15:00 23:00 Intake Total 739 ml 202 ml 240 ml 240 ml Output Total 250 ml 1250 ml 700 ml 300 ml Balance 489 ml -1048 ml -460 ml -60 ml Intake Oral 0 ml 50 ml 240 ml 240 ml IV Total 739 ml 152 ml Output Urine Total 250 ml 1250 ml 700 ml 300 ml # Bowel Movements 0 0 1 Physical Exam GENERAL: In NAD SKIN: Warm and dry. HEAD: Normocephalic. EYES: No scleral icterus. No injection or drainage. NECK: Supple, trachea midline. No JVD or lymphadenopathy. CARDIOVASCULAR: Regular rate and rhythm without murmurs, gallops, or rubs. RESPIRATORY: Breath sounds equal bilaterally. No accessory muscle use. GASTROINTESTINAL: Abdomen soft, non-tender, nondistended. MUSCULOSKELETAL: No cyanosis, or edema. Groin stable. Laboratory Laboratory Tests Test 12/02/16 06:15 White Blood Count 9.4 TH/MM3 Red Blood Count 3.76 MIL/MM3 Hemoglobin 11.7 GM/DL Hematocrit 34.9 % Mean Corpuscular Volume 93.0 FL Mean Corpuscular Hemoglobin 31.3 PG Mean Corpuscular Hemoglobin 33.6 % Concent Red Cell Distribution Width 13.5 % Platelet Count 141 TH/MM3 Mean Platelet Volume 8.7 FL Neutrophils (%) (Auto) 80.6 % Lymphocytes (%) (Auto) 7.0 % Monocytes (%) (Auto) 12.3 % Eosinophils (%) (Auto) 0.0 % Basophils (%) (Auto) 0.1 % Neutrophils # (Auto) 7.6 TH/MM3 Lymphocytes # (Auto) 0.7 TH/MM3 Monocytes # (Auto) 1.2 TH/MM3 Eosinophils # (Auto) 0.0 TH/MM3 Basophils # (Auto) 0.0 TH/MM3 CBC Comment DIFF FINAL Differential Comment Sodium Level 139 MEQ/L Potassium Level 3.8 MEQ/L Chloride Level 99 MEQ/L Carbon Dioxide Level 35.1 MEQ/L Anion Gap 5 MEQ/L Blood Urea Nitrogen 21 MG/DL Creatinine 0.41 MG/DL Estimat Glomerular Filtration 157 ML/MIN Rate Random Glucose 109 MG/DL Calcium Level 8.6 MG/DL Total Bilirubin 0.7 MG/DL Aspartate Amino Transf 37 U/L (AST/SGOT) Alanine Aminotransferase 43 U/L (ALT/SGPT) Alkaline Phosphatase 41 U/L Total Protein 5.4 GM/DL Albumin 2.8 GM/DL Imaging Last Impressions Chest X-Ray 12/01/16 0600 Signed Impressions: Service Date/Time: Thursday, December 01, 2016 03:28 - CONCLUSION: No acute disease. Hbuer Barkley MD Assessment and Plan Problem List: (1) Acute respiratory failure (2) COPD (chronic obstructive pulmonary disease) (3) Tobacco abuse (4) Hypertension (5) Cardiomyopathy Assessment and Plan Cath showed mild CAD and moderate LV dysfunction c/w Tako Tsubo CM. Continue tx for CHF including carvedilol and lisinopril. Anticipate improvement of LV fx with therapy. Increase activity. Problem Qualifiers (1) Acute respiratory failure: Qualified Code: J96.02 - Acute respiratory failure with hypercapnia (2) Cardiomyopathy: Qualified Code: I51.81 - Stress-induced cardiomyopathy Pearl Lind MD Dec 02, 2016 14:30
[2016-12-02] MEDS: RESP: ALBUTEROL 2.5 MG/3 ML NEB (PRN) INH (15:24)
--- NOTE | 2016-12-02 18:51 | HHI.PR ---
Subjective Remarks 61 YOWF with RF, s/p extubation, COPD, CHF,CMP Doing well Had cardiac cath No sign obst EF decreased Objective Vital Signs Vital Signs Date Time Temp Pulse Resp B/P Pulse Ox O2 Delivery O2 Flow Rate FiO2 12/02/16 15:24 96 Nasal Cannula 4.00 12/02/16 12:00 96.8 84 16 105/62 96 12/02/16 10:00 102 12/02/16 09:12 100 Nasal Cannula 4.00 12/02/16 08:57 99 Nasal Cannula 5.00 12/02/16 08:00 84 12/02/16 08:00 98.9 84 25 127/78 94 12/02/16 07:00 Nasal Cannula 5.00 12/02/16 06:00 72 12/02/16 04:00 98.3 73 37 114/65 94 12/02/16 04:00 73 12/02/16 02:00 92 12/02/16 00:00 99.2 105 33 145/85 94 12/02/16 00:00 105 12/02/16 00:00 Nasal Cannula 5.00 12/01/16 22:00 86 12/01/16 20:13 94 Nasal Cannula 4.00 12/01/16 20:00 Nasal Cannula 4.00 12/01/16 20:00 98.8 104 45 139/76 95 12/01/16 20:00 104 I/O 12/01/16 12/01/16 12/01/16 12/02/16 12/02/16 12/02/16 07:00 15:00 23:00 07:00 15:00 23:00 Intake Total 739 ml 202 ml 240 ml 240 ml 500 ml Output Total 250 ml 1250 ml 700 ml 300 ml Balance 489 ml -1048 ml -460 ml -60 ml 500 ml Intake Oral 0 ml 50 ml 240 ml 240 ml 500 ml IV Total 739 ml 152 ml Output Urine Total 250 ml 1250 ml 700 ml 300 ml # Voids 3 # Bowel Movements 0 0 1 2 Result Diagram: 12/02/1615 12/02/1615 Objective Remarks GENERAL: MBMN WF,NAD SKIN: Warm and dry. HEAD: Normocephalic. EYES: No scleral icterus. No injection or drainage. NECK: Supple, trachea midline. No JVD or lymphadenopathy. CARDIOVASCULAR: Regular rate and rhythm without murmurs, gallops, or rubs. RESPIRATORY: Breath sounds equal bilaterally. No accessory muscle use. End exp rhonchi GASTROINTESTINAL: Abdomen soft, non-tender, nondistended. MUSCULOSKELETAL: No cyanosis, or edema. BACK: Nontender without obvious deformity. No CVA tenderness. A/P Assessment and Plan RF s/p extubation COPD exac CHF CMP Nicotine use PLAN: Aerosol nebs Cont Solumedrol Supplement 02 Porfirio Oneil MD Dec 02, 2016 18:51
[2016-12-02] MEDS: REMOVE OLD PATCH T-DERMAL SCH (21:00)
[2016-12-02] MEDS: ATORVASTATIN 20 MG TAB PO SCH (21:43)
[2016-12-03] MEDS: LORazepam 2 MG/ML VIAL IV PUSH PRN ×2 (01:26→22:33)
[2016-12-03] MEDS: CHLORHEXIDINE GLUCONATE 2 % 1 PACK (2 CLOTHS) TOP SCH (04:00)
[2016-12-03] MEDS: INSULIN NovoLIN REGULAR SUPPLEMENTAL SCALE SQ SCH ×4 (04:15→20:08)
[2016-12-03 04:19] VITALS: BP 123/70; PULSE 72; RESP 18; TEMP 96.4; O2SAT 98
[2016-12-03] MEDS: methylPREDNISolone SOD SUCC 125 MG/2 ML VIAL IV PUSH SCH ×3 (05:00→20:12)
[2016-12-03 07:00] LABS: AUTOMATED NEUTROPHIL # 6.4 TH/MM3 (1.8-7.7); HEMATOCRIT 36.3 % (35.0-46.0); HEMO FLAGS DIFF FINAL; LYMPH % 8.9 % (9.0-44.0); LYMPHOCYTE # 0.7 TH/MM3 (1.0-4.8); MEAN CELL VOLUME 93.4 FL (80.0-100.0); MEAN CORPUSCULAR HEMOGLOBIN 31.4 PG (27.0-34.0); MEAN CORPUSCULAR HGB CONC 33.7 % (32.0-36.0); MONO % 8.6 % (0.0-8.0); NEUT % 82.5 % (16.0-70.0); PLATELET COUNT 126 TH/MM3 (150-450); RED BLOOD COUNT 3.88 MIL/MM3 (4.00-5.30); RED CELL DISTRIBUTION WIDTH 13.3 % (11.6-17.2); WHITE BLOOD COUNT 7.8 TH/MM3 (4.0-11.0)
[2016-12-03] MEDS: CHLORHEXIDINE 0.12% (ORAL KIT) 15 ML CUP MT SCH ×2 (08:00→20:00)
[2016-12-03] MEDS: BUDESONIDE-FORMOTEROL 160/4.5 MCG INHALER INH SCH ×2 (09:00→20:09)
[2016-12-03] MEDS: TIOTROPIUM BROMIDE 18 MCG INH INH SCH (09:00)
[2016-12-03] MEDS: BENEPROTEIN POWDER 1 PACK G-TUBE SCH ×3 (09:00→16:31)
[2016-12-03] MEDS: NICOTINE 14 MG/24 HR PATCH TOPICAL SCH (09:38)
[2016-12-03] MEDS: LISINOPRIL 10 MG TAB PO SCH (09:38)
[2016-12-03] MEDS: ASPIRIN 81 MG CHEW TAB PO SCH (09:38)
[2016-12-03] MEDS: FUROSEMIDE 20 MG TAB PO SCH (09:39)
[2016-12-03] MEDS: busPIRone HCL 10 MG TAB PO SCH ×2 (09:39→20:10)
[2016-12-03] MEDS: POTASSIUM CHLORIDE 25 MEQ EFFERVESCENT TAB PO SCH (09:39)
[2016-12-03] MEDS: ENOXAPARIN SODIUM 40 MG/0.4 ML SYRINGE SQ SCH (09:39)
[2016-12-03] MEDS: PANTOPRAZOLE SOD 40 MG DELAYED RELEASE TAB PO SCH (09:39)
--- NOTE | 2016-12-03 10:20 | HHI.PR ---
Subjective Remarks Follow up COPD exacerbation, respiratory failure. Patient fell in the bathroom this morning. States that she lost her balance. No lightheadedness, dizziness. Did not hit her head. Has pain in the left shoulder and upper arm. Denies chest pain. Dyspnea is stable. Objective Vitals Vital Signs Date Time Temp Pulse Resp B/P Pulse Ox O2 Delivery O2 Flow Rate FiO2 12/03/16 05:05 Nasal Cannula 4.00 12/03/16 04:19 96.4 72 18 123/70 98 12/02/16 23:46 98.5 77 21 101/59 97 12/02/16 22:42 75 12/02/16 21:45 Nasal Cannula 4.00 12/02/16 20:30 99.1 88 21 106/59 95 12/02/16 15:24 96 Nasal Cannula 4.00 12/02/16 12:00 96.8 84 16 105/62 96 I/O 12/02/16 12/02/16 12/02/16 12/03/16 12/03/16 12/03/16 07:00 15:00 23:00 07:00 15:00 23:00 Intake Total 240 ml 500 ml 280 ml 360 ml Output Total 300 ml Balance -60 ml 500 ml 280 ml 360 ml Intake Oral 240 ml 500 ml 280 ml 360 ml IV Total 0 ml 0 ml Output Urine Total 300 ml # Voids 3 2 2 # Bowel Movements 1 2 Result Diagram: 12/03/16 0607 12/03/16 0607 Imaging Last Impressions Chest X-Ray 12/01/16 0600 Signed Impressions: Service Date/Time: Thursday, December 01, 2016 03:28 - CONCLUSION: No acute disease. Huber Barkley MD Objective Remarks General: No acute distress. Heart: Regular rate and rhythm. No murmur. Lungs: Scattered wheeze. Breathing is nonlabored. Abdomen: Soft, mildly tender in the lower abdomen without rebound or guarding, nondistended. Extremities: No lower extremity edema. Tenderness to palpation of the lateral upper left arm. She has full range of motion of the left arm and shoulder. Psych: Alert and oriented. Procedures 11/25/16 intubation 12/01/16 retrograde heart catheterization with left ventriculography and selective coronary angiography Urinary Catheter: No Vascular Central Line Catheter: No A/P Problem List: (1) Acute respiratory failure ICD Code: J96.00 Status: Acute (2) COPD with acute exacerbation ICD Code: J44.1 Status: Acute (3) Hypokalemia ICD Code: E87.6 Status: Resolved (4) COPD (chronic obstructive pulmonary disease) ICD Code: J44.9 Status: Chronic (5) Tobacco abuse ICD Code: Z72.0 Status: Acute (6) Hypertension ICD Code: I10 Status: Chronic (7) Fall ICD Code: W19.XXXA Status: Acute (8) Takotsubo cardiomyopathy ICD Code: I51.81 Status: Acute (9) Left upper arm pain ICD Code: M79.622 Status: Acute Assessment and Plan 1. COPD exacerbation, acute hypercapnic respiratory failure: Patient was extubated on 11/25/16, but was reintubated the same day. Extubated again on . Continue steroids, taper per pulmonology. Continue bronchodilators, Symbicort, Spiriva. Appreciate pulmonology recommendations. Completed course of empiric Levaquin. Sputum cultures are negative. 2. Takotsubo cardiomyopathy: Appreciate cardiology recommendations. Cardiac catheterization showed mild CAD and moderate left ventricular dysfunction. Continue carvedilol, lisinopril. 3. GI prophylaxis: Protonix. 4. DVT prophylaxis: SCDs, Lovenox. 5. Fall: Patient has pain in her left upper arm. Will check x-ray. She denies hitting her head. Also denies symptoms of lightheadedness, dizziness. Discharge Planning Anticipate discharge home next 1-2 days if cleared by pulmonology, cardiology. Problem Qualifiers (1) Acute respiratory failure: Qualified Code: J96.02 - Acute respiratory failure with hypercapnia Low Stevens MD Dec 03, 2016 10:19
[2016-12-03] MEDS ORDERED: NEBULIZER1 MI1 (10:21)
[2016-12-03 12:00] VITALS: BP 110/60; PULSE 73; RESP 16; TEMP 97.7; O2SAT 92
[2016-12-03] MEDS: ACETAMINOPHEN/CODEINE 300 MG/30 MG TAB PO PRN ×2 (12:01→18:41)
[2016-12-03] MEDS: RESP: ALBUTEROL 2.5 MG/3 ML NEB (PRN) INH ×2 (13:38→22:45)
--- NOTE | 2016-12-03 13:40 | RADRPT ---
EXAM DATE/TIME: 12/03/2016 11:16 [facility] COMPARISON: No previous studies available for comparison. INDICATIONS : Fall. Posterior scapula and back pain. MEDICAL HISTORY : None. SURGICAL HISTORY : None. ENCOUNTER: Initial ACUITY: 2 days PAIN SCORE: 7/10 LOCATION: Left shoulder, scapula FINDINGS: There is mild osteoarthritis of the shoulder joint and a.c. joint. No acute fracture or dislocation. CONCLUSION: 1. Mild osteoarthritis of the left shoulder. Zeeshan Marmolejo MD on December 03, 2016 at 13:35 Board Certified Radiologist. This report was verified electronically.
--- NOTE | 2016-12-03 14:11 | PD.CARD.PN ---
Subjective Subjective Remarks No angina, SOB unchanged, fell this AM Objective Medications Current Medications Medications (Trade) Dose Ordered Sig/Jeniffer Route Start Time Stop Time Status Last Admin (Peridex 0.12% Liq) 15 ml BID@08,20 MT 11/24/16 20:00 11/28/16 08:00 Miscellaneous Information 1 Q361D XX 11/24/16 11:30 11/24/16 11:30 (Chlorhexidine 2% Cloth) Taper DAILY@04 TOP 11/25/16 04:00 11/21/17 03:59 12/01/16 03:49 (Chlorhexidine 2% Cloth) 3 pack UNSCH PRN TOP 11/24/16 11:30 (Buspar) 10 mg BID PO 11/26/16 21:00 12/03/16 09:39 (Robitussin Ac 200-20 Mg/10 ml Liq) 5 ml Q6H PRN PO 11/26/16 10:30 (Spiriva Inh) 18 mcg DAILY INH 11/27/16 09:00 12/03/16 09:00 (Beneprotein Powder) 1 pack TID G-TUBE 11/27/16 13:00 12/02/16 08:35 (Coreg) 3.125 mg Q12H PO 11/27/16 13:00 Hold 11/29/16 02:00 (Lipitor) 20 mg HS PO 11/27/16 21:00 12/02/16 21:43 (Habitrol 14 Mg Patch.24 Hr) 1 patch DAILY TOPICAL 11/27/16 15:00 12/03/16 09:38 Miscellaneous Information 1 HS T-DERMAL 11/27/16 21:00 12/02/16 21:00 (Lovenox Inj) 40 mg Q24H SQ 11/28/16 10:15 12/03/16 09:39 (Morphine Inj) 2 mg Q3H PRN IV PUSH 11/28/16 20:45 12/02/16 18:51 (Symbicort 160-4.5 Inh) 2 puff Q12HR INH 11/29/16 09:00 12/03/16 09:00 (Ativan Inj) 1 mg Q2H PRN IV PUSH 11/29/16 07:45 12/03/16 01:26 (Morphine Inj) 2 mg Q3H PRN IV PUSH 11/29/16 07:45 12/02/16 11:12 (Protonix) 40 mg DAILY PO 11/30/16 09:00 12/03/16 09:39 (Lasix) 20 mg DAILY PO 12/01/16 09:00 12/03/16 09:39 (K-Lyte Cl Eff) 25 meq DAILY PO 12/01/16 09:00 12/03/16 09:39 (Tylenol-Codeine #3) 1 tab Q6H PRN PO 11/30/16 09:15 12/03/16 12:01 (SoluMEDROL INJ) 60 mg Q8HR IV PUSH 12/01/16 14:00 12/03/16 05:00 (D50w (Vial) Inj) 50 ml UNSCH PRN IV 12/01/16 10:15 (Glucagon Inj) 1 mg UNSCH PRN OTHER 12/01/16 10:15 (NovoLIN R SUPPLEMENTAL SCALE) 1 Q6H SQ 12/01/16 10:15 (Aspirin Chew) 81 mg DAILY PO 12/02/16 09:00 12/03/16 09:38 (Prinivil) 10 mg DAILY PO 12/02/16 09:00 12/03/16 09:38 Vital Signs / I&O Vital Signs Date Time Temp Pulse Resp B/P Pulse Ox O2 Delivery O2 Flow Rate FiO2 12/03/16 12:00 97.7 73 16 110/60 92 12/03/16 05:05 Nasal Cannula 4.00 12/03/16 04:19 96.4 72 18 123/70 98 12/02/16 23:46 98.5 77 21 101/59 97 12/02/16 22:42 75 12/02/16 21:45 Nasal Cannula 4.00 12/02/16 20:30 99.1 88 21 106/59 95 12/02/16 15:24 96 Nasal Cannula 4.00 I/O 12/02/16 12/02/16 12/02/16 12/03/16 12/03/16 12/03/16 07:00 15:00 23:00 07:00 15:00 23:00 Intake Total 240 ml 500 ml 280 ml 360 ml Output Total 300 ml Balance -60 ml 500 ml 280 ml 360 ml Intake Oral 240 ml 500 ml 280 ml 360 ml IV Total 0 ml 0 ml Output Urine Total 300 ml # Voids 3 2 2 # Bowel Movements 1 2 Physical Exam GENERAL: In NAD SKIN: Warm and dry. HEAD: Normocephalic. EYES: No scleral icterus. No injection or drainage. NECK: Supple, trachea midline. No JVD or lymphadenopathy. CARDIOVASCULAR: Regular rate and rhythm without murmurs, gallops, or rubs. RESPIRATORY: Breath sounds equal bilaterally. No accessory muscle use. GASTROINTESTINAL: Abdomen soft, non-tender, nondistended. MUSCULOSKELETAL: No cyanosis, or edema. Groin stable. Laboratory Laboratory Tests Test 12/03/16 06:07 White Blood Count 7.8 TH/MM3 Red Blood Count 3.88 MIL/MM3 Hemoglobin 12.2 GM/DL Hematocrit 36.3 % Mean Corpuscular Volume 93.4 FL Mean Corpuscular Hemoglobin 31.4 PG Mean Corpuscular Hemoglobin 33.7 % Concent Red Cell Distribution Width 13.3 % Platelet Count 126 TH/MM3 Mean Platelet Volume 9.4 FL Neutrophils (%) (Auto) 82.5 % Lymphocytes (%) (Auto) 8.9 % Monocytes (%) (Auto) 8.6 % Eosinophils (%) (Auto) 0.0 % Basophils (%) (Auto) 0.0 % Neutrophils # (Auto) 6.4 TH/MM3 Lymphocytes # (Auto) 0.7 TH/MM3 Monocytes # (Auto) 0.7 TH/MM3 Eosinophils # (Auto) 0.0 TH/MM3 Basophils # (Auto) 0.0 TH/MM3 CBC Comment DIFF FINAL Differential Comment Sodium Level 141 MEQ/L Potassium Level 4.0 MEQ/L Chloride Level 101 MEQ/L Carbon Dioxide Level 33.0 MEQ/L Anion Gap 7 MEQ/L Blood Urea Nitrogen 19 MG/DL Creatinine 0.37 MG/DL Estimat Glomerular Filtration 176 ML/MIN Rate Random Glucose 106 MG/DL Calcium Level 8.2 MG/DL Imaging Last Impressions Shoulder X-Ray 12/03/16 0000 Signed Impressions: Service Date/Time: December 11:16 - CONCLUSION: 1. Mild osteoarthritis of the left shoulder. Zeeshan Marmolejo MD Chest X-Ray 12/01/16 0600 Signed Impressions: Service Date/Time: Thursday, December 01, 2016 03:28 - CONCLUSION: No acute disease. Huber Barkley MD Assessment and Plan Problem List: (1) Acute respiratory failure (2) COPD (chronic obstructive pulmonary disease) (3) Tobacco abuse (4) Hypertension (5) Cardiomyopathy Assessment and Plan No new cardiac issues. Cath showed mild CAD and moderate LV dysfunction c/w Mehul Ty CM. Continue therapy for CHF including carvedilol and lisinopril. Anticipate improvement of LV fx with therapy. Increase activity. D/w pt and family. Problem Qualifiers (1) Acute respiratory failure: Qualified Code: J96.02 - Acute respiratory failure with hypercapnia (2) Cardiomyopathy: Qualified Code: I51.81 - Stress-induced cardiomyopathy Pearl Lind MD Dec 03, 2016 14:11
[2016-12-03 16:00] VITALS: BP 116/61; PULSE 85; RESP 19; TEMP 97.1; O2SAT 96
[2016-12-03 19:58] VITALS: PULSE 79
[2016-12-03 20:00] VITALS: BP 120/60; PULSE 85; RESP 18; TEMP 98.5; O2SAT 99
[2016-12-03] MEDS: REMOVE OLD PATCH T-DERMAL SCH (20:08)
[2016-12-03] MEDS: ATORVASTATIN 20 MG TAB PO SCH (20:10)
--- NOTE | 2016-12-03 20:24 | HHI.PR ---
Subjective Remarks 61 YOWF with RF, s/p extubation, COPD, CHF,CMP Doing well Had cardiac cath No sign obst EF decreased had a fall in the bath room Objective Vital Signs Vital Signs Date Time Temp Pulse Resp B/P Pulse Ox O2 Delivery O2 Flow Rate FiO2 12/03/16 16:00 97.1 85 19 116/61 96 12/03/16 12:00 97.7 73 16 110/60 92 12/03/16 05:05 Nasal Cannula 4.00 12/03/16 04:19 96.4 72 18 123/70 98 12/02/16 23:46 98.5 77 21 101/59 97 12/02/16 22:42 75 12/02/16 21:45 Nasal Cannula 4.00 12/02/16 20:30 99.1 88 21 106/59 95 I/O 12/02/16 12/02/16 12/02/16 12/03/16 12/03/16 12/03/16 07:00 15:00 23:00 07:00 15:00 23:00 Intake Total 240 ml 500 ml 280 ml 360 ml 600 ml Output Total 300 ml Balance -60 ml 500 ml 280 ml 360 ml 600 ml Intake Oral 240 ml 500 ml 280 ml 360 ml 600 ml IV Total 0 ml 0 ml Output Urine Total 300 ml # Voids 3 2 2 5 # Bowel Movements 1 2 0 Result Diagram: 12/03/16 0607 12/03/16 0607 Objective Remarks GENERAL: MBMN WF,NAD SKIN: Warm and dry. HEAD: Normocephalic. EYES: No scleral icterus. No injection or drainage. NECK: Supple, trachea midline. No JVD or lymphadenopathy. CARDIOVASCULAR: Regular rate and rhythm without murmurs, gallops, or rubs. RESPIRATORY: Breath sounds equal bilaterally. No accessory muscle use. End exp rhonchi GASTROINTESTINAL: Abdomen soft, non-tender, nondistended. MUSCULOSKELETAL: No cyanosis, or edema. BACK: Nontender without obvious deformity. No CVA tenderness. A/P Assessment and Plan RF s/p extubation COPD exac CHF CMP Nicotine use PLAN: Aerosol nebs DC Solumedrol PO pred Supplement 02 DC plans underway Porfirio Oneil MD Dec 03, 2016 20:24
[2016-12-03 21:25] VITALS: O2SAT 97
[2016-12-04] VITALS: BP 119/56; PULSE 85; RESP 18; TEMP 98.2; O2SAT 97
[2016-12-04 04:00] VITALS: BP 120/64; PULSE 71; RESP 16; TEMP 97; O2SAT 99
[2016-12-04] MEDS: CHLORHEXIDINE GLUCONATE 2 % 1 PACK (2 CLOTHS) TOP SCH (04:00)
[2016-12-04] MEDS: INSULIN NovoLIN REGULAR SUPPLEMENTAL SCALE SQ SCH ×2 (04:15→10:15)
[2016-12-04 08:00] VITALS: BP 112/57; PULSE 72; RESP 17; TEMP 96.8; O2SAT 99
[2016-12-04] MEDS: CHLORHEXIDINE 0.12% (ORAL KIT) 15 ML CUP MT SCH (08:00)
[2016-12-04] MEDS: BENEPROTEIN POWDER 1 PACK G-TUBE SCH ×2 (09:00→12:15)
[2016-12-04] MEDS: PANTOPRAZOLE SOD 40 MG DELAYED RELEASE TAB PO SCH (09:00)
[2016-12-04] MEDS: BUDESONIDE-FORMOTEROL 160/4.5 MCG INHALER INH SCH (09:29)
[2016-12-04] MEDS: NICOTINE 14 MG/24 HR PATCH TOPICAL SCH (09:29)
[2016-12-04] MEDS: busPIRone HCL 10 MG TAB PO SCH (09:30)
[2016-12-04] MEDS: ENOXAPARIN SODIUM 40 MG/0.4 ML SYRINGE SQ SCH (09:30)
[2016-12-04] MEDS: predniSONE 10 MG TAB PO SCH ×2 (09:30→12:15)
[2016-12-04] MEDS: ACETAMINOPHEN/CODEINE 300 MG/30 MG TAB PO PRN (09:31)
[2016-12-04] MEDS: LISINOPRIL 10 MG TAB PO SCH (09:31)
[2016-12-04] MEDS: FUROSEMIDE 20 MG TAB PO SCH (09:31)
[2016-12-04] MEDS: ASPIRIN 81 MG CHEW TAB PO SCH (09:32)
[2016-12-04] MEDS: POTASSIUM CHLORIDE 25 MEQ EFFERVESCENT TAB PO SCH (09:33)
[2016-12-04] MEDS: TIOTROPIUM BROMIDE 18 MCG INH INH SCH (09:38)
[2016-12-04 12:00] VITALS: BP 123/57; PULSE 82; RESP 17; TEMP 98.4; O2SAT 94
--- NOTE | 2016-12-04 13:26 | HHI.FF ---
Face to Face Verification Diagnosis: (1) COPD with acute exacerbation (2) Takotsubo cardiomyopathy Physical Therapy Order: Evaluate and Treat Home Health Nursing Order: Medical education Signs/symptoms of disease process Oxygen administration education Medication education-adverse effect I have seen patient Maria Teresa Hollingsworth on 12/04/16. My clinical findings support the need for the requested home health care services because: Ltd mobility - disease progression Patient has SOB I certify that my clinical findings support that this patient is homebound because: Hx COPD- exertion dyspnea/weakness Unsafe to leave home unassisted Poor cardiac reserve Sathish Cedillo MD Dec 04, 2016 13:26
[2016-12-04] MEDS ORDERED: ALBU0.08 INH (13:32)
[2016-12-04] MEDS ORDERED: OXYGENDME NAS.CANULA (13:32)
[2016-12-04] MEDS ORDERED: ASPI81CH25 PO (13:32)
[2016-12-04] MEDS ORDERED: ATOR20TA15 PO (13:32)
[2016-12-04] MEDS ORDERED: LISI10TA3 PO (13:32)
[2016-12-04] MEDS ORDERED: SYMB160A INH (13:32)
[2016-12-04] MEDS ORDERED: FURO20TA PO (13:32)
[2016-12-04] MEDS ORDERED: KLYTECL PO (13:32)
[2016-12-04] MEDS ORDERED: ACET-534 PO (13:32)
[2016-12-04] MEDS ORDERED: CARV3.125 PO (13:32)
[2016-12-04] MEDS ORDERED: PRED10 PO (13:32)
[2016-12-04] MEDS ORDERED: NEBULIZER1 MI1 (13:32)
--- NOTE | 2016-12-04 13:36 | HHI.DS ---
Discharge Summary Admission Date Nov 24, 2016 at 10:01 Discharge Date: Dec 04, 2016 Admitting Diagnosis (1) Acute respiratory failure ICD Code: J96.00 Diagnosis: Principal (2) COPD with acute exacerbation ICD Code: J44.1 Diagnosis: Principal (3) Hypokalemia ICD Code: E87.6 (4) COPD (chronic obstructive pulmonary disease) ICD Code: J44.9 Diagnosis: Secondary (5) Tobacco abuse ICD Code: Z72.0 Diagnosis: Secondary (6) Hypertension ICD Code: I10 Diagnosis: Secondary (7) Fall ICD Code: W19.XXXA Diagnosis: Secondary (8) Takotsubo cardiomyopathy ICD Code: I51.81 Diagnosis: Principal (9) Left upper arm pain ICD Code: M79.622 Diagnosis: Secondary Procedures 11/25/16 intubation 12/01/16 retrograde heart catheterization with left ventriculography and selective coronary angiography Brief History - From Admission Patient is a 60-year-old female with past medical history of COPD, hypertension , tobacco abuse. Apparently patient called EMS for increasing shortness of breath and COPD exacerbation. EMS gave her back to back breathing treatments but due to impending respiratory failure patient was intubated. Patient received 2 mg of Ativan and 20 mg of etomidate for sedation and for intubation. In the ER patient was given IV Solu-Medrol and breathing treatments. Chest x- ray was unremarkable. CT pulmonary angiogram did not show any pulmonary embolism or pneumonia shortly chronic scarring. Patient was transferred to [facility] from [place] ER I evaluated the patient in the ICU. She is intubated sedated has bilateral wheezing on exam. is at the bedside, confirms ongoing smoking history and history of COPD. No previous intubations. I have placed her on scheduled IV Solu-Medrol, scheduled DuoNeb and IV Levaquin. Sputum culture is ordered CBC/BMP: 12/03/16 0607 12/03/16 0607 Significant Findings Laboratory Tests Test 12/02/16 12/03/16 06:15 06:07 Red Blood Count 3.76 MIL/MM3 3.88 MIL/MM3 (4.00-5.30) (4.00-5.30) Hematocrit 34.9 % (35.0-46.0) Platelet Count 141 TH/MM3 126 TH/MM3 (150-450) (150-450) Neutrophils (%) (Auto) 80.6 % 82.5 % (16.0-70.0) (16.0-70.0) Lymphocytes (%) (Auto) 7.0 % 8.9 % (9.0-44.0) (9.0-44.0) Monocytes (%) (Auto) 12.3 % 8.6 % (0.0-8.0) (0.0-8.0) Lymphocytes # (Auto) 0.7 TH/MM3 0.7 TH/MM3 (1.0-4.8) (1.0-4.8) Monocytes # (Auto) 1.2 TH/MM3 (0-0.9) Carbon Dioxide Level 35.1 MEQ/L 33.0 MEQ/L (21.0-32.0) (21.0-32.0) Blood Urea Nitrogen 21 MG/DL (7-18) 19 MG/DL (7-18) Creatinine 0.41 MG/DL 0.37 MG/DL (0.50-1.00) (0.50-1.00) Random Glucose 109 MG/DL (74-106) Alkaline Phosphatase 41 U/L (45-117) Total Protein 5.4 GM/DL (6.4-8.2) Albumin 2.8 GM/DL (3.4-5.0) Calcium Level 8.2 MG/DL (8.5-10.1) Imaging Last Impressions Shoulder X-Ray 12/03/16 0000 Signed Impressions: Service Date/Time: December 11:16 - CONCLUSION: 1. Mild osteoarthritis of the left shoulder. Zeeshan Marmolejo MD Chest X-Ray 12/01/16 0600 Signed Impressions: Service Date/Time: Thursday, December 01, 2016 03:28 - CONCLUSION: No acute disease. Huber Barkley MD PE at Discharge General: No acute distress. Heart: Regular rate and rhythm. No murmur. Lungs: Clear breath sounds. Breathing is nonlabored. On room air. No wheezing. Abdomen: Soft, mildly tender in the lower abdomen without rebound or guarding, nondistended. Extremities: No lower extremity edema. Tenderness to palpation of the lateral upper left arm. Alert, awake, oriented 3. Pt update on day of discharge Shortness of breath better, on nasal cannula. Cleared by pulmonary and cardiology for discharge. No chest pain. Patient refused rehabilitation placement. Hospital Course This is a 60-year-old female who was admitted for shortness of breath. The patient was initially admitted to the intensive care unit, please refer to the notes from the superior court justice for details. Patient was initially intubated, extubated 11/25/16 and was reintubated. She was extubated again on 11/28/16. Pulmonary was consulted. She will continue tapering dose of steroids, bronchodilators, Symbicort, Spiriva. She finished empiric course of Levaquin, cultures remained negative. She was also found to have possible heart failure, cardiology was consulted. Cardiac catheterization showed mild CAD and moderate left ventricular dysfunction. She will continue aspirin, statin, carvedilol, lisinopril. She'll be discharged home with home health care after refusing rehabilitation placement. Pt Condition on Discharge: Good Discharge Disposition: Disch w/ Home Health Serv Discharge Time: > 30 minutes Discharge Instructions DIET: Follow Instructions for: Heart Healthy Diet Activities you can perform: Regular-No Restrictions New Medications: Nebulizer (Nebulizer) 1 Mis Mis 1 EA .ROUTE DIRECTED Breathing Treatment #1 Ref 0 EA Nebulizer (Nebulizer) 1 Mis Mis 1 EA .ROUTE DIRECTED Breathing Treatment #1 Ref 0 EA Oxygen (O2) (Oxygen (O2)) Device 2 LITER ALEX.CANULA CONTINUOUS Oxygen Concentrator Portable Gaseous 2 L/min via Nasal Canula Continuous For 99 months Prevent Hypoxemia #2 CYLINDER Acetaminophen W/ Codeine (Acetaminophen/Codeine Hermila 300-30 mg) 1 Tab Tab 1 TAB PO Q6H PRN 3-6 pain #10 TAB Albuterol Neb (Albuterol Neb) 2.5 Mg/3 Ml Neb 2.5 MG INH Q4HR NEB PRN SHORTNESS OF BREATH #1 BOX Aspirin (Aspirin Low Strength) 81 Mg Chew 81 MG PO DAILY heart #30 EA Atorvastatin (Atorvastatin) 20 Mg Tab 20 MG PO HS cholesterol #30 TAB Budesonide-Formoterol Inh (Symbicort Inh) 160-4.5 Mcg/Act Aero 2 PUFF INH Q12HR COPD #1 INHALER Carvedilol (Coreg) 3.125 Mg Tab 3.125 MG PO Q12H heart #60 TAB Furosemide (Furosemide) 20 Mg Tab 20 MG PO DAILY CHF #30 TAB Lisinopril (Lisinopril) 10 Mg Tab 10 MG PO DAILY HTN/CHf #30 TAB Potassium Bicarb-Chloride Effervescent (Effervescent Potassium Chloride 25 Meq) 25 Meq Tab 25 MEQ PO DAILY supplement #30 TAB Prednisone (Prednisone) 10 Mg Tab 10 MG PO TID COPD #10 TAB Continued Medications: Albuterol 18 GM Inh (Ventolin Hfa 18 GM Inh) 90 Mcg/Act Aer 1 PUFF INH Q4H PRN SHORTNESS OF BREATH #1 Ref 0 INHALER Buspirone (Buspirone) 10 Mg Tab 10 MG PO BID Anxiety Ref [address] (Dul[address]etine [address]) 60 Mg Capdr 60 PO DAILY #30 Ref 0 CAP Guaifenesin-Codeine Liq (Guaifenesin-Codeine Liq) 100-10 Mg/5 Ml Soln 5 ML PO Q6H PRN COUGH #1 Ref 0 BOTTLE Tiotropium Inh (Spiriva Handihaler) 18 Mcg Cap 18 MCG INH DAILY 1 capsule = 18 mcg COPD #30 Ref 0 CAP Discontinued Medications: Doxycycline Hyclate (Doxycycline Hyclate) 100 Mg Cap 100 MG PO BID Infection Ref 0 CAP Lisinopril (Lisinopril) 20 Mg Tab 20 MG PO DAILY #30 Ref 0 TAB Prednisone (21) 10 mg tab Dose Pack (Prednisone (21) 10 mg tab Dose Pack) 10 Mg Pack 10 MG PO DIRECTED Inflammation #1 Ref 0 Sathish Ho MD Dec 04, 2016 13:36
--- NOTE | 2016-12-04 15:08 | PD.CARD.PN ---
Subjective Subjective Remarks No CP or SOB, feels better Objective Medications Current Medications Medications (Trade) Dose Ordered Sig/Jeniffer Route Start Time Stop Time Status Last Admin (Peridex 0.12% Liq) 15 ml BID@08,20 MT 11/24/16 20:00 11/28/16 08:00 Miscellaneous Information 1 Q361D XX 11/24/16 11:30 11/24/16 11:30 (Chlorhexidine 2% Cloth) Taper DAILY@04 TOP 11/25/16 04:00 11/21/17 03:59 12/01/16 03:49 (Chlorhexidine 2% Cloth) 3 pack UNSCH PRN TOP 11/24/16 11:30 (Buspar) 10 mg BID PO 11/26/16 21:00 12/04/16 09:30 (Robitussin Ac 200-20 Mg/10 ml Liq) 5 ml Q6H PRN PO 11/26/16 10:30 (Spiriva Inh) 18 mcg DAILY INH 11/27/16 09:00 12/04/16 09:38 (Beneprotein Powder) 1 pack TID G-TUBE 11/27/16 13:00 12/02/16 08:35 (Coreg) 3.125 mg Q12H PO 11/27/16 13:00 Hold 11/29/16 02:00 (Lipitor) 20 mg HS PO 11/27/16 21:00 12/03/16 20:10 (Habitrol 14 Mg Patch.24 Hr) 1 patch DAILY TOPICAL 11/27/16 15:00 12/04/16 09:29 Miscellaneous Information 1 HS T-DERMAL 11/27/16 21:00 12/03/16 20:08 (Lovenox Inj) 40 mg Q24H SQ 11/28/16 10:15 12/04/16 09:30 (Morphine Inj) 2 mg Q3H PRN IV PUSH 11/28/16 20:45 12/02/16 18:51 (Symbicort 160-4.5 Inh) 2 puff Q12HR INH 11/29/16 09:00 12/04/16 09:29 (Ativan Inj) 1 mg Q2H PRN IV PUSH 11/29/16 07:45 12/03/16 22:33 (Morphine Inj) 2 mg Q3H PRN IV PUSH 11/29/16 07:45 12/02/16 11:12 (Protonix) 40 mg DAILY PO 11/30/16 09:00 12/04/16 09:00 (Lasix) 20 mg DAILY PO 12/01/16 09:00 12/04/16 09:31 (K-Lyte Cl Eff) 25 meq DAILY PO 12/01/16 09:00 12/04/16 09:33 (Tylenol-Codeine #3) 1 tab Q6H PRN PO 11/30/16 09:15 12/04/16 09:31 (D50w (Vial) Inj) 50 ml UNSCH PRN IV 12/01/16 10:15 (Glucagon Inj) 1 mg UNSCH PRN OTHER 12/01/16 10:15 (NovoLIN R SUPPLEMENTAL SCALE) 1 Q6H SQ 12/01/16 10:15 (Aspirin Chew) 81 mg DAILY PO 12/02/16 09:00 12/04/16 09:32 (Prinivil) 10 mg DAILY PO 12/02/16 09:00 12/04/16 09:31 (Deltasone) 10 mg TID PO 12/04/16 09:00 12/04/16 12:15 Vital Signs / I&O Vital Signs Date Time Temp Pulse Resp B/P Pulse Ox O2 Delivery O2 Flow Rate FiO2 12/04/16 12:00 98.4 82 17 123/57 94 12/04/16 08:00 96.8 72 17 112/57 99 12/04/16 04:00 97.0 71 16 120/64 99 12/04/16 00:00 98.2 85 18 119/56 97 12/03/16 21:25 97 Nasal Cannula 3.00 12/03/16 20:00 98.5 85 18 120/60 99 12/03/16 19:58 Nasal Cannula 4.00 Humidified 12/03/16 19:58 79 12/03/16 16:00 97.1 85 19 116/61 96 I/O 12/03/16 12/03/16 12/03/16 12/04/16 12/04/16 12/04/16 07:00 15:00 23:00 07:00 15:00 23:00 Intake Total 360 ml 600 ml 240 ml 240 ml 240 ml Balance 360 ml 600 ml 240 ml 240 ml 240 ml Intake Oral 360 ml 600 ml 240 ml 240 ml 240 ml IV Total 0 ml # Voids 2 5 1 2 7 # Bowel Movements 0 0 Physical Exam GENERAL: In NAD SKIN: Warm and dry. HEAD: Normocephalic. EYES: No scleral icterus. No injection or drainage. NECK: Supple, trachea midline. No JVD or lymphadenopathy. CARDIOVASCULAR: Regular rate and rhythm without murmurs, gallops, or rubs. RESPIRATORY: Breath sounds equal bilaterally. No accessory muscle use. GASTROINTESTINAL: Abdomen soft, non-tender, nondistended. MUSCULOSKELETAL: No cyanosis, or edema. Groin stable. Laboratory Laboratory Tests Test 11/30/16 11/30/16 12/01/16 12/02/16 03:53 15:37 08:54 06:15 Hypersegmented Polys 1+ Platelet Estimate NORMAL Platelet Morphology Comment NORMAL Red Cell Morphology Comment NORMAL Magnesium Level 2.2 MG/DL Triglycerides Level 135 MG/DL Cholesterol Level 202 MG/DL LDL Cholesterol 111 MG/DL HDL Cholesterol 63.9 MG/DL Cholesterol/HDL Ratio 3.16 RATIO Total Bilirubin 0.7 MG/DL Aspartate Amino Transf 37 U/L (AST/SGOT) Alanine Aminotransferase 43 U/L (ALT/SGPT) Alkaline Phosphatase 41 U/L Total Protein 5.4 GM/DL Albumin 2.8 GM/DL Test 12/03/16 06:07 White Blood Count 7.8 TH/MM3 Red Blood Count 3.88 MIL/MM3 Hemoglobin 12.2 GM/DL Hematocrit 36.3 % Mean Corpuscular Volume 93.4 FL Mean Corpuscular Hemoglobin 31.4 PG Mean Corpuscular Hemoglobin 33.7 % Concent Red Cell Distribution Width 13.3 % Platelet Count 126 TH/MM3 Mean Platelet Volume 9.4 FL Neutrophils (%) (Auto) 82.5 % Lymphocytes (%) (Auto) 8.9 % Monocytes (%) (Auto) 8.6 % Eosinophils (%) (Auto) 0.0 % Basophils (%) (Auto) 0.0 % Neutrophils # (Auto) 6.4 TH/MM3 Lymphocytes # (Auto) 0.7 TH/MM3 Monocytes # (Auto) 0.7 TH/MM3 Eosinophils # (Auto) 0.0 TH/MM3 Basophils # (Auto) 0.0 TH/MM3 CBC Comment DIFF FINAL Differential Comment Sodium Level 141 MEQ/L Potassium Level 4.0 MEQ/L Chloride Level 101 MEQ/L Carbon Dioxide Level 33.0 MEQ/L Anion Gap 7 MEQ/L Blood Urea Nitrogen 19 MG/DL Creatinine 0.37 MG/DL Estimat Glomerular Filtration 176 ML/MIN Rate Random Glucose 106 MG/DL Calcium Level 8.2 MG/DL Imaging Last Impressions Shoulder X-Ray 12/03/16 0000 Signed Impressions: Service Date/Time: December 11:16 - CONCLUSION: 1. Mild osteoarthritis of the left shoulder. Zeeshan Marmolejo MD Chest X-Ray 12/01/16 0600 Signed Impressions: Service Date/Time: Thursday, December 01, 2016 03:28 - CONCLUSION: No acute disease. Huber Barkley MD Assessment and Plan Problem List: (1) Acute respiratory failure (2) COPD (chronic obstructive pulmonary disease) (3) Tobacco abuse (4) Hypertension (5) Cardiomyopathy Assessment and Plan Good progress. Cath showed mild CAD and moderate LV dysfunction c/w Tako Tsubo CM. Continue therapy for CHF including carvedilol and lisinopril. Anticipate improvement of LV fx with therapy, recheck echo in 3 mo. Increase activity. DC home as planned. D/w pt and family. Problem Qualifiers (1) Acute respiratory failure: Qualified Code: J96.02 - Acute respiratory failure with hypercapnia (2) Cardiomyopathy: Qualified Code: I51.81 - Stress-induced cardiomyopathy Pearl Lind MD Dec 04, 2016 15:08
--- NOTE | 2016-12-04 17:49 | HHI.PR ---
Subjective Remarks 61 YOWF with RF, s/p extubation, COPD, CHF,CMP Doing well Had cardiac cath No sign obst EF decreased anxious to go home Objective Vital Signs Vital Signs Date Time Temp Pulse Resp B/P Pulse Ox O2 Delivery O2 Flow Rate FiO2 12/04/16 12:00 98.4 82 17 123/57 94 12/04/16 08:00 96.8 72 17 112/57 99 12/04/16 04:00 97.0 71 16 120/64 99 12/04/16 00:00 98.2 85 18 119/56 97 12/03/16 21:25 97 Nasal Cannula 3.00 12/03/16 20:00 98.5 85 18 120/60 99 12/03/16 19:58 Nasal Cannula 4.00 Humidified 12/03/16 19:58 79 I/O 12/03/16 12/03/16 12/03/16 12/04/16 12/04/16 12/04/16 07:00 15:00 23:00 07:00 15:00 23:00 Intake Total 360 ml 600 ml 240 ml 240 ml 240 ml Balance 360 ml 600 ml 240 ml 240 ml 240 ml Intake Oral 360 ml 600 ml 240 ml 240 ml 240 ml IV Total 0 ml # Voids 2 5 1 2 7 # Bowel Movements 0 0 Result Diagram: 12/03/16 0607 12/03/16 0607 Objective Remarks GENERAL: MBMN WF,NAD SKIN: Warm and dry. HEAD: Normocephalic. EYES: No scleral icterus. No injection or drainage. NECK: Supple, trachea midline. No JVD or lymphadenopathy. CARDIOVASCULAR: Regular rate and rhythm without murmurs, gallops, or rubs. RESPIRATORY: Breath sounds equal bilaterally. No accessory muscle use. End exp rhonchi GASTROINTESTINAL: Abdomen soft, non-tender, nondistended. MUSCULOSKELETAL: No cyanosis, or edema. BACK: Nontender without obvious deformity. No CVA tenderness. A/P Assessment and Plan RF s/p extubation COPD exac CHF CMP Nicotine use PLAN: Aerosol nebs DC Solumedrol PO pred Supplement 02 DC plans underway Will FU in office Porfirio Oneil MD Dec 04, 2016 17:49
== END 2016-12-04 15:08 | disposition home health service (06) | DRG 208 ==
LOC: NEDDLT 09:43 → N03A 10:01 → HIMW 11-30 16:00 → N07A 12-02 12:03
PROVIDERS: ADMIT Anesthesiology; ATTEND Hospitalist
PROC: 5A1935Z Respiratory Ventilation, Less than 24 Consecutive Hours (ICD-10-PCS; 2016-11-24)
PROC: 0BH17EZ Insertion of Endotracheal Airway into Trachea, Via Natural or Artificial Opening (ICD-10-PCS; principal; 2016-11-25)
PROC: 5A1945Z Respiratory Ventilation, 24-96 Consecutive Hours (ICD-10-PCS; 2016-11-25)
PROC: 5A09357 Assistance with Respiratory Ventilation, Less than 24 Consecutive Hours, Continuous Positive Airway Pressure (ICD-10-PCS; 2016-11-28)
PROC: 4A023N7 Measurement of Cardiac Sampling and Pressure, Left Heart, Percutaneous Approach (ICD-10-PCS; 2016-12-01)
PROC: B2111ZZ Fluoroscopy of Multiple Coronary Arteries using Low Osmolar Contrast (ICD-10-PCS; 2016-12-01)
PROC: B2151ZZ Fluoroscopy of Left Heart using Low Osmolar Contrast (ICD-10-PCS; 2016-12-01)
DX: J96.02 Acute respiratory failure with hypercapnia (principal); I21.4 Non-ST elevation (NSTEMI) myocardial infarction; E87.2 Acidosis; I50.22 Chronic systolic (congestive) heart failure; J44.1 Chronic obstructive pulmonary disease with (acute) exacerbation; I51.81 Takotsubo syndrome; I11.0 Hypertensive heart disease with heart failure; E87.6 Hypokalemia; F17.210 Nicotine dependence, cigarettes, uncomplicated; I25.10 Atherosclerotic heart disease of native coronary artery without angina pectoris; M79.622 Pain in left upper arm; W19.XXXA Unspecified fall, initial encounter; Y92.231 Patient bathroom in hospital as the place of occurrence of the external cause; J98.01 Acute bronchospasm; R00.0 Tachycardia, unspecified; M25.512 Pain in left shoulder
CPT/HCPCS: 31500; 36600; 70450; 71010; 71250; 71275; 73030; 76937; 80048; 80053; 80061; 82550; 82552; 82805; 82948; 83735; 83880; 84100; 84132; 84155; 84484; 85025; 85379; 85610; 85730; 87070; 87205; 93005; 93306; 93458; 94002; 94003; 94620; 94640; C1769; C1893; J0330; J1644; J1650; J1940; J1956; J2060; J2250; J2270; J2405; J2930; J3010; J3480; J7030; J7512; J7613; Q9967